=== PATIENT | male | born 1945 | race Caucasian/White ===

== ENCOUNTER 2019-09-03 21:27 | Emergency (ER) | payer OTHER ==
--- OUTSIDE RECORDS SUMMARY | 2019-09-03 21:30 | XMS REPORT | Clinical Summary ---
:1945 Author Organization [facility] Address [address] [place] [address] Care Team Providers Name Role Phone MD Edvin Primary Care Provider Allergies Active Allergy Reactions Severity Noted Date Comments Aspirin Itching 04/01/2019 Clopidogrel Itching 04/01/2019 Enoxaparin Itching 04/01/2019 Heparin Itching 04/01/2019 Other Itching 11/28/2018 All blood thinn ers Medications Medication Sig Dispensed Refills Start Date End Date Status metoprolol Take 75 mg by 0 Activ e succinate XL mouth 2 (two) (TOPROL-XL) 50 times a day. mg 24 hr tablet loperamide Take 2 mg by 0 Active (IMODIUM) 2 mg mouth 4 (four) capsule times a day as needed for diarrhea. clobetasol Apply 0 Active (TEMOVATE) 0.05 topically 2 % cream (two) times a day. Apply to back ALPRAZolam Take 0.5 mg by 0 Acti ve (XANAX) 0.5 MG mouth 2 (two) tablet times a day. calcium Chew 1 tablet 0 Active carbonate (TUMS) 3 (three) 200 mg calcium times a day. (500 mg) Before meals chewable tablet and snacks terazosin Take 5 mg by 0 12/08/2018 Active (HYTRIN) 5 MG mouth as capsule needed. NIFEdipine XL Take 30 mg by 0 Ac tive (PROCARDIA XL) mouth daily. 30 MG 24 hr tablet lidocaine-priloc Apply 1 each 0 06/25/2019 Ac tive leonard (EMLA) topically as 2.5-2.5 % cream needed for mild pain for up to 30 days. norflurane Apply 1 spray 1 Can 0 06/25/2019 Acti ve (PAIN-EASE) topically as aerosol,spray needed (Pain for dialysis) for up to 30 days. oxyCODone-acetam Take 1 tablet 20 tablet 0 06/25/2019 Active inophen by mouth every (Percocet) 5-325 6 (six) hours mg per as needed for tabletIndication moderate pain s: chronic pain for up to 5 days .chronic pain. Max Daily Amount: 4 tablets NIFEdipine XL Take 30 mg by 0 Di scontinued (PROCARDIA XL) mouth 2 (two) 0 90 MG 24 hr times a day. tablet traMADol Take 1 tablet 30 tablet 0 04/01/2019 Expir ed (ULTRAM) 50 mg (50 mg total) 0 tabletIndication by mouth every s: acute pain 8 (eight) hours as needed for severe pain for up to 10 days .acute pain. traMADol Take 1 tablet 30 tablet 0 04/21/2019 Expir ed (ULTRAM) 50 mg (50 mg total) 0 tabletIndication by mouth every s: acute pain 6 (six) hours as needed for moderate pain for up to 14 days .acute pain. gabapentin Take 1 capsule 90 capsule 0 04/21/2019 Di scontinued (NEURONTIN) 300 (300 mg total) 0 (Stop Taking at mg capsule by mouth 3 Discharg e) (three) times a day for 30 days. traMADol Take 1 tablet 24 tablet 0 05/05/2019 Expir ed (ULTRAM) 50 mg (50 mg total) 0 tabletIndication by mouth every s: acute pain 6 (six) hours as needed for moderate pain for up to 6 days .acute pain. acetaminophen-co Take 1 tablet 20 tablet 0 05/22/2019 05/27/19 2 deine (TYLENOL by mouth every 0 WITH CODEINE #3) 6 (six) hours 300-30 mg per as needed for tabletIndication moderate pain s: acute pain for up to 5 days .acute pain. acetaminophen-co Take 1 tablet 20 tablet 0 06/09/2019 06/14/19 2 deine (TYLENOL by mouth every 0 WITH CODEINE #3) 6 (six) hours 300-30 mg per as needed for tabletIndication moderate pain s: acute pain for up to 5 days .acute pain. oxyCODone-acetam Take 1 tablet 30 tablet 0 06/23/2019 06/25/19 2 Discontinued inophen by mouth every 0 (Percocet) 4 (four) hours 2.5-325 mg per as needed for tabletIndication moderate pain s: chronic pain for up to 5 days .chronic pain. 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, R BCV mild stenosis 11/29/2018 Clotted dialysis access 11/27/2018 Encounters Date Type Specialty Care Team Description 07/09/2019 Telephone Cardiovascular Hope Adame 06/25/2019 Office Visit Cardiovascular Sudhir Portillo Encounter r egarding vascular access for dialysis for end-stage renal disease (HCC) (Primary Dx); MD Jacky 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, subsequent encounter 06/25/2019 Refill Vascular Surgery Sudhir Portillo MD 06/25/2019 Telephone Cardiovascular Hope Adame 06/25/2019 Travel 06/23/2019 Travel 06/23/2019 Refill Vascular Surgery Sudhir Portillo MD 06/23/2019 Telephone Cardiovascular Gladis Pham, ABHILASH 06/11/2019 Travel 06/11/2019 Telephone Cardiovascular Hope Adame 06/09/2019 Anesthesia Event General Surgery Devang Hudson MD Cheema, Ivelisse, FNP 06/09/2019 Surgery General Surgery Sudhir Portillo LEFT ARM MD Jacky ARTERIOVENOUS FISTULA LIGATIO N 06/09/2019 Hospital General Surgery Sudhir Portillo ESRD (end stage renal disease) ([facility]); Encounter MD Jacky 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, initial encounter ([facility]) 06/09/2019 Travel 06/08/2019 Telephone Cardiovascular Hope Adame 06/05/2019 Office Visit Cardiovascular Sudhir Portillo Encounter r egarding vascular access for dialysis for end-stage renal disease ([facility]) (Primary Dx); MD Jacky 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, subsequent encounter 06/05/2019 Prep for Surgery Cardiovascular Ankit, ESRD (end stage renal disease) ([facility]) (Primary Dx); ABHILASH Griffith 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, initial encounter (HCC) 06/05/2019 Travel 06/02/2019 Travel 06/02/2019 Telephone Cardiovascular Gladis Pham RN 05/25/2019 Travel 05/25/2019 Telephone Cardiovascular Hope Adame 05/22/2019 Anesthesia Event General Surgery Devang Hudson MD Cheema, Ivelisse, FNP 05/22/2019 Surgery General Surgery Sudhir Portillo LEFT UPPER ARM MD Jacky FISTULAGRAM ,L EFT ARM ARTERIOVENO US FISTULA PSEUDOANEURYSM REPAIR, BALLOON ANGIOPLASTY AND STENTING OF THE LEFT ARM FISTULA 05/22/2019 [facility] General Surgery Sudhir Portillo ESRD (end stage renal disease) ([facility]); Encounter MD Jacky Pseudoaneurysm of arteriovenous dialysis fistula, initial encounter ([facility]) 05/21/2019 Office Visit Cardiovascular Sudhir Portillo Encounter r egarding vascular access for dialysis for end-stage renal disease ([facility]) (Primary Dx); MD Jacky 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, initial encounter ([facility]) 05/21/2019 Prep for Surgery Cardiovascular Ankit, ESRD (end stage renal disease) ([facility]) (Primary Dx); ABHILASH Griffith Pseudoaneurysm of arteriovenous dialysis fistula, initial encounter ([facility]) 05/05/2019 Office Visit Cardiovascular Connie De Leon Encounter re shakira Elias, [facility] vascular acce ss for dialysis for end-stage renal disease ([facility]) (Primary Dx) 04/23/2019 Telephone Cardiovascular Gladis Pham RN 04/21/2019 Surgery General Surgery Sudhir Portillo LEFT ARM MD Jacky ARTERIOVENOUS FISTULOGRAM WIT H THROMBECTOMY, ANGIOPLASTY BAL LOON AND STENTING 04/21/2019 Anesthesia Event General Surgery JeromyDirk mccarthy MD Sardina, Maydee, NP 04/21/2019 [facility] Surgery Sudhir Portillo End stage renal disease on dialysis ([facility]); Encounter MD Jacky Clotted dialys is access, initial encounter ([facility]) 04/16/2019 Office Visit Cardiovascular Sudhir Portillo Encounter r ricoarding MD Jacky vascular access for Connie De Leon dialysis for Jada, [facility] end-stage myrna al disease ([facility]) (Primary Dx) 04/16/2019 Prep for Surgery Cardiovascular Ankit, End stage renal disease on dialysis ([facility]) (Primary Dx); ABHILASH Griffith Clotted dialysi s access, initial encounter ([facility]) 03/31/2019 Anesthesia Event General Surgery Devang Hudson MD Cheema, Ivelisse, ICE CREAM MAN 03/31/2019 [facility] Surgery Sudhir Portillo LEFT ARM BRACHIAL MD Jacky -BRACHIAL FIST JAEL CREATION/ TRANSPOSITION , PATCH ANGIOPLASTY 03/31/2019 [facility] Sudhir Portillo Clotted d ialysis access, initial encounter ([facility]) (Primary Dx); - Encounter Medicine MD Jacky End stage renal disease on dialysis ([facility] ) 04/01/2019 Ephraim Melara MD 03/25/2019 Prep for Surgery Cardiovascular Ankit, End stage renal Gladis, ABHILASH disease on dial ysis ([facility]) (Primary Dx) 03/24/2019 Anesthesia Event General Surgery Dirk Pinzon MD Cheema, Ivelisse, FNP 03/24/2019 Surgery [facility] Surgery Sudhir Portillo BILATERAL UPPER MD Jacky EXTREMITY VENO GRAM 03/24/2019 [facility] Surgery Sudhir Portillo Encounter MD Jacky 03/16/2019 Prep for Surgery Cardiovascular Gladis Pham, RN 03/16/2019 Telephone Cardiovascular Anil Saldaña MA 02/24/2019 [facility] Surgery Sudhir Portillo End stage renal disease on dialysis ([facility]); Encounter MD Jacky Inferior vena cava obstruction; Encounter kandi galeas vascular access for dialysis for end-stage renal disease ([facility]) 02/24/2019 Telephone Cardiovascular Hope Adame 02/02/2019 Prep for Surgery Cardiovascular Ankit, End stage renal disease on dialysis (HCC) (Primary Dx); ABHILASH Griffith Inferior vena c navin obstruction; Encounter kandi galeas vascular access for dialysis for end-stage renal disease (HCC) 01/19/2019 Telephone Cardiovascular Hope Adame 11/28/2018 Surgery Procedural Pascual Laguna Venography extr emity Cardiology MD Dash right upper extremity [7582 2 (CPT)] 11/27/2018 Hospital [facility] Internal Ndubueze, Clotted michael lysis - Encounter Medicine Jamarcus Peguero, access, init ial 11/29/2018 MD encounter (HCC) (Primary Dx) after 09/02/2018 Social History Tobacco Use Types Packs/Day Years Used Date Current Every Day Smoker Cigarettes 1.5 Sta rted: 1951 Smokeless Tobacco: Never Used Tobacco Cessation: Ready to Quit: No; Co unseling Given: Yes Alcohol Use Drinks/Week oz/Week Comments Not Currently 0-1 Cans of beer 0.0 - 1.0 Sex Assigned at Date Recorded Not on file Job Start Date Occupation Industry Not on file Not on file Not on file Travel History Travel Start Travel End No recent travel history available. Last Filed Vital Signs Vital Sign Reading Time Taken Comments Blood Pressure 192/81 06/25/2019 8:48 AM CDT Pulse 65 06/25/2019 8:48 AM CDT Temperature 36.3 C (97.3 F) 06/09/2019 11:23 AM CDT Respiratory Rate 17 06/09/2019 12:00 PM CDT Oxygen Saturation 100% 06/25/2019 8:48 AM CDT Inhaled Oxygen Concentration - - Weight 72.1 kg (159 lb) 06/25/2019 8:48 AM CDT Height 170.2 cm (5' 7") 06/08/2019 4:06 PM CDT Body Mass Index 24.9 06/08/2019 4:06 PM CDT Plan of Treatment Health Maintenance Due Date Last Done Comments COLONOSCOPY SCREENING 12/05/1995 SHINGLES VACCINES (#1) 12/05/1995 65+ PNEUMOCOCCAL VACCINE (1 of 2 - PCV13) 2010 INFLUENZA VACCINE 10/17/2019 Implants Implanted Type Area Milk Route Deliverer Device Shelf Model / Identifier Expiration Serial / Date Lot Stent Endoprosthesis Viabahn [id number] 6mm Hepbi W/Rad Onofre - [id number] Coronary N/A: W L GORE 03/31/2022 [id number] / Implanted: 05/22/2019 at [facility] (Quantity not on file) Stents N/A [id number] / [id number] Stent Endprths Viabahn 75x5cm 6mm Heprn Bioactv Surf - [id number] - [id number] Surgical Left: W L GORE 08/26/2021 [id number] / Implanted: Qty: 1 on 04/21/2019 by Sudhir Portillo MD at [facility] Stents Arm [id number] / [id number] Stent Endprths Viabahn 120x2.5cm 6mm Hep rn Bioactv Surf - [id number] - [id number] Surgical Left: W L GORE 11/02/2021 [id number] / Implanted: Qty: 1 on 04/21/2019 by Sudhir Portillo MD at [facility] Stents Arm [id number] / [id number] Patch Vasclr Perph 0.8x8cm Vascu-Guard - [id number] - [id number] Vascular N/A: HORNE 10/08/2023 [id number] / Implanted: Qty: 1 on 03/31/2019 by Sudhir Portillo MD at [facility] Graft N/A BIOSCIENCE XXX / [id number] Procedures Procedure Name Priority Date/Time Associated Comments Diagnosis SD AN ELECTIVE Routine 06/09/2019 8:47 Results f or this ENDOTRACHEAL AIRWAY AM CDT procedur e are in the results section. POC PANEL 4 Routine 06/09/2019 7:31 Results for this AM CDT procedure are i n the results section. ESTIMATED GFR Routine 06/09/2019 7:20 Results fo r this AM CDT procedure are i n the results section. PARTIAL THROMBOPLASTIN Routine 06/09/2019 7:20 R esults for this TIME (PTT) AM CDT procedure are i n the results section. PROTHROMBIN TIME WITH Routine 06/09/2019 7:20 Re sults for this INR AM CDT procedure are i n the results section. HC COMPLETE BLD COUNT Routine 06/09/2019 7:20 Re sults for this W/AUTO DIFF AM CDT procedure are i n the results section. BASIC METABOLIC PANEL Routine 06/09/2019 7:20 Re sults for this AM CDT procedure are i n the results section. TYPE AND SCREEN Routine 06/09/2019 7:20 Results for this AM CDT procedure are i n the results section. OR FL < 1 HOUR Routine 05/22/2019 4:00 Results f or this PM [employer] procedure are i n the results section. SD AN ELECTIVE Routine 05/22/2019 12:36 Results f or this SUPRAGLOTTIC AIRWAY PM [employer] procedur e are in the results section. POC PANEL 4 Routine 05/22/2019 11:55 Results for this AM [employer] procedure are i n the results section. ESTIMATED GFR Routine 05/22/2019 11:50 Results fo r this AM [employer] procedure are i n the results section. PARTIAL THROMBOPLASTIN Routine 05/22/2019 11:50 R esults for this TIME (PTT) AM [employer] procedure are i n the results section. PROTHROMBIN TIME WITH Routine 05/22/2019 11:50 Re sults for this INR AM [employer] procedure are i n the results section. HC COMPLETE BLD COUNT Routine 05/22/2019 11:50 Re sults for this W/AUTO DIFF AM [employer] procedure are i n the results section. BASIC METABOLIC PANEL Routine 05/22/2019 11:50 Re sults for this AM [employer] procedure are i n the results section. TYPE AND SCREEN Routine 05/22/2019 11:50 Results for this AM [employer] procedure are i n the results section. OR FL < 1 HOUR Routine 04/21/2019 10:15 Results f or this AM [employer] procedure are i n the results section. POC PANEL 4 Routine 04/21/2019 7:09 Results for this AM [employer] procedure are i n the results section. ESTIMATED GFR Routine 04/21/2019 7:03 Results fo r this AM [employer] procedure are i n the results section. PARTIAL THROMBOPLASTIN Routine 04/21/2019 7:03 R esults for this TIME (PTT) AM [employer] procedure are i n the results section. PROTHROMBIN TIME WITH Routine 04/21/2019 7:03 Re sults for this INR AM [employer] procedure are i n the results section. HC COMPLETE BLD COUNT Routine 04/21/2019 7:03 Re sults for this W/AUTO DIFF AM [employer] procedure are i n the results section. BASIC METABOLIC PANEL Routine 04/21/2019 7:03 Re sults for this AM [employer] procedure are i n the results section. TYPE AND SCREEN Routine 04/21/2019 7:03 Results for this AM [employer] procedure are i n the results section. SD AN ELECTIVE Routine 03/31/2019 3:45 Results f or this SUPRAGLOTTIC AIRWAY PM [employer] procedur e are in the results section. POC PANEL 4 Routine 03/31/2019 10:41 Results for this AM [employer] procedure are i n the results section. ESTIMATED GFR STAT 03/31/2019 10:36 Results fo r this AM [employer] procedure are i n the results section. TYPE AND SCREEN STAT 03/31/2019 10:36 Results for this AM [employer] procedure are i n the results section. BASIC METABOLIC PANEL STAT 03/31/2019 10:36 Re sults for this AM [employer] procedure are i n the results section. OR FL < 1 HOUR Routine 03/24/2019 10:05 Results f or this AM [employer] procedure are i n the results section. ECG 12-LEAD Routine 03/24/2019 7:26 Results for this AM [employer] procedure are i n the results section. POC PANEL 4 Routine 03/24/2019 7:25 Results for this AM [employer] procedure are i n the results section. ESTIMATED GFR Routine 03/24/2019 7:18 Results fo r this AM [employer] procedure are i n the results section. PARTIAL THROMBOPLASTIN Routine 03/24/2019 7:18 R esults for this TIME (PTT) AM [employer] procedure are i n the results section. PROTHROMBIN TIME WITH Routine 03/24/2019 7:18 Re sults for this INR AM [employer] procedure are i n the results section. HC COMPLETE BLD COUNT Routine 03/24/2019 7:18 Re sults for this W/AUTO DIFF AM [employer] procedure are i n the results section. BASIC METABOLIC PANEL Routine 03/24/2019 7:18 Re sults for this AM [employer] procedure are i n the results section. TYPE AND SCREEN Routine 03/24/2019 7:18 Results for this AM [employer] procedure are i n the results section. XR CHEST 1 VW PORTABLE Routine 03/24/2019 6:48 R esults for this AM [employer] procedure are i n the results section. HEMOGLOBIN & HEMATOCRIT Routine 11/29/2018 5:00 Results for this AM CDT procedure are i n the results section. ESTIMATED GFR Routine 11/29/2018 4:00 Results fo r this AM CDT procedure are i n the results section. BASIC METABOLIC PANEL Routine 11/29/2018 4:00 Re sults for this AM CDT procedure are i n the results section. HEPATITIS B SURFACE Routine 11/28/2018 10:08 Resu lts for this ANTIGEN PM CDT procedure are i n the results section. CV VENOGRAPHY SUPERIOR Routine 11/28/2018 7:18 Clotted dialys is VENA CAVA PM CDT access, initial encounter (HCC) Procedure Note - Pascual Laguna MD - 02/10/2019 1:27 PM [employer] VENA CAVA FILTER INSERTION Routine 11/28/2018 7:18 PM C DT Clotted dialysis access, initial encounter (HCC) Procedure Note - Pascual Laguna MD - 02/10/2019 1:27 PM [employer] CV INJECTION FOR Routine 11/28/2018 7:18 PM CDT Clotted dialy sis access, VENOGRAPHY initial encounter (HCC) Procedure Note - Pascual Laguna MD - 02/10/2019 1:27 PM [employer] CV VENOGRAPHY EXTREMITY Routine 11/28/2018 7:18 PM CDT Clotted dialysis access, BILATERAL initial encounter (HCC) Procedure Note - Pascual Laguna MD - 02/10/2019 1:27 PM [employer] CV TUNNELED CATHETER Routine 11/28/2018 7:18 PM CDT Clotted d ialysis access, INSERTION initial encounter (HCC) Procedure Note - Pascual Laguna MD - 02/10/2019 1:27 PM [employer] HEPATITIS B SURFACE ANTIGEN Routine 11/28/2018 12:15 PM CDT Results for this procedure are i n the results section . TTE COMPLETE, WO CONTRAST, W Routine 11/28/2018 12:00 PM CDT Results for this DOPPLER (56159) procedure ar e in the results section . TYPE AND SCREEN Routine 11/28/2018 4:45 AM CDT R esults for this procedure are i n the results section . HC COMPLETE BLD COUNT W/AUTO Routine 11/28/2018 4:45 AM CDT Results for this DIFF procedure are i n the results section . ESTIMATED GFR Routine 11/28/2018 4:00 AM CDT Res ults for this procedure are i n the results section . THYROID STIMULATING HORMONE Routine 11/28/2018 4:00 AM CDT Results for this procedure are i n the results section . VITAMIN B12 LEVEL Routine 11/28/2018 4:00 AM CDT Results for this procedure are i n the results section . TOTAL IRON BINDING CAPACITY Routine 11/28/2018 4:00 AM CDT Results for this procedure are i n the results section . FOLATE LEVEL Routine 11/28/2018 4:00 AM CDT Resu lts for this procedure are i n the results section . FERRITIN LEVEL Routine 11/28/2018 4:00 AM CDT Re sults for this procedure are i n the results section . BASIC METABOLIC PANEL Routine 11/28/2018 4:00 AM CDT Results for this procedure are i n the results section . ECG 12-LEAD Routine 11/27/2018 6:57 PM CDT Resu lts for this procedure are i n the results section . PROTHROMBIN TIME WITH INR STAT 11/27/2018 1:15 PM CDT Results for this procedure are i n the results section . ESTIMATED GFR STAT 11/27/2018 1:15 PM CDT Res ults for this procedure are i n the results section . PHOSPHORUS LEVEL STAT 11/27/2018 1:15 PM CDT Results for this procedure are i n the results section . PARTIAL THROMBOPLASTIN TIME STAT 11/27/2018 1:15 PM CDT Results for this (PTT) procedure are i n the results section . MAGNESIUM LEVEL STAT 11/27/2018 1:15 PM CDT R esults for this procedure are i n the results section . COMPREHENSIVE METABOLIC STAT 11/27/2018 1:15 PM CDT Results for this PANEL procedure are i n the results section . HC COMPLETE BLD COUNT W/AUTO STAT 11/27/2018 1:15 PM CDT Results for this DIFF procedure are i n the results section . after 09/02/2018 Results Airway (06/09/2019 8:47 AM CDT) Narrative Performed At Devang Hudson MD 05/17 8:48 AM Airway Date/Time: 06/09/2019 8:47 AM Performed by: Devang Hudson MD Authorized by: Devang Hudson MD Location: OR Urgency: Elective Difficult Airway: No Anesthesiologist: Pati Hudson MD Resident/WINDOW SHADE CUTTER AND MOUNTER/AA: Carmen Hart CRNA Performed by: resident/WINDOW SHADE CUTTER AND MOUNTER/AA Preoxygenated with 100% O2: Yes C-spine Precautions Maintained Throughou t: Yes Mask Ventilation: Easy mask Final Airway Type: Endotracheal airway Final Endotracheal Airway: ETT Cuffed: Yes Technique Used: Direct laryngoscopy Devices/Methods Used in Placement: Int ubating stylet Insertion Site: Oral Blade Type: Hancock Laryngoscope Blade/Videolaryngoscope Gregg padilla Size: 2 ETT Size (mm): 8.0 Cuff at minimum occlusion pressure: Yes Measured from: Lips ETT to Lips (cm): 24 Placement Verified by: CO2 detection, di rect visualization and equal breath sounds Laryngoscopic view: Grade I - full vie w of glottis Rapid Sequence Induction (RSI): No Modified RSI: No Number of Attempts at Approach: 1 POC panel 4 (06/09/2019 7:31 AM CDT)Only the most recent of5 resultswithin the time period is included. Pathologist [facility] POC sodium 135 135 - 148 [facility] mmol/L [facility] POC potassium 4.2 3.5 - 5.0 [facility] mmol/L [facility] POC hematocrit 33 (L) 41 - 51 % [facility] POC glucose 82 65 - 99 mg/dL [facility] Comment: [place] Waste Minimization Technician Name: [facility] Device ID: [id number] POC hemoglobin 11.2 (L) 14.0 - 18.0 [facility] g/dL [facility] Specimen Blood Performing Organization Address City/State/Zipcode Phone Number [facility] DEPARTMENT OF PATHOLOGY [address] [facility] [place] [address] [address] GENOM[address] MEDICINE [facility] [id number] [facility] [place] [address] HOSPITAL Estimated GFR (06/09/2019 7:20 AM CDT)Only the most recent of8 resultswithin the time period is included. [facility] Estimated GFR 6 (A) mL/min/1.73 [facility] Comment: m2 [place] Catergory Units Interpretation HOS PITAL G1 >=90 Normal or high G2 60-89 Mildly decreased G3a 45-59 Mildly to moderately decreas ed G3b 30-44 Moderately to severely decre ased G4 15-29 Severely decreased G5 <15 Kidney failure The eGFR was calculated using the Chronic Kidney Disea se Epidemiology Collaboration (CKD-EPI) equation. Interpretation is based on recommendations of the National Kidney Foundation-Kidney Disease Outcomes Bonifacio lity Initiative (NKF-KDOQI) published in 2014. Specimen Performing Organization Address [facility]/Zipcode Phone Number [facility] DEPARTMENT OF PATHOLOGY [address] [place] [address] Partial thromboplastin time, activated (06/09/2019 7:20 AM CDT)Only the most recent of5 resultswithin the time period is included. PTT >250.0 (HH) 23.0 - 36.0 [facility] Comment: [facility] PTT therapeutic range for unfractionated heparin is HOSPITAL 61.0-112.0 seconds which corresponds to Anti-Xa 0.3-0.7 U/ml. Specimen Blood Performing Organization Address [facility] Servicescode Phone Number [facility] DEPARTMENT OF PATHOLOGY [address] [place] [address] Prothrombin time with INR (06/09/2019 7:20 AM CDT)Only the most recent of5 resultswithin the time period is included. Pathologist [facility] Prothrombin time 14.3 11.5 - 14.5 [facility] INR 1.1 READING Comment: LORETTA JEAN [facility] International Normalized Ratio (INR) is a therapeu [facility] monitoring tool for patients who are stable on oral anticoagulant therapy. An INR of 2.0-3.0 is suggested for deep vein thrombosis/pulmonary embolism. Specimen Blood Performing Organization Address [facility]/Zipcode Phone Number [facility] DEPARTMENT OF PATHOLOGY [address] [place] [address] CBC with platelet and differential (06/09/2019 7:20 AM CDT)Only the most recent of6 resultswithin the time period is included. WBC 7.9 4.5 - 11.0 k/uL [facility] RBC 3.35 (L) 4.40 - 6.00 READING LORETTA m/uL [facility] HGB 10.2 (L) 14.0 - 18.0 [facility] g/dL [facility] HCT 32.6 (L) 41.0 - 51.0 % [facility] MCV 97.3 82.0 - 100.0 fL [facility] MCH 30.4 27.0 - 34.0 pg [facility] MCHC 31.3 31.0 - 37.0 [facility] g/dL [facility] RDW - SD 52.1 37.0 - 55.0 fL [facility] MPV 11.4 (H) 6.9 - 11.0 fL [facility] Platelet count 179 150 - 400 K/uL [facility] Nucleated RBC 0.00 /100 WBC [facility] Neutrophils 70.2 (H) 39.0 - 69.0 % [facility] Lymphocytes 18.7 (L) 25.0 - 45.0 % [facility] Monocytes 7.7 0.0 - 10.0 % [facility] Eosinophils 2.0 0.0 - 5.0 % [facility] Basophils 1.0 0.0 - 1.0 % [facility] Immature granulocytes 0.4 0.0 - 1.0 % [facility] Specimen Blood Performing Organization Address City/State/Zipcode Phone Number [facility] DEPARTMENT OF PATHOLOGY [address] [place] [address] AND [place] [address] HOSPITAL Type and screen (06/09/2019 7:20 AM CDT)Only the most recent of6 resultswithin the time period is included. Pathologist Sig nature ABO grouping O [facility] Rh type POS [facility] Antibody screen (gel) NEG [facility] Specimen Blood Performing Organization Address City/[facility]/Zipcode Phone Number [facility] DEPARTMENT OF PATHOLOGY [address] [place] [address] AND [place] [address] HOSPITAL Basic metabolic panel (06/09/2019 7:20 AM CDT)Only the most recent of7 results within the time period is included. Pathologist Sig nature Sodium 133 (L) 135 - 148 mEq/L [facility] Potassium 4.4 3.5 - 5.0 mEq/L [facility] Chloride 92 (L) 98 - 112 mEq/L [facility] CO2 25 24 - 31 mEq/L [facility] Anion gap 16@ANIO (H) 7 - 15 mEq/L [facility] BUN 33 (H) 8 - 23 mg/dL [facility] Creatinine 8.05 (H) 0.70 - 1.20 mg/dL [facility] Glucose 86 65 - 99 mg/dL [facility] Calcium 9.3 8.8 - 10.2 mg/dL [facility] Specimen Blood Performing Organization Address City/State/Zipcode Phone Number [facility] DEPARTMENT OF PATHOLOGY [address] [facility] [address] [address] [facility] [address] [facility] [place] [address] H[place]PITAL [place] < 1 Hour (05/22/2019 4:00 PM [employer] SUPERVISOR)Only the most recent of3 results within the time period is included. Specimen Narrative Performed At EXAMINATION: [place] < 1 HOUR [facility] C-arm fluoroscopy was requested in OR. IMPRESSION: Separate operative report will be issued by the physic camilo performing the procedure. [id number] Procedure Note Hm Interface, Radiology Results Incoming - 05/27/2019 2:38 PM CDT EXAMINATION: [place] < 1 HOUR C-arm fluoroscopy was requested in OR. IMPRESSION: Separate operative report will be issued by the physician performing the procedure. [id number] Performing Organization Address City/State/Zipcode Phone Number [facility] [address] [place] [address] Airway (05/22/2019 12:36 PM [employer] SUPERVISOR) Narrative Performed At Magdalene Smith CRNA 05/22/2019 12:36 PM Airway Date/Time: 05/22/2019 12:36 PM Performed by: Magdalene Smith CRNA Authorized by: Devang Hudson MD Location: OR Urgency: Elective Difficult Airway: No Anesthesiologist: Pati Hudson MD Resident/WINDOW SHADE CUTTER [employer] MOUNTER/AA: Magdalene Smith CRNA Performed by: resident/WINDOW SHADE CUTTER [employer] MOUNTER/AA Preoxygenated with 100% O2: Yes C-spine Precautions Maintained Throughou t: Yes Mask Ventilation: Easy mask Final Airway Type: Supraglottic airway Final LMA: I-Gel LMA Size: 5 Number of Attempts at Approach: 1 Airway (03/31/2019 3:45 PM [employer] SUPERVISOR) Narrative Performed At Maya Mata CRNA 03/31/2019 4:17 PM Airway Date/Time: 03/31/2019 3:45 PM Performed by: Maya Mata CRNA Authorized by: Devang Hudson MD Location: OR Urgency: Elective Difficult Airway: No Anesthesiologist: Pati Hudson MD Resident/WINDOW SHADE CUTTER [employer] MOUNTER/AA: Maya Mata C RNA Performed by: resident/WINDOW SHADE CUTTER [employer] MOUNTER/AA Preoxygenated with 100% O2: Yes C-spine Precautions Maintained Throughou t: Yes Mask Ventilation: Not attempted Final Airway Type: Supraglottic airway Final LMA: I-Gel LMA Size: 5 Number of Attempts at Approach: 1 ECG 12 lead (03/24/2019 7:26 AM [employer] SUPERVISOR)Only the most recent of2 resultswithin the time period is included. Pathologist Sig nature Ventricular rate 58 [facility] Atrial rate 58 [facility] SD interval 262 [facility] QRSD interval 86 [facility] QT interval 448 [facility] QTC interval 439 [facility] P axis 1 71 [facility] QRS axis 1 -56 [facility] T wave axis 83 [facility] EKG impression Sinus bradycardia with 1st d egree AV block-Left axis deviation- Inferior infarct (cited on or before 24-DEC-2013)-Anteroseptal infarct (cited on or before 02-NOV-2011)-Abnormal ECG-In automated comparison with ECG of 27-NOV-2018 18:57,-No significant [facility] change was found-Electronica lly Signed By Michael MOREL, Irlanda (2013) on 03/24/2019 7:47:25 AM Specimen Narrative Performed At This result has an attachment that is no t available. Performing Organization Address City/State/Zipcode Phone Number [facility] [address] [place] [phone] XR Chest 1 Vw Portable (03/24/2019 6:48 AM [employer] SUPERVISOR) Specimen Narrative Performed At EXAMINATION: XR CHEST 1 VW PORTABLE [facility] CLINICAL HISTORY: Pre-Op COMPARISON: December 24, 2013 IMPRESSION: Interval removal of the IVC dialysis catheter. Interva l insertion of a right internal jugular HD catheter, the tips overlying the distal superior vena cava and cavoatrial juncti on. Heart is upper limits of normal in size similar to bef ore. Aorta is tortuous and diffuse atherosclerotic calcifications novak ve increased compared to prior. Bilateral basilar predominant interstitial and ground- glass opacities are nonspecific and may be due to mild e darin, pneumonitis, or fibrosis. Small loculated left pleural effusion and mild left pl eural calcification. No pneumothorax. No acute or suspicious osseous lesion is identified. A vascular stent is partially imaged within the medial soft tissues of the right upper extremity. Peripheral arterial calcifi cations are also present. [facility] ASSOCIATIONL-[id number] Procedure Note Interface, Radiology Results Incoming - 03/24/2019 7:09 AM [employer] SUPERVISOR EXAMINATION: XR CHEST 1 VW PORTABLE CLINICAL HISTORY: Pre-Op COMPARISON: December 24, 2013 IMPRESSION: Interval removal of the IVC dialysis cat heter. Interval insertion of a right internal jugular HD catheter, the tips overlying the distal superior vena cava and cavoatrial junction. Heart is upper limits of normal in size similar to before. Aorta is tortuous and diffuse atherosclerotic calcifications have increased compared to prior. Bilateral basilar predominant interstiti al and ground-glass opacities are nonspecific and may be due to mild edema, pneumonitis, or fibrosis. Small loculated left pleural effusion an d mild left pleural calcification. No pneumothorax. No acute or suspicious osseous lesion is identified. A vascular stent is partially imaged wit hin the medial soft tissues of the right upper extremity. Peripheral arterial calcifications are also present. [facility] ASSOCIATIONL-[id number] Performing Organization Address City/State/Zipcode Phone Number [facility] [address] [place] [address] Hemoglobin & hematocrit (11/29/2018 5:00 AM CDT) Pathologist Sig nature HGB 7.9 (L) 14.0 - 18.0 g/dL [facility] HCT 25.2 (L) 41.0 - 51.0 % [facility] Specimen Blood Performing Organization Address City/State/Zipcode Phone Number [facility] DEPARTMENT OF PATHOLOGY AND [address] [place] [address] Hepatitis B surface antigen (11/28/2018 10:08 PM CDT)Only the most recent of2 resultswithin the time period is included. Pathologist Sig nature Hepatitis B surface Non-reactive Non-reactive [facility] Specimen Blood Performing Organization Address City/State/Zipcode Phone Number [facility] DEPARTMENT OF PATHOLOGY AND [address] [place] [address] [place] [address] Cv invasive peripheral vascular procedure (11/28/2018 7:18 PM CDT) Specimen Procedure Note Pascual Laugna MD - 02/10/2019 1:27 PM [employer]PERVIS[employer] clinical laboratory technologist procedure (11/28/2018 7:18 PM CDT) Specimen Procedure Note Pascual Laguna MD - 02/10/2019 1:27 PM [employer] SUPERVISOR Echocardiogram complete w contrast and 3D if needed (11/28/2018 12:00 PM CDT) Specimen Narrative Performed At [facility] Echo cardiography Report [address] [place] [address] Pat.Name: ROSALES CAMACHO Pat.ID: [id number] .Date: 11/28/2018 Refer.MD: JAMARCUS SHIELDS MD Exam Time: 10:39:00 AM Study Type:Ro utine Echo Height: 68in Weight: 159lb BSA: 1.86 m2 Ag e: 1945,72Y Sex: MALE BP: 175/71 HR: 68 bpm Sonogr phr: Katty Perez RDCS Pat. Stat.:Inpatient Room: 82 Study Status:Final Echo Event ID:[id number] Order ID: [id number] Reason for Study:HTN History / Clinical:Arrhythmias, Chronic Renal Failure, Dizziness, Edema, Hypertension, Smoker 2ppd Procedures:2D Echo, Colorflow Doppler, S train Race: White SUMMARY: LV size is normal. There is mild concentric LV hypertrophy . LV EF is normal. Estimated PA systolic pressure is 40 mm Hg, assuming a mean RAP of 5 mmHg. FINDINGS: LV: LV size is normal. There is mild concentric LV hypertrophy. LV EF is normal. Overal l wall motion is normal. RV: RV size is normal. RV systo lic function is normal. LA: LA volume is severely enlar ged. RA: RA size is normal. AO: Aortic root diameter is mil dly enlarged. KAMINI: No pericardial effusion. AV: Mild thickening and calcifi cation of AV leaflets. Mild aortic regurgitation. MV: Mild thickening and calcifi cation of mitral leaflets. Mild mitral annular calcification. Mild mi tral regurgitation. PV: No structural PV abnormalit ies noted. A trace of pulmonic regurgitation. TV: No structural TV abnormalit ies noted. Aquino: Diastolic dysfunction Grade II (Moderate): Impaired relaxation with elevate d LV filling pressures. Other: Estimated PA systolic pressu re is 40 mmHg, assuming a mean RAP of 5 mmHg. MEASUREMENTS: 2D Parasternal [place] LVOT 2 cm LVPWd 1.3 cm LVIDd 5 cm Index 2.7 cm/m LA Ds 4.5 cm LVIDs 3.3 cm Ao An 2.3 cm LV%fs 34.6 % Ao Rtd 4 cm Index 2.2 cm/m IVSd 1.3 cm RWT 0.4 LA Sng Plane LA Area 29.2 cm2 (8.8-23.4) LA Vol 105.9 ml Index 56.9 ml/m LA LngAx 6.6 cm DOPPLER LVOT Stroke Vol LVOT 2 cm LVOT CO 0.5 l/min LVOT TVI 2.8 cm LVOT CI 0.3 l/m/m2 LVOT Tm 386 msec HR 60 bpm LVOT SV 8.8 ml Signed 11/28/2018 02:40 PM Judd Wylie MD Procedure Note Interface, Radiology Results In - 2018 2:40 PM CDT Echocardiography Report [address] [place] [address] Pat.Name: ROSALES CAMACHO Pat.I D: [id number] St.Date: 11/28/2018 Refer.MD: JAMARCUS SHIELDS MD Exam Time: 10:39:00 AM Study Type:Routine Echo Height: 68in Weigh t: 159lb BSA: 1.86 m2 Age: 9 1945,72Y Sex: MALE BP: 175/71 HR: 68 bpm Sonog rphr: Katty Perez RDCS Pat. Stat.:Inpatient Room: [facility] Study Status:Final Echo Event ID:[id number] Order ID: [id number] Reason for Study:HTN History / Clinical:Arrhythmias, Chronic Renal Failure, Dizziness, Edema, Hypertension, Smoker 2ppd Procedures:2D Echo, Colorflow Doppler, S train Race: White SUMMARY: LV size is normal. There is mild concentric LV hypertrophy . LV EF is normal. Estimated PA systolic pressure is 40 mm Hg, assuming a mean RAP of 5 mmHg. FINDINGS: LV: LV size is normal. There is mi ld concentric LV hypertrophy. LV EF is normal. Overall wall motion is normal. RV: RV size is normal. RV systolic function is normal. LA: LA volume is severely enlarged . RA: RA size is normal. AO: Aortic root diameter is mildly enlarged. KAMINI: No pericardial effusion. AV: Mild thickening and calcificat ion of AV leaflets. Mild aortic regurgitation. MV: Mild thickening and calcificat ion of mitral leaflets. Mild mitral annular calcification. Mild mitral regurgitation. PV: No structural PV abnormalities noted. A trace of pulmonic regurgitation. TV: No structural TV abnormalities noted. Aquino: Diastolic dysfunction Grade II (Moderate): Impaired relaxation with elevated LV f illing pressures. Other: Estimated PA systolic pressure is 40 mmHg, assuming a mean RAP of 5 mmHg. MEASUREMENTS: 2D Parasternal [place] LVOT 2 cm LVPW d 1.3 cm LVIDd 5 cm Inde x 2.7 cm/m LA Ds 4.5 cm LVIDs 3.3 cm Ao A n 2.3 cm LV%fs 34.6 % Ao R td 4 cm Index 2.2 cm/m IVSd 1.3 cm RWT 0.4 LA Sng Plane LA Area 29.2 cm2 (8.8-23.4) LA Vol 105.9 ml Index 56.9 ml/m LA LngAx 6.6 cm DOPPLER LVOT Stroke Vol LVOT 2 cm LVOT CO 0.5 l/min LVOT TVI 2.8 cm LVOT CI 0.3 l/m/m2 LVOT Tm 386 msec HR 60 bpm LVOT SV 8.8 ml Signed 11/28/2018 02:40 PM Judd Wylie MD Performing Organization Address City/State/Zipcode Phone Number [facility] [address] [place] [address] Total iron binding capacity (11/28/2018 4:00 AM CDT) [facility] Iron level 65 59 - 158 ug/dL [facility] Iron binding capacity 210 200 - 400 ug/dL [facility] % Saturation 31.0 20.0 - 40.0 % [facility] Specimen Plasma specimen Performing Organization Address [facility] Services[facility] Phone Number [facility] DEPARTMENT OF PATHOLOGY AND [address] [place] [address] [place] [address] Thyroid stimulating hormone (11/28/2018 4:00 AM CDT) Pathologist Sig nature TSH 3.88 0.27 - 4.20 uIU/mL [facility] ITAL Specimen Plasma specimen Performing Organization Address [facility] Services[facility] Phone Number [facility] DEPARTMENT OF PATHOLOGY AND [address] [place] [address] [place] [address] Folate level (11/28/2018 4:00 AM CDT) Pathologist Sig nature Folate 7.7 4.8 - 24.2 ng/mL [facility] [place] Specimen Serum Performing Organization Address [facility] Phone Number [facility] DEPARTMENT OF PATHOLOGY AND [address] [place] [address] [place] [address] Ferritin level (11/28/2018 4:00 AM CDT) Pathologist Sig nature Ferritin level 1,376 (H) 30 - 400 ng/mL [facility] Specimen Plasma specimen Performing Organization Address [facility] Phone Number [facility] DEPARTMENT OF PATHOLOGY AND [address] [place] [address] [place] [address] Vitamin B12 level (11/28/2018 4:00 AM CDT) Pathologist [facility] Vitamin B12 494 856 - 526 [facility] Comment: pg/mL HOSPITAL Significant overlap exists between normal and deficien cy states. However, most patients with deficiencies will have Ser um B12 <200 pg/mL. Specimen Serum Performing Organization Address [facility] Services[facility] Phone Number [facility] DEPARTMENT OF PATHOLOGY AND [address] [place] [address] [place] [address] Phosphorus level (11/27/2018 1:15 PM CDT) Pathologist Sig nature Phosphorus 6.0 (H) 2.4 - 4.5 mg/dL [facility] Specimen Plasma specimen Performing Organization Address City/[facility]/Zipcode Phone Number [facility] DEPARTMENT OF PATHOLOGY AND [address] [place], [place] [address] [facility] [address] [place] [address] Magnesium level (11/27/2018 1:15 PM CDT) Pathologist Sig nature Magnesium 2.2 1.6 - 2.4 mg/dL [facility] Specimen Plasma specimen Performing Organization Address City/[facility] Services[facility] Phone Number [facility] DEPARTMENT OF PATHOLOGY AND [address] [place] [address] [facility] [address] [place] [address] Comprehensive metabolic panel (11/27/2018 1:15 PM CDT) Pathologist [facility] Sodium 137 135 - 148 [facility] mEq/L [facility] Potassium 5.5 (H) 3.5 - 5.0 [facility] mEq/L [facility] Chloride 93 (L) 98 - 112 [facility] mEq/L [facility] CO2 25 24 - 31 mEq/L [facility] Anion gap 19@ANIO (H) 7 - 15 mEq/L [facility] BUN 101 (H) 8 - 23 mg/dL [facility] Creatinine 15.37 (H) 0.70 - 1.20 [facility] mg/dL [facility] Glucose 153 (H) 65 - 99 mg/dL [facility] Calcium 10.6 (H) 8.8 - 10.2 [facility] mg/dL [facility] Protein 7.1 6.3 - 8.3 [facility] Comment: g/dL HOSPITAL 4.6-7.0 g/dL 1 week 4.4-7.6 g/dL 7 months-1year 5.1-7.3 g/dL 1-2 years 5.6-7.5 g/dL >3 years 6.0-8.0 g/dL 18-150 6.3-8.3 g/dL Albumin 3.4 (L) 3.5 - 5.0 [facility] g/dL [facility] A/G ratio 0.9 0.7 - 3.8 [facility] Alkaline phosphatase 155 (H) 40 - 129 U/L [facility] AST 12 10 - 50 U/L [facility] ALT 9 5 - 50 U/L [facility] Total bilirubin 0.3 0.0 - 1.2 [facility] mg/dL [facility] Specimen Plasma specimen Performing Organization Address City/State/Zipcode Phone Number [facility] DEPARTMENT OF PATHOLOGY AND [address] [place], [place] [address] GENOMIC MEDICINE [facility] [address] [place] [address] after 09/02/2018 Insurance Payer Benefit Plan / Subscriber ID Effective Phone Address T ype Group Dates MEDICARE MEDICARE PART A xxxxxxxxxxx 2010-Pres [place], [place] Medicare AND B ent COMMERCIAL MISC MISC COMMERCIAL xxxxxxxxx 2012-Pres Commercial ent Advance Directives For more information, please contact: [phone] Type Date Recorded 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
--- OUTSIDE RECORDS SUMMARY | 2019-09-03 21:31 | XMS REPORT | Continuity of Care Document ---
:[address] [facility] t Address [address] [place] [address] Dr. Booth [address] [place] [id number] Care Team Providers Name Role Phone Edvin MOREL Primary Care Physician Deep Attending Clinician Unavailable Jacky Portillo MD Attending Clinician Ankit HUNG Attending Clinician Unavailable Becca MOREL, Kourtney Attending Clinician Rosalva GILLETTE Attending Clinician Jada Lomeli Attending Clinician Antonio Pinzon MD Attending Clinician Zahida VEGA Attending Clinician Saritha MOREL PHermila Attending Clinician Piotr ELLIS Attending Clinician Unavailable Alyson MOREL, Marielena Attending Clinician Dash Laguna MD Attending Clinician BANDAR Admitting Clinician Unavailable SARITHA Admitting Clinician Unavailable ALYSON Admitting Clinician Unavailable Payers Payer Name Policy Policy Number Effective Expiration Source Type Date Date MEDICAREMEDICARE PART xxxxxxxxxxx 2010 Lauri Ng AND 00:00:00 Buddhism Bxxxxxxxxxxx2010- TainaCREEDE RIMedicare COMMERCIAL MISCMISC xxxxxxxxx 2012 [place] COMMERCIALxxxxxxxxx5/ 00:00:00 Met correa 03/2012-Varun ial Problems Condition Condition Condition Status Onset Resolution Last Treating Co mments Source Name Details Category Date Date Treatment Clinician Date 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 3-20 Added Method i of of 00:00: automatic st dialysis dialysis 00 ally from vascular vascular request access access for surgery [id number] 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 3-05 Added Methodi arterioven arterioven 00:00: automatic st ous ous 00 ally from dialysis dialysis request fistula fistula for surgery [id number] ESRD (end ESRD (end Disease Active N[place]en ston stage stage 1-15 Methodi renal renal 00:00: st disease) disease) 00 End stage End stage Disease Active 2018-03 Overview: [place] renal renal 18 Added Methodi disease on disease on 00:00: automatic st dialysis dialysis 00 ally from request for surgery [id number] Encounter Encounter Disease Active 2018-03 Overview: [place] regarding regarding 04-04 Added Meth len vascular vascular 00:00: automatic st access for access for 00 ally from dialysis dialysis request for for for end-stage end-stage surgery renal renal [id number] disease disease 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-29 Meth len obstructio obstructio 00:00: st n n 00 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, occlusion, 14 Me thodi R BCV mild R BCV mild 00:00: st stenosis stenosis 00 Clotted Clotted Disease Active [place] dialysis dialysis 912 Method i access access 00:00: st 00 Allergies, Adverse Reactions, Alerts Allergy Allergy Status Severity Reaction(s) Onset Inactive Treating Comm ents Source Name Type Date Date Clinician Aspirin Propensi Active Itching [place] ty to 04-01 Methodi adverse 00:00: st reaction 00 s to drug Clopidog Propensi Active Itching [place] rel ty to 04-01 Methodi adverse 00:00: st reaction 00 s to drug Enoxapar Propensi Active Itching [place] in ty to 04-01 Methodi adverse 00:00: st reaction 00 s to drug Heparin Propensi Active Itching [place] ty to 04-01 Methodi adverse 00:00: st reaction 00 s to drug Other Propensi Active Itching All blood [place] ty to 9-13 thinners Methodi adverse 00:00: st reaction 00 s Social History Social Habit Start Date Stop Date Quantity Comments Source History of tobacco Current every Naveenoctavio newell Buddhism use day smoker Sex Assigned At [place] M ethodist Cigarettes smoked 2019-06-10 2019-06-10 [facility] Buddhism current (pack per 00:00:00 00:00:00 day) - Reported Alcohol intake 2019-06-10 2019-06-10 [facility] (finding) Smoking Status Start Date Stop Date Source Current every day smoker 2019-06-10 00:00:00 Naveen newell Buddhism Medications Ordered Filled Start Stop Current Ordering Indication Dosage Frequency Signature Comments Components Source Medication Medication Date Date Medication? Clinician (SIG) Name Name lidocaine-p Yes Apply [place] rilocaine 4-09 topically Metho di (EMLA) 00:00: as needed st 2.5-2.5 % 00 for mild cream pain for up to 30 days. norflurane Yes 1{spray Apply 1 [place] (PAIN-EASE) 4-09 } spray Methodi aerosol,spr 00:00: topically s t ay 00 as needed (Pain for dialysis) for up to 30 days. oxyCODone-a Yes chronic 1{tbl} Q6H Take 1 [place] cetaminophe 4-09 pain tablet by [facility] hodi n 00:00: mouth st (Percocet) 00 every 6 5-325 mg (six) per tablet hours as needed for moderate pain for up to 5 days .chronic pain. Max Daily Amount: 4 tablets oxyCODone-a 0 2020- No chronic 1{tbl} Q4H Take 1 [place] cetaminophe 4-07 04-09 pain tablet by Ca thodi n 00:00: 00:[address] (Percocet) 00 :00 every 4 2.5-325 mg (four) per tablet hours as needed for moderate pain for up to 5 days .chronic pain. Max Daily Amount: 6 tablets metoprolol Yes 75mg Q.5D Take 75 mg [place] succinate 3-24 by mouth 2 Meth len XL 12:22: (two) st (TOPROL-XL) 47 times a 50 mg 24 hr day. tablet loperamide 2020-0 Yes 2mg Q.25D Take 2 mg [place] (IMODIUM) 2 3-24 by mouth 4 Me thodi mg capsule 12:22: (four) st 47 times a day as needed for diarrhea. clobetasol 2020-0 Yes Q.5D Apply [place] (TEMOVATE) 3-24 topically Meth len 0.05 % 12:22: 2 (two) st cream 47 times a day. Apply to back ALPRAZolam 2020-0 Yes .5mg Q.5D Take 0.5 [place] st[place] (XANAX) 0.5 3-24 mg by Methodi MG tablet 12:22: mouth 2 st 47 (two) times a day. calcium 2020-0 Yes 1{tbl} Q.73784307 Chew 1 [place] carbonate 06-08 [id number] tablet 3 Methodi (TUMS) 200 12:22: 3D (three) st mg calcium 47 times a (500 mg) day. chewable Before tablet meals and snacks NIFEdipine 2020-0 Yes 30mg QD Take 30 mg [place] XL 3-24 by mouth Methodi (PROCARDIA 12:22: daily. st XL) 30 MG 47 24 hr tablet acetaminoph 2019-0 2020- No acute pain 1{tbl} Q6H Take 1 [facility] en-codeine 06-08-29 tablet by Met hodi (TYLENOL 00:00: 23:[address] WITH 00 :00 every 6 CODEINE #3) (six) 300-30 mg hours as per tablet needed for moderate pain for up to 5 days .acute pain. NIFEdipine 2019-0 2020- No 30mg Q.5D Take 30 mg [place] XL 06-07- by mouth 2 Methodi (PROCARDIA 15:37: 00:00 (two) st XL) 90 MG 07 :00 times a 24 hr day. tablet acetaminoph 2020-0 2020- No acute pain 1{tbl} Q6H Take 1 [place] en-codeine - 03-11 tablet by Met hodi (TYLENOL 00:00: 23:[address] WITH 00 :00 every 6 CODEINE #3) (six) 300-30 mg hours as per tablet needed for moderate pain for up to 5 days .acute pain. traMADol 2020-0 2020- No acute pain 50mg Q6H Take 1 [place] (ULTRAM) 50 2-18 -24 tablet (50 M ethodi mg tablet 00:00: 23:59 mg total) st 00 :00 by mouth every 6 (six) hours as needed for moderate pain for up to 6 days .acute pain. gabapentin 2019- No 300mg Q.[id number] Take 1 [place] (NEURONTIN) 2-04 03-06 [id number] capsule Methodi 300 mg 00:00: 00:00 3D ([address] capsule 00 :00 total) by mouth 3 (three) times a day for 30 days. traMADol 2019- No acute pain 50mg Q6H Take 1 [place] (ULTRAM) 50 2-04 -18 tablet (50 M ethodi mg tablet 00:00: 23:59 mg total) st 00 :00 by mouth every 6 (six) hours as needed for moderate pain for up to 14 days .acute pain. traMADol 2019- No acute pain 50mg Q8H Take 1 [place] (ULTRAM) 50 1-15 -25 tablet (50 M ethodi mg tablet 00:00: 23:59 mg total) st 00 :00 by mouth every 8 (eight) hours as needed for severe pain for up to 10 days .acute pain. terazosin Yes 5mg Take 5 mg [place] st[place] (HYTRIN) 5 12-08 by mouth Metho di MG capsule 00:00: as needed. s t 00 Vital Signs Vital Name Observation Time Observation Value Comments Source Systolic blood 2019-06-25 08:48:00 192 mm[Hg] Denia n Buddhism pressure Diastolic blood 2019-06-25 08:48:00 81 mm[Hg] Savanah on Buddhism pressure Heart rate 2019-06-25 08:48:00 65 /min Walker Hunt Body weight 2019-06-25 08:48:00 72.122 kg Walker Hunt BMI 2019-06-25 08:48:00 24.90 kg/m2 Walker Hunt Oxygen saturation in 2019-06-25 08:48:00 100 /min Walker Hunt Arterial blood by Pulse oximetry Respiratory rate 2019-06-09 12:00:00 17 /min John ruiz Buddhism Body temperature 2019-06-09 11:23:00 36.28 Macey John Hunt Body height 2019-06-08 16:06:00 170.2 cm Walker Hunt Procedures Procedure Date / Time Performing Clinician Source Performed MD AN ELECTIVE 2019-06-09 08:47:51 Walker Hudson odist ENDOTRACHEAL AIRWAY Devang Oconnell POC PANEL 4 2019-06-09 07:31:00 Sudhir Portillo odist Portillo-Hsi TYPE AND SCREEN 2019-06-09 07:20:00 Walker Hudson odist Devang Oconnell BASIC METABOLIC PANEL 2019-06-09 07:20:00 Denia Hudson. HC COMPLETE BLD COUNT 2019-06-09 07:20:00 Denia Hudson W/AUTO DIFF Devang Oconnell PROTHROMBIN TIME WITH INR 2019-06-09 07:20:00 Lauri Hudson PARTIAL THROMBOPLASTIN 2019-06-09 07:20:00 Savanah Hudson TIME (PTT) Devang Tapia. ESTIMATED GFR 2019-06-09 07:20:00 Walker Hudson OR [place] < 1 HOUR 2019-05-22 16:00:00 Sudhir Portillo odist Portillo-Hsi MD AN ELECTIVE 2019-05-22 12:36:00 Magdalene Smith ethodist SUPRAGLOTTIC AIRWAY POC PANEL 4 2019-05-22 11:55:00 Sudhir Portillo odist Portillo-Hsi TYPE AND SCREEN 2019-05-22 11:50:00 Walker [place] odist Devang Oconnell BASIC METABOLIC PANEL 2019-05-22 11:50:00 Denia Hudson. HC COMPLETE BLD COUNT 2019-05-22 11:50:00 Denia Hudson W/AUTO DIFF Devang Oconnell PROTHROMBIN TIME WITH INR 2019-05-22 11:50:00 Lauri Hudson J. PARTIAL THROMBOPLASTIN 2019-05-22 11:50:00 Savanah Hudson on Buddhism TIME (PTT) Devang Oconnell ESTIMATED GFR 2019-05-22 11:50:00 Walker Hudson OR [place] < 1 HOUR 2019-04-21 10:15:18 BandarSudhir Meth odist Portillo-Hsi POC PANEL 4 2019-04-21 07:09:00 PortilloSudhir Meth odist Portillo-Hsi TYPE AND SCREEN 2019-04-21 07:03:00 Walker Hudson BASIC METABOLIC PANEL 2019-04-21 07:03:00 Denia Hudson. HC COMPLETE BLD COUNT 2019-04-21 07:03:00 Denia Hudson W/AUTO DIFF Devang Oconnell PROTHROMBIN TIME WITH INR 2019-04-21 07:03:00 Lauri Hudson PARTIAL THROMBOPLASTIN 2019-04-21 07:03:00 Savanah Hudson Buddhism TIME (PTT) Devang Oconnell ESTIMATED GFR 2019-04-21 07:03:00 Walker Hudson MD AN ELECTIVE 2019-03-31 15:45:48 Maya Mata Ca thodist SUPRAGLOTTIC AIRWAY POC PANEL 4 2019-03-31 10:41:00 BandarSudhir Meth odist Portillo-Hsi BASIC METABOLIC PANEL 2019-03-31 10:36:00 Denia Hudson. TYPE AND SCREEN 2019-03-31 10:36:00 Walker Hudson odist Devang Oconnell ESTIMATED GFR 2019-03-31 10:36:00 Walker Hudson OR FL < 1 HOUR 2019-03-24 10:05:15 Sudhir Portillo-Hsperez ECG 12-LEAD 2019-03-24 07:26:11 Walker Hudson odtrey Devang Tapia. POC PANEL 4 2019-03-24 07:25:00 Sudhir Portillo odtrey Portillo-Hsi TYPE AND SCREEN 2019-03-24 07:18:00 Walker Hudson odtrye Devang Oconnell BASIC METABOLIC PANEL 2019-03-24 07:18:00 Denia Hudson HC COMPLETE BLD COUNT 2019-03-24 07:18:00 Denia Hudson W/AUTO DIFF Devang Oconnell PROTHROMBIN TIME WITH INR 2019-03-24 07:18:00 Lauri Hudson PARTIAL THROMBOPLASTIN 2019-03-24 07:18:00 Savanah Hudson Buddhism TIME (PTT) Devang Oconnell ESTIMATED GFR 2019-03-24 07:18:00 Walker Hudson. XR CHEST 1 VW PORTABLE 2019-03-24 06:48:06 Savanah Hudson on Gilbert Oconnell HEMOGLOBIN & HEMATOCRIT 2018-11-29 05:00:00 Blake Shields BASIC METABOLIC PANEL 2018-11-29 04:00:00 Leah Shields ESTIMATED GFR 2018-11-29 04:00:00 Leah Shields. HEPATITIS B SURFACE 2018-11-28 22:08:00 Kaur Holt ston Buddhism ANTIGEN CV TUNNELED CATHETER 2018-11-28 19:18:00 Edilberto Saba on Buddhism INSERTION CV VENOGRAPHY EXTREMITY 2018-11-28 19:18:00 Edilberto Saba BILATERAL CV INJECTION FOR 2018-11-28 19:18:00 Edilberto Saba ethodist VENOGRAPHY VENA CAVA FILTER 2018-11-28 19:18:00 Edilberto Sbaa ethodist INSERTION CV VENOGRAPHY SUPERIOR 2018-11-28 19:18:00 Edilberto Saba Buddhism VENA CAVA HEPATITIS B SURFACE 2018-11-28 12:15:00 Kaur Holt Naveen newell Buddhism ANTIGEN TTE COMPLETE, WO 2018-11-28 12:00:00 Leah Shields on Buddhism CONTRAST, W DOPPLER N. ([id number]) HC COMPLETE BLD COUNT 2018-11-28 04:45:00 Ming Mayfield Buddhism W/AUTO DIFF TYPE AND SCREEN 2018-11-28 04:45:00 Ming Mayfield ethodist BASIC METABOLIC PANEL 2018-11-28 04:00:00 Leah Shields Buddhism N. FERRITIN LEVEL 2018-11-28 04:00:00 Leah Shields Buddhism N. FOLATE LEVEL 2018-11-28 04:00:00 Leah Shields Buddhism N. TOTAL IRON BINDING 2018-11-28 04:00:00 Leah Shields Buddhism CAPACITY N. VITAMIN B12 LEVEL 2018-11-28 04:00:00 Leah Shields Buddhism N. THYROID STIMULATING 2018-11-28 04:00:00 Leah Shields Buddhism HORMONE N. ESTIMATED GFR 2018-11-28 04:00:00 Leah Shields Buddhism N. ECG 12-LEAD 2018-11-27 18:57:52 Leah Shields Buddhism N. HC COMPLETE BLD COUNT 2018-11-27 13:15:00 Leah Shields Buddhism W/AUTO DIFF N. COMPREHENSIVE METABOLIC 2018-11-27 13:15:00 Blake Shields Buddhism PANEL N. MAGNESIUM LEVEL 2018-11-27 13:15:00 Leah Shields Buddhism N. PARTIAL THROMBOPLASTIN 2018-11-27 13:15:00 Leah Shields Buddhism TIME (PTT) N. PHOSPHORUS LEVEL 2018-11-27 13:15:00 Leah Shields Buddhism N. ESTIMATED GFR 2018-11-27 13:15:00 Leah Shields Buddhism N. PROTHROMBIN TIME WITH INR 2018-11-27 13:15:00 Carol Shields Buddhism N. Plan of Care Planned Activity Planned Date Details Comments Source Future Scheduled 2019-10-17 INFLUENZA VACCINE Johnto grant Buddhism Test 00:00:00 [code = INFLUENZA VACCINE] Future Scheduled 2010 65+ PNEUMOCOCCAL Walker Buddhism Test 00:00:00 VACCINE (1 of 2 - PCV13) [code = 65+ PNEUMOCOCCAL VACCINE (1 of 2 - PCV13)] Future Scheduled 1995-12-05 COLONOSCOPY SCREENING Ho joseph Buddhism Test 00:00:00 [code = COLONOSCOPY SCREENING] Future Scheduled 1995-12-05 SHINGLES VACCINES (#1) H froylan Buddhism Test 00:00:00 [code = SHINGLES VACCINES (#1)] Encounters Start End Encounter Admission Attending Care Care Encounter Source Date/Time Date/Time Type Type Clinicians Facility Department ID 2019-06-25 2019-06-25 [facility] [id number] 226 [place] 00:00:00 00:00:[address] 2019-06-09 2019-06-09 [id number] [place] 00:00:00 00:00:00 SUDHIR [address] 2019-06-05 2019-06-08 [facility] [id number] 478 [place] 00:00:00 00:00:00 SUDHIR [address] 2019-05-22 2019-05-22 [id number] [place] 00:00:00 00:00:00 SUDHIR [address] 2019-05-21 2019-05-21 [facility] [id number] 230 [place] 00:00:00 00:00:00 SUDHIR [address] 2019-04-21 2019-04-21 [id number] 443 [place] 00:00:00 00:00:00 SUDHIR 367 Method i 2019-03-31 2019-04-01 Outpatient SARITHA [facility] [id number] [place] 00:00:00 00:00:00 FANTA 170 Method i 2019-03-24 2019-03-24 Outpatient BANDAR [facility] [id number] 508 [place] 00:00:00 00:00:00 SUDHIR 042 Method i 2019-02-24 2019-02-24 Outpatient BANDAR [facility] [id number] 611 [place] 00:00:00 00:00:00 SUDHIR 192 Method i 2018-11-27 2018-11-29 Inpatient ALYSON [facility] [id number] [place] 00:00:00 00:00:00 CHINONYEREM 928 [facility] Results Test Description Test Time Test Comments Results Result Comments Source Partial thromboplastin time, activated 2019-06-09 09:22:49 Test Item Value Reference Range Interpretation Comme nts PTT (test code = 3173-2) >250.0 23.0- 36.0 sec HH P TT therapeutic range for unfractionated heparin is61.0-112.0 se conds which corresponds to Anti-Xa0.3-0.7 U/ml. Lab Interpretation (test code Abnormal = 42485-7) [place] [id number] 08:47:51WDevang hernandez MD 06/09/2019 8:48 AMAirwayDate/Time: 06/09/2019 8:47 AMPerformed by:Devang Hudson MDAuthorized by: Devang Hudson MD Location: ORUrgency: ElectiveDifficult Airway: No Anesthesiologist: Devang Hudson MDResident/BOAT OFFICER/AA: Carmen Hart CRNAPerformed by: resident/BOAT OFFICER/AAPreoxygenated with 100% O2: Yes C-spine Precautions Maintained Throughout: Yes Mask Ventilation: Easy maskFinal Airway Type: Endotracheal airwayFinal Endotracheal Airway: ETTCuffed: Yes Technique Used: Direct laryngoscopyDevices/Methods Used in Placement: Intubating styletInsertion Site: OralBlade Type: MillerLaryngoscope Blade/Videolaryngoscope Blade Size: 2ETT Size (mm): 8.0Cuff at minimum occlusion pressure: Yes Measured from: LipsETT to Lips (cm): 24Placement Verified by: CO2 detection, direct visualization and equal breath soundsLaryngoscopic view: Grade I - full view of glottisRapid Sequence Induction (RSI): No Modified RSI:No Number of Attempts at Approach: 1[facility] MethodistProthrombin time with [id number] 08:34:38 Test Item Value Reference Range Interpretation Comments Prothrombin time (test 14.3 11.5- 14.5 sec code = 5902-2) INR (test code = 1.1 [facility] 43[facility]-7) Normalized Rati o (INR) is a therapeutic m onitoring tool for patien ts who are stable on oral anticoagulant t herapy. An INR of 2.0-3.0 is suggested for d eep vein thrombosis/pulm onary embolism. Walker MethodistType and [id number] 08:22:00 Test Item Value Reference Range Interpretation Comments ABO grouping (test code = 883-9) O Rh type (test code = 67623-7) POS Antibody screen (gel) (test code = NEG 890-4) Walker MethodistBasic metabolic [id number] 08:12:05 Test Item Value Reference Range Interpretation Comments Sodium (test code = 2951-2) 133 135- 148 mEq/L L Potassium (test code = 2823-3) 4.4 3.5- 5.0 mEq/L Chloride (test code = 2075-0) 92 98- 112 mEq/L L CO2 (test code = 8-9) 25 24- 31 mEq/L Anion gap (test code = 52348-7) 16@ANIO 7- 15 mEq/L H BUN (test code = 3094-0) 33 mg/dL 8-23 H Creatinine (test code = 2160-0) 8.05 mg/dL 0.7-1.2 H Glucose (test code = 2345-7) 86 mg/dL 65-99 Calcium (test code = 17544-5) 9.3 mg/dL 8.8-10.2 Lab Interpretation (test code = Abnormal 43391-9) Walker MethodistEstimated [id number] 08:12:05 Test Item Value Reference Range Interpretation Comments Estimated GFR (test 6 mL/min/1.73 m2 Hernandez you Units code = 5488) InterpretationG 1 >=90 Yessica l or highG2 60-89 Mildly decrease dG3a 45-59 Mil dly to moderately decr umimuL3l 30-44 Moderately to s everely decreasedG4 15-29 Severe ly decreasedG5 <15 Kidney sandra lureThe eGFR was calcul ated using the Chron Kidney Disease Epidemiology Collaboration ( CKD-EPI) equation. Interpretation is based on recommendati ons of the National [facility]-Kidn ey Disease Outcome s Quality Initiat brent (NKF-KDOQI) pub lished in 2013. Lab Interpretation Abnormal (test code = 12876-5) Walker MethodistCBC with platelet and [id number] 08:11:19 Test Item Value Reference Range Interpretation Comments WBC (test code = 47367-0) 7.9 4.5- 11.0 k/uL RBC (test code = 61184-1) 3.35 m/uL 4.4-6 L HGB (test code = 718-7) 10.2 g/dL 14-18 L HCT (test code = 4544-3) 32.6 % 41-51 L MCV (test code = 787-2) 97.3 fL 82-100 MCH (test code = 785-6) 30.4 pg 27-34 MCHC (test code = 786-4) 31.3 g/dL 31-37 RDW - SD (test code = 83845-1) 52.1 fL 37-55 MPV (test code = 17655-8) 11.4 fL 6.9-11 H Platelet count (test code = 179 K/uL 150-400 74155-5) Nucleated RBC (test code = 13226-7) 0.00 /100 WBC Neutrophils (test code = 17582-4) 70.2 % 39-69 H Lymphocytes (test code = 05590-5) 18.7 % 25-45 L Monocytes (test code = 51598-2) 7.7 % 0-10 Eosinophils (test code = 23956-1) 2.0 % 0-5 Basophils (test code = 95026-9) 1.0 % 0-1 Immature granulocytes (test code = 0.4 % 0-1 95179-0) Lab Interpretation (test code = Abnormal 80011-5) [facility] MethodistPOC panel [id number] 07:34:01 Test Item Value Reference Range Interpretation Comments POC sodium (test code = 135 mmol/L 566-753 1645-0) POC potassium (test 4.2 mmol/L 3.5-5 code = 6298-4) POC hematocrit (test 33 % 41-51 L code = 4544-3) POC glucose (test code 82 mg/dL 65-99 Opera tor Name: Lauri = 2339-0) LauraDevice ID: [id number] POC hemoglobin (test 11.2 g/dL 14-18 L code = 718-7) Lab Interpretation Abnormal (test code = 55567-5) [facility] MethodistOR [place] < 1 [id number] 14:35:51Hm Interface, Radiology Results - 05/27/2019 2:38 PM CDTEXAMINATION: OR [place] < 1 HOURC-arm fluoroscopy was requested in OR. IMPRESSION:Separate operative report will be issued by the physician performing the procedure.[id number] [facility] [id number] 12:36:00Magdalene Smith CRNA 05/22/2019 12:36 PMAirwayDate/Time: 05/22/2019 12:36 PMPerformed by: Magdalene Smith CRNAAuthorized by: Devang Hudson MD Location: ORUrgency: ElectiveDifficult Airway: No Anesthesiologist: Devang Hudson MDResident/MINAL/AA: Magdalene Smith CRNAPerformed by: resident/MINAL/AAPreoxygenated with 100% O2: Yes C-spine Precautions Maintained Throughout: Yes Mask Ventilation: Easy maskFinal Airway Type: Supraglottic airwayFinal LMA: I-GelLMA Size: 5Number of Attempts at Approach: froylan UsoztadydOlqdcq6488-97-25 15:45:48Maya Mata CRNA 03/31/2019 4:17 PMAirwayDate/Time: 03/31/2019 3:45 PMPerformed by: Maya Mata CRNAAuthorized by: Devang Hudson MD Location: ORUrgency: ElectiveDifficult Airway: No Anesthesiologist: Devang Hudson, JOANNEesident/BOAT OFFICER/AA: Maya Mata CRNAPerformed by: resident/BOAT OFFICER/AAPreoxygenated with 100% O2: Yes C-spine Precautions Maintained Throughout: Yes Mask Ventilation: Not attemptedFinal Airway Type: Supraglottic airwayFinal LMA:I-GelLMA Size: 5Number of Attempts at Approach: 1 [facility] MethodistECG 12 [id number] 07:47:27 Test Item Value Reference Range Interpretation Comments Ventricular rate (test 58 code = 253) Atrial rate (test code 58 = 255) MD interval (test code 262 = 266) QRSD interval (test 86 code = 260) QT interval (test code 448 = 264) QTC interval (test code 439 = 265) P axis 1 (test code = 71 267) QRS axis 1 (test code = -56 268) T wave axis (test code 83 = 270) EKG impression (test Sinus bradycardia with code = 273) 1st degree AV block-Left axis deviation-Inferior infarct (cited on or before 24-DEC-2013)-Anterosep ashkan infarct (cited on or before 02-NOV-2011)-Abnormal ECG-In automated comparison with ECG of 27-NOV-2018 18:57,-No significant change was found- Walker MethodistXR Chest 1 Vw [id number] 07:06:35Hm Interface, Radiology Results Incoming - 03/24/2019 7:09 AM CSTEXAMINATION: XR CHEST 1 VW PORTABLECLINICAL HISTORY: Pre-OpCOMPARISON: December 24, 2013IMPRESSION:Interval removal of the IVC dialysis catheter. Interval insertion of a right internal jugular HD catheter, the tips overlying the distalsuperior vena cava and cavoatrial junction.Heart is upper limits of normal in size similar to before. Aorta is tortuous and diffuse atherosclerotic calcifications have increased compared to prior.Bilateral basilar predominant interstitial and ground-glass opacities are nonspecific and may be due to mild edema, pneumonitis, or fibrosis.Small loculated left pleural effusion and mild left pleural calcifi cation. No pneumothorax.No acute or suspicious osseous lesion is identified. A vascular stent is partially imaged within the medial soft tissues of the right upper extremity. Peripheral arterial calcifications are also present. [facility]-[id number] MethodistCath lab [id number] 18:44:36Pascual Laguna MD - 02/10/2019 1:27 PM [facility] FishistCv invasive peripheral vascular [id number] 18:44:36Pascual Laguna MD - 02/10/2019 1:27 PM [facility] PolinaistHemoglobin & [id number] 05:46:08 Test Item Value Reference Range Interpretation Comments HGB (test code = 718-7) 7.9 g/dL 14-18 L HCT (test code = 4544-3) 25.2 % 41-51 L Lab Interpretation (test code = Abnormal 20750-2) [place] MethodistHepatitis B surface [id number] 23:29:50 Test Item Value Reference Range Interpretation Comments Hepatitis B surface Ag (test Non-reactive Non-reactive code = 5195-3) [place] MethodistEchocardiogram complete w contrast and 3D if [id number] 14:40:00Interface, Radiology Results In - 11/28/2018 2:40 PM CDT Echocardiography Report [address] [place] [address] Pat.Name: MILDRED CAMACHO Pat.ID: [id number].Date: 11/28/2018 Refer.MD: LEAH SHIELDS MDExam Time: 10:39:00 AM Study Type:Routine Echo Height: 68in Weight: 159lb BSA: 1.86 m2 Age: 9 1945,72Y Sex: MALE BP: 175/71 HR: 68 bpm Sonogrphr: Katty Perez RDCS Pat. Stat.:Inpatient Room: 829 Study Status:Final Echo Event ID:[id number] Order ID: [id number] Reason for Study:HTN History / Clinical:Arrhythmias, Chronic Renal Failure, Dizziness,Edema, Hypertension, Smoker 2ppdProcedures:2D Echo, Colorflow Doppler, StrainRace: White SUMMARY: LV size is normal. There is mild concentric LV hypertrophy. LV EF is normal. Estimated PA systolic pressure is 40 mmHg, assuming a mean RAP of 5mmHg. FINDINGS: -------LV: LV size is normal. There is mild concentric LV hypertrophy. LV EF is normal. Overall wall motion is normal.RV: RV size is normal. RV systolic function is normal.LA: LA volume is severely enlarged.RA: RA size is normal.AO: Aortic root diameter is mildly enlarged.KAMINI: No pericardial effusion.AV: Mild thickening and calcification of AV leaflets. Mild aortic regurgitation.MV: Mild thickening and calcification of mitral leaflets. Mild mitral annular calcification. Mild mitral regurgitation.PV: No structural PV abnormalities noted. A trace of pulmonic regurgitation. TV: No structural TV abnormalit ies noted.Aquino: Diastolic dysfunction Grade II (Moderate): Impaired relaxation with elevated LV filling pressures.Other: Estimated PA systolic pressure is 40 mmHg, assuming a mean RAP of 5 mmHg. MEASUREMENTS: 2DParasternal [place] LVOT 2 cm LVPWd 1.3 cm LVIDd 5 cm Index 2.7 cm/m2 LA Ds 4.5 cm LVIDs 3.3 cm Ao An 2.3 cm LV%fs 34.6 % Ao Rtd 4 cm Index 2.2 cm/m2 IVSd 1.3 cm RWT 0.4 LA Sng Plane LA Area 29.2 cm2 (8.8-23.4) LA Vol 105.9 ml Index 56.9 ml/m2 LA LngAx 6.6 cm DOPPLERLVOT Stroke Vol LVOT 2 cm LVOT CO 0.5 l/min LVOT TVI 2.8 cm LVOT CI 0.3 l/m/m2 LVOT Tm 386 msec HR 60 bpm LVOT SV 8.8 ml Signed 11/28/2018 02:40 Alejandra Carey MethodistVitamin B12 [id number] 05:41:01 Test Item Value Reference Range Interpretation Comments Vitamin B12 (test 494 pg/mL 211-946 Significan t overlap code = 2132-9) exists betwee n normal and deficiency states.However, most patients with deficiencies wi ll have Serum B12 <2 00 pg/mL. [place] [facility]olate [id number] 05:41:01 Test Item Value Reference Range Interpretation Comments Folate (test code = 2284-8) 7.7 ng/mL 4.8-24.2 [place] MethodistTotal iron binding [id number] 05:33:53 Test Item Value Reference Range Interpretation Comments Iron level (test code = 2498-4) 65 ug/dL 59-158 Iron binding capacity (test code = 210 ug/dL 703-567 4802-7) % Saturation (test code = 2502-3) 31.0 % 20-40 [place] MethodistThyroid stimulating [id number] 05:32:30 Test Item Value Reference Range Interpretation Comments TSH (test code = 3016-3) 3.88 0.27- 4.20 uIU/mL [place] MethodistFerritin [id number] 05:29:49 Test Item Value Reference Range Interpretation Comments Ferritin level (test code = 1376 ng/mL 30-400 H 2276-4) Lab Interpretation (test code = Abnormal 79697-0) [place] MethodistComprehensive metabolic [id number] 14:13:22 Test Item Value Reference Range Interpretation Comments Sodium (test code = 137 135- 148 mEq/L 2951-2) Potassium (test code = 5.5 3.5- 5.0 mEq/L H 2823-3) Chloride (test code = 93 98- 112 mEq/L L 5-0) CO2 (test code = 2027-9) 25 24- 31 mEq/L Anion gap (test code = 19@ANIO 7- 15 mEq/L H 65013-7) BUN (test code = 3094-0) 101 mg/dL 8-23 H Creatinine (test code = 15.37 mg/dL 0.7-1.2 H 2160-0) Glucose (test code = 153 mg/dL 65-99 H 2345-7) Calcium (test code = 10.6 mg/dL 8.8-10.2 H 33207-4) Protein (test code = 7.1 g/dL 6.3-8.3 [place] 2885-2) 4.6-7.0 g/dL 1 week 4.4-7.6 g/dL7 months-1year 5.1-7.3 g/dL 1-2 years 5.6-7.5 g/dL>3 years 6.0-8.0 g/dL18- 150 6.3-8.3 g/dL Albumin (test code = 3.4 g/dL 3.5-5 L 175-7) A/G ratio (test code = 0.9 0.7-3.8 175-0) Alkaline phosphatase 155 U/L 40-129 H (test code = 6768-6) AST (test code = 1920-8) 12 U/L 10-50 ALT (test code = 1742-6) 9 U/L 5-50 Total bilirubin (test 0.3 mg/dL 0-1.2 code = 1974-2) Lab Interpretation (test Abnormal code = 71945-9) [place] MethodistMagnesium [id number] 14:13:22 Test Item Value Reference Range Interpretation Comments Magnesium (test code = 89303-3) 2.2 mg/dL 1.6-2.4 [place] MethodistPhosphorus [id number] 14:07:44 Test Item Value Reference Range Interpretation Comments Phosphorus (test code = 2777-1) 6.0 mg/dL 2.4-4.5 H Lab Interpretation (test code = Abnormal 32957-9) Walker Hunt
[2019-09-03 22:04] LABS: Absolute Lymphocytes (CBC) 1.1 K/uL (0.7-4.9); Basophils % 0.9 % (0-1.3); Hematocrit 38.7 % (39.6-49.0); Lymphocytes % 10.5 % (15.3-44.8); MPV 9.2 fL (7.6-11.3); RBC Red Blood Cell Count 4.08 M/uL (4.33-5.43)
[2019-09-03 22:10] LABS: Protime INR 1.01
[2019-09-03 22:42] LABS: ALT/SGPT 10 U/L (12-78); AST/SGOT 9 U/L (15-37); Albumin 3.5 g/dL (3.4-5.0); Alkaline Phosphatase 194 U/L (45-117); BUN Blood Urea Nitrogen 77 mg/dL (7-18); Bicarbonate 23 mmol/L (21-32); Bilirubin Direct 0.2 mg/dL (0-0.2); Bilirubin Total 0.6 mg/dL (0.2-1.0); Glucose Level 130 mg/dL (74-106); Magnesium 2.5 mg/dL (1.8-2.4); NT PRO-BNP 148087 pg/mL (<125); Protein, Total 7.7 g/dL (6.4-8.2); Sodium Level 134 mmol/L (136-145); Troponin (Emerg Dept Use Only) < 0.02 ng/mL (0.0-0.045)
[2019-09-03 22:44] LABS: Potassium 6.4 mmol/L (3.5-5.1)
--- NOTE | 2019-09-03 23:00 | ER ---
Nurse's Notes [facility] Name: Rosales Sandoval Age: 73 yrs Sex: Male : 1945 Arrival Date: 09/03/2019 Time: 21:38 Bed 2 Private MD: Diagnosis: Hyperkalemia;Acute pulmonary edema;Chronic kidney disease, stage 5 Presentation: 09/02 21:22 Chief complaint: EMS states: that pt is having shortness of breath x 2 days. Missed fc dialysis on Saturday, on Sat only did one hr. Also having left lower abd pain that is relieved by bowel movement or passing gas. Dialysis cath is on right shoulder. Coronavirus screen: Patient reports a cough. Patient reports shortness of breath or difficulty breathing. Patient denies measured and/or subjective temperature greater than 100.4F prior to today's visit. Patient denies travel on a cruise ship or to a country the [facility] currently lists as an affected area. Patient denies contact with known and/or suspected case of COVID-19. Ebola Screen: Patient negative for fever greater than or equal to 101.5 degrees Fahrenheit, and additional compatible Ebola Virus Disease symptoms Patient denies exposure to infectious person. Patient denies travel to an Ebola-affected area in the 21 days before illness onset. Initial Sepsis Screen: Does the patient meet any 2 criteria?. Initial Sepsis Screen: Does the patient meet any 2 criteria? RR > 20 per min. No. Patient's initial sepsis screen is negative. Does the patient have a suspected source of infection? No. Patient's initial sepsis screen is negative. Risk Assessment: Do you want to hurt yourself or someone else? Patient reports no desire to harm self or others. Onset of symptoms was September 01, 2019. Care prior to arrival: Medication(s) given: Albuterol Neb x 1, Atrovent Neb x 1. Transition of care: patient was not received from another setting of care. 21:22 Method Of Arrival: EMS: [facility] 21:22 Acuity: CASSIDY 2 fc Historical: - Allergies: 21:49 Teramycin; fc 21:49 blood thinners; fc - Home Meds: 21:49 alprazolam 0.5 mg Oral tab 1 tab twice a day [Active]; metoprolol tartrate 25 mg Oral fc tab 3 tabs 2 times per day [Active]; nifedipine 30 mg Oral tr24 1 tab twice a day [Active]; terazosin 5 mg oral cap 1 cap daily as needed [Active]; - PMHx: 21:49 ESRD; Hypertension; Pancreatitis; fc - PSHx: 21:49 Appendectomy; Cholecystectomy; Right Femoral Catheter for Dialysis; Right side kidney fc removed; - Immunization history:: Last tetanus immunization: up to date Flu vaccine is up to date. - Social history:: Smoking status: Patient reports the use of cigarette tobacco products, smokes one pack cigarettes per day. Patient uses alcohol, but reports only rare drinking. Patient/guardian denies using street drugs, IV drugs. Screenin:22 Abuse screen: Denies threats or abuse. Nutritional screening: No deficits noted. fc Tuberculosis screening: No symptoms or risk factors identified. Fall Risk None identified. Assessment: 22:10 General: Appears in no apparent distress. Behavior is appropriate for age. Pain: Denies ea pain. Neuro: Level of Consciousness is awake, alert, obeys commands, Oriented to person, place, situation. Cardiovascular: Patient's skin is warm and dry. Respiratory: Airway is patent Respiratory effort is even, unlabored. Derm: Skin is dry, Skin is pale, Skin temperature is warm. 22:44 Reassessment: mich from laboratory called K 6.4 and creatinine of 14.6. ED provider rr5 aware. 22:59 Reassessment: Pt states he is ready to go home "I don't want to be here anymore, I feel ea fine" states " I don't want him to wait here all night, we have an appointment for dialysis in the morning, we rather go home" Provider notified. Provider at bedside explaining possible risk with leaving AMA. Pt verbalized the understanding. Vital Signs: 21:22 BP 212 / 78; Pulse 77; Resp 22; Temp 98.4(TE); Pulse Ox 89% on R/A; Weight 79 kg (R); fc Height 5 ft. 8 in. (172.72 cm) (R); Pain 9/10; 22:11 BP 176 / 83; Pulse 72; Resp 20; Pulse Ox 97% ; ea 23:04 BP 176 / 83; Pulse 70; Resp 18; Pulse Ox 96% ; ea 21:22 Body Mass Index 26.48 (79.00 kg, 172.72 cm) ED Course: 21:22 Arm band placed on Patient placed in an exam room, on a stretcher. fc 21:22 Patient has correct armband on for positive identification. Bed in low position. Call light in reach. Side rails up X2. laboratory monitor on. Pulse ox on. NIBP on. 21:22 No provider procedures requiring assistance completed. fc 21:35 EKG done, by ED staff, reviewed by Martín Cordova MD. rr5 21:38 Patient arrived in ED. fc 21:40 Inserted saline lock: 20 gauge in right forearm, using aseptic technique. Blood rr5 collected. 21:45 Triage completed. fc 21:46 Martín Cordova MD is Attending Physician. tw4 21:59 XRAY Chest (1 view) In Process Unspecified. EDMS 22:10 Gema Blount, RN is Primary Nurse. ea 22:59 Leonel Meng DO is Referral Physician. tw4 23:04 IV discontinued, intact, bleeding controlled, No redness/swelling at site. Pressure ea dressing applied. Administered Medications: No medications were administered Outcome: 23:04 AMA AMA form signed ea 23:09 Patient left the ED. ea Signatures: Dispatcher [employer] EDCO Helen Arndt RN ABHILASH Gema Blount, RN Martín Acuna ea, MD MD tw4 Luis Wells RN RN rr5
--- NOTE | 2019-09-03 23:00 | EDPHYS ---
Physician Documentation [facility] Name: Rosales Sandoval Age: 73 yrs Sex: Male : 1945 Arrival Date: 09/03/2019 Time: 21:38 Bed 2 Private MD: ED Physician Martín Cordova HPI: 09/03 05:34 This 73 yrs old Male presents to ER via EMS with complaints of Shortness Of tw4 Breath, Abd Pain > 50 y/o. 05:34 The patient has shortness of breath at rest. Onset: The symptoms/episode began/occurred tw4 yesterday. Duration: The symptoms are continuous, and are unchanged since they started. The patient's shortness of breath has no apparent modifying factors. Associated signs and symptoms: Pertinent negatives: chest pain, non-productive cough, productive cough, fever. Severity of symptoms: At their worst the symptoms were moderate in the emergency department the symptoms are unchanged. The patient has experienced similar episodes in the past, several times. pt has missed his dialysis for one week. Historical: - Allergies: 09/02 21:49 Teramycin; fc 21:49 blood thinners; fc - Home Meds: 21:49 alprazolam 0.5 mg Oral tab 1 tab twice a day [Active]; metoprolol tartrate 25 mg Oral fc tab 3 tabs 2 times per day [Active]; nifedipine 30 mg Oral tr24 1 tab twice a day [Active]; terazosin 5 mg oral cap 1 cap daily as needed [Active]; - PMHx: 21:49 ESRD; Hypertension; Pancreatitis; fc - PSHx: 21:49 Appendectomy; Cholecystectomy; Right Femoral Catheter for Dialysis; Right side kidney fc removed; - Immunization history:: Last tetanus immunization: up to date Flu vaccine is up to date. - Social history:: Smoking status: Patient reports the use of cigarette tobacco products, smokes one pack cigarettes per day. Patient uses alcohol, but reports only rare drinking. Patient/guardian denies using street drugs, IV drugs. ROS: 09/03 05:34 Constitutional: Negative for fever, chills, and weight loss, Eyes: Negative for injury, tw4 pain, redness, and discharge, Neck: Negative for injury, pain, and swelling, Cardiovascular: Negative for chest pain, palpitations, and edema, Abdomen/GI: Negative for abdominal pain, nausea, vomiting, diarrhea, and constipation, Back: Negative for injury and pain, MS/Extremity: Negative for injury and deformity, Skin: Negative for injury, rash, and discoloration, Neuro: Negative for headache, weakness, numbness, tingling, and seizure. Respiratory: Positive for shortness of breath, Negative for cough, dyspnea on exertion, hemoptysis, orthopnea, pleurisy, sputum production, wheezing. Exam: 05:34 Constitutional: This is a well developed, well nourished patient who is awake, alert, tw4 and in no acute distress. Head/Face: Normocephalic, atraumatic. Chest/axilla: Normal chest wall appearance and motion. Nontender with no deformity. No lesions are appreciated. Cardiovascular: Regular rate and rhythm with a normal S1 and S2. No gallops, murmurs, or rubs. Normal PMI, no JVD. No pulse deficits. 05:34 Abdomen/GI: Soft, non-tender, with normal bowel sounds. No distension or tympany. No guarding or rebound. No evidence of tenderness throughout. Back: No spinal tenderness. No costovertebral tenderness. Full range of motion. MS/ Extremity: Pulses equal, no cyanosis. Neurovascular intact. Full, normal range of motion. Neuro: Awake and alert, GCS 15, oriented to person, place, time, and situation. Cranial nerves II-XII grossly intact. Motor strength 5/5 in all extremities. Sensory grossly intact. Cerebellar exam normal. Normal gait. 05:34 Respiratory: mild respiratory distress is noted, Respirations: labored breathing, that is mild, Breath sounds: rales, are located in both bases. Vital Signs: 09/02 21:22 BP 212 / 78; Pulse 77; Resp 22; Temp 98.4(TE); Pulse Ox 89% on R/A; Weight 79 kg (R); fc Height 5 ft. 8 in. (172.72 cm) (R); Pain 9/10; 22:11 BP 176 / 83; Pulse 72; Resp 20; Pulse Ox 97% ; ea 23:04 BP 176 / 83; Pulse 70; Resp 18; Pulse Ox 96% ; ea 21:22 Body Mass Index 26.48 (79.00 kg, 172.72 cm) fc MDM: 21:46 Patient medically screened. tw4 06/19 05:38 Differential diagnosis: Anemia pneumonia, Pneumothorax pulmonary edema, Pulmonary tw4 Embolism reactive airway disease, Sepsis. Antibiotic administration: Not indicated. Data reviewed: vital signs, nurses notes. Data interpreted: Pulse oximetry: Interpretation: hypoxia. Plan: O2 by NC applied. Counseling: I had a detailed discussion with the patient and/or guardian regarding: the historical points, exam findings, and any diagnostic results supporting the discharge/admit diagnosis, lab results, radiology results. Refusal of service: The patient/guardian displays adequate decision making capability and despite a detailed discussion of alternatives, benefits, risks, and consequences refuses: Admission to the hospital for further work-up and treatment, Medications. 09/02 21:41 Order name: Basic Metabolic Panel; Complete Time: 22:54 [facility] 09/02 22:54 Interpretation: Normal except: NA 134; GLUC 130; BUN 77; CRE 14.60; K 6.4. [facility] 09/02 21:41 Order name: CBC with Diff; Complete Time: 22:07 [facility] 09/02 22:08 Interpretation: Normal except: RBC 4.08; HCT 38.7; HGB 12.6; LYM% 10.5; KM% 79.4; RDW tw4 16.9. 09/02 21:41 Order name: LFT's; Complete Time: 22:54 [facility] 09/02 22:54 Interpretation: Normal except: AST 9; ALT 10; ALK 194; GLOB 4.2; A/G 0.8. [facility] 09/02 21:41 Order name: Magnesium; Complete Time: 22:54 [facility] 09/02 22:54 Interpretation: Normal except: MG 2.5. 09/02 21:41 Order name: NT PRO-BNP; Complete Time: 22:54 09/02 22:54 Interpretation: Abnormal: NT PRO-BNP [id number]. 09/02 21:41 Order name: PT-INR; Complete Time: 22:54 [facility] 09/02 22:54 Interpretation: Within normal limits: PT 11.9. 09/02 21:41 Order name: Troponin (emerg Dept Use Only); Complete Time: 22:54 [facility] 09/02 22:54 Interpretation: Within normal limits: TROPED < 0.02. 09/02 21:41 Order name: XRAY Chest (1 view) rr5 09/02 21:41 Order name: EKG; Complete Time: 21:42 rr5 09/02 21:41 Order name: Cardiac monitoring; Complete Time: 21:52 rr5 09/02 21:41 Order name: EKG - Nurse/Tech; Complete Time: 21:52 rr5 09/02 21:41 Order name: IV Saline Lock; Complete Time: 21:42 rr5 09/02 21:41 Order name: Labs collected and sent; Complete Time: 21:42 rr5 09/02 21:41 Order name: O2 Per Protocol; Complete Time: 21:42 rr5 09/02 21:41 Order name: O2 Sat Monitoring; Complete Time: 21:42 rr5 EC:34 Rate is 77 beats/min. Rhythm is regular. WV interval is normal. QRS interval is normal. tw4 QT interval is normal. No Q waves. T waves are Peaked in leads II, III, aVF, V3, V4, V5. No ST changes noted. Clinical impression: NSR w/ Non-specific ST/T Changes and Suggests hyperkalemia. Interpreted by me. Reviewed by me. Administered Medications: No medications were administered Disposition: 09/03/19 22:59 Patient has left against medical advice. Impression: Hyperkalemia, Acute pulmonary edema, Chronic kidney disease, stage 5. - Patients states they are going to Home. - Condition is Serious. - Discharge Instructions: Hyperkalemia, Chronic Kidney Disease, Adult. Follow up: Private Physician; When: Upon discharge from the Emergency Department; Reason: Recheck today's complaints, Continuance of care, Re-evaluation by your physician. Follow up: Leonel Meng DO; When: Upon discharge from the Emergency Department; Reason: Recheck today's complaints, Continuance of care, Re-evaluation by your physician. - Problem is an ongoing problem. - Symptoms are unchanged. Signatures: Dispatcher [employer] EDMS Helen Arndt, RN RN Gema Irwin RN RN ea Wadley, Terrence, MD MD tw4 Luis Wells RN RN rr5 Corrections: (The following items were deleted from the chart) 09/02 23:09 22:59 09/03/2019 22:59 Patients has left against medical advice. Impression: ea Hyperkalemia; Acute pulmonary edema; Chronic kidney disease, stage 5. Patient states they are going to Home. Condition is Serious. Follow up: Private Physician; When: Upon discharge from the Emergency Department; Reason: Recheck today's complaints, Continuance of care, Re-evaluation by your physician. Follow up: Leonel Meng; When: Upon discharge from the Emergency Department; Reason: Recheck today's complaints, Continuance of care, Re-evaluation by your physician. Problem is an ongoing problem. Symptoms are unchanged. tw4
[2019-09-03 23:17] VITALS: BP 176/83
[2019-09-03 23:19] VITALS: O2SAT 96
--- NOTE | 2019-09-04 06:38 | EKG ---
Test Date: 2019-09-03 Test Time: 21:31:10 Workforce Development Vice President: TT MEASUREMENT RESULTS: Intervals: Rate: 77 AK: 282 QRSD: 94 QT: 388 QTc: 439 Moro: P: 69 AK: 282 QRS: -60 T: 94 INTERPRETIVE STATEMENTS: Sinus rhythm with 1st degree AV block with premature supraventricular complexes Left axis deviation Inferior infarct, age undetermined Anterior infarct, age undetermined Abnormal ECG Compared to ECG 04/06/2016 17:26:33 Atrial premature complex(es) now present Left-axis deviation now present Ventricular premature complex(es) no longer present Myocardial infarct finding still present Electronically Signed On 09-04-19 06:37:28 CDT by Larry Murguia
--- NOTE | 2019-09-04 07:46 | RAD REPORT ---
EXAM DESCRIPTION: RAD - Chest Single View - 09/03/2019 9:59 pm CLINICAL HISTORY: SOB COMPARISON: None TECHNIQUE: AP portable chest image was obtained 09/03/2019 9:59 pm . FINDINGS: Right-sided vascular access catheter is in place. No comparison imaging is available. Bila teral costophrenic angle blunting is present from pleural thickening or small pleural effusions. Inte rstitial markings are prominent throughout both lung rosa. There is some hazy airspace opacificatio n in the right base and more prominent airspace opacification in the mid and lower left lung field. C alcified plaquing is suspected at the left base. Heart size is normal. Vasculature is not outside of normal range. No pneumothorax. No acute bony abn ormality seen. Aortic calcifications are present without aneurysm. IMPRESSION: Baseline examination shows bilateral pleural and parenchymal abnormalities more prominen t in the lower left lung field. Most common etiology would be an asymmetric volume overload pattern given the history of missed dialy sis. Left greater than right pneumonia cannot be excluded on the basis of this examination.
== END 2019-09-03 23:09 | disposition left against medical advice (07) ==
LOC: ER 21:27
DX: E87.5 Hyperkalemia (principal); J81.0 Acute pulmonary edema; I12.0 Hypertensive chronic kidney disease with stage 5 chronic kidney disease or end stage renal disease; N18.5 Chronic kidney disease, stage 5; Z99.2 Dependence on renal dialysis; Z88.1 Allergy status to other antibiotic agents; Z88.8 Allergy status to other drugs, medicaments and biological substances; F17.210 Nicotine dependence, cigarettes, uncomplicated
CPT/HCPCS: 36415; 71045; 80048; 80076; 83735; 83880; 84484; 85025; 85610; 93005; 99284

== ENCOUNTER 2020-01-26 23:42 | Emergency (ER) | payer OTHER ==
--- OUTSIDE RECORDS SUMMARY | 2020-01-26 23:45 | XMS REPORT | Clinical Summary ---
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, R BCV mild stenosis 11/29/2018 Clotted dialysis access 11/27/2018 Encounters Date Type Specialty Care Team Description 07/09/2019 Telephone Cardiovascular Hope Adame 06/25/2019 Office Visit Cardiovascular Sudhir Portillo Encounter r egarding vascular access for dialysis for end-stage renal disease ([facility]) (Primary Dx); MD Jacky Steal syndrome [...] Portillo LEFT ARM MD Jacky ARTERIOVENOUS FISTULA LIGATION 06/09/2019 Hospital General Surgery Sudhir Portillo ESRD (end stage renal disease) ([facility]); Encounter MD Jacky 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, initial encounter ([facility]) 06/09/2019 Travel 06/08/2019 Telephone Cardiovascular Hope Adame 06/05/2019 Office Visit Cardiovascular Sudhir Portillo Encounter r egarding vascular access for dialysis for end-stage renal disease ([facility]) (Primary Dx); MD Jacky 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, subsequent encounter 06/05/2019 Prep for Surgery Cardiovascular Pham, ESRD (end stage renal disease) ([facility]) (Primary Dx); ABHILASH Griffith 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, initial encounter (HCC) 06/05/2019 Travel 06/02/2019 Travel 06/02/2019 Telephone Cardiovascular Gladis Pham RN 05/25/2019 Travel 05/25/2019 Telephone Cardiovascular Hope Adame 05/22/2019 Anesthesia Event General Surgery Devang Hudson MD Cheema, Ivelisse, FNP 05/22/2019 Surgery General Surgery Sudhir Portillo LEFT UPPER ARM MD Jacky FISTULAGRAM ,L EFT ARM ARTERIOVENOUS F ISTULA PSEUDOANEURYSM REPAIR, BALLOON ANGIOPLASTY AND STENTING OF THE LEFT ARM FISTULA 05/22/2019 [facility] General Surgery Sudhir Portillo ESRD (end stage renal disease) ([facility]); Encounter MD Jacky Pseudoaneurysm of arteriovenous dialysis fistula, initial encounter (HCC) 05/21/2019 Office Visit Cardiovascular Sudhir Portillo Encounter r egarding vascular access for dialysis for end-stage renal disease ([facility]) (Primary Dx); MD Jacky 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, initial encounter (HCC) 05/21/2019 Prep for Surgery Cardiovascular Ankit, ESRD (end stage renal disease) ([facility]) (Primary Dx); ABHILASH Griffith Pseudoaneurysm of arteriovenous dialysis fistula, initial encounter ([facility]) 05/05/2019 Office Visit Cardiovascular Connie De Leon Encounter re shakira Elias, [facility] vascular acce ss for dialysis for end-stage renal disease ([facility]) (Primary Dx) 04/23/2019 Telephone Cardiovascular Gladis Pham RN 04/21/2019 Surgery General Surgery Sudhir Portillo LEFT ARM MD Jacky ARTERIOVENOUS FISTULOGRAM WIT H THROMBECTOMY, ANGIOPLASTY BAL LOON AND STENTING 04/21/2019 Anesthesia Event General Surgery Dirk Pinzon MD Sardina, Maydee, GOSPEL WORKER 04/21/2019 [facility] Surgery Sudhir Portillo End stage renal disease on dialysis ([facility]); Encounter MD Jacky Clotted dialys is access, initial encounter ([facility]) 04/16/2019 Office Visit Cardiovascular Sudhir Portillo Encounter r egarding MD Jacky vascular access for Connie De Leon dialysis for Jada, [facility] end-stage myrna al disease ([facility]) (Primary Dx) 04/16/2019 Prep for Surgery Cardiovascular Ankit, End stage renal disease on dialysis ([facility]) (Primary Dx); ABHILASH Griffith Clotted dialysi s access, initial encounter ([facility]) 03/31/2019 Anesthesia Event General Surgery Devang Hudson MD Cheema, Ivelisse, HEARING CONSULTANT 03/31/2019 [facility] Surgery Sudhir Portillo LEFT ARM BRACHIAL MD Jacky -BRACHIAL FIST JAEL CREATION/ TRANSPOSITION , PATCH ANGIOPLASTY 03/31/2019 [facility] Sudhir Portillo Clotted d ialysis access, initial encounter ([facility]) (Primary Dx); - Encounter Medicine MD Jacky End stage renal disease on dialysis ([facility] ) 04/01/2019 Ephraim Melara MD 03/25/2019 Prep for Surgery Cardiovascular Pham, End stage renal ABHILASH Griffith disease on dial ysis ([facility]) (Primary Dx) 03/24/2019 Anesthesia Event General Surgery Dirk Pinzon MD Cheema, Ivelisse, HEARING CONSULTANT 03/24/2019 Surgery [facility] Surgery Sudhir Portillo BILATERAL UPPER MD Jacky EXTREMITY VENO GRAM 03/24/2019 [facility] Surgery Sudhir Portillo Encounter MD Jacky 03/16/2019 Prep for Surgery Cardiovascular Gladis Pham, ABHILASH 03/16/2019 Telephone Cardiovascular Anil Saldaña MA 02/24/2019 [facility] Surgery Sudhir Portillo End stage renal disease on dialysis ([facility]); Encounter MD Jacky Inferior vena cava obstruction; Encounter kandi galeas vascular access for dialysis for end-stage renal disease ([facility]) 02/24/2019 Telephone Cardiovascular Hope Adame 02/02/2019 Prep for Surgery Cardiovascular Ankit, End stage renal disease on dialysis ([facility]) (Primary Dx); ABHILASH Griffith Inferior vena c navin obstruction; Encounter regar ding vascular access for dialysis for end-stage renal disease (HCC) after 01/25/2019 Surgical History Surgery Date Site/Laterality Comments APPENDECTOMY CARDIAC CATHETERIZATION 11/28/2018 Right Procedur e: Venography extremity right upper extremity; Surg emerita: Pascual Laguna MD; Location: [facility] Rn Discharge Invasive Location; Servi ce: Cardiovascular; Laterality: Righ t; CARDIAC CATHETERIZATION 11/28/2018 N/A Procedur e: Cv injection for venography- righ t leg ; Surgeon: Pascual Laguna MD; Location: [facility] Rn Discharge Invasive Loc ation; Service: Cardiov ascular; Laterality: N/A; CARDIAC CATHETERIZATION 11/28/2018 N/A Procedur e: Insertion vena cava filter; Winston rgeon: Pascual Laguna MD; Location: [facility] Rn Discharge Invasive Locatio n; Service: Cardiov ascular; Laterality: N/A; CARDIAC CATHETERIZATION 11/28/2018 N/A Procedur e: Cv venography superior vena ca va; Surgeon: Pascual Laguna MD; Location: [facility] Rn Discharge Invasive Loc ation; Service: Cardiov ascular; Laterality: N/A; CARDIAC CATHETERIZATION 11/28/2018 N/A Procedur e: Cv tunneled catheter inserti on Right External jugular ; Surgeon: Pascual Laguna MD; Location: [facility] Rn Discharge Invasive Locatio n; Service: Cardiov ascular; Laterality: N/A; VENOGRAM, EXTREMITY 03/24/2019 Arm Lower/Bilateral Procedur e: BILATERAL UPPER EXTREMITY VENOGR AM; Surgeon: Sudhir Portillo MD; Location: [facility] Main OR; S ervice: Vascular; Later ality: Bilateral; CREATION, AV FISTULA 03/31/2019 Arm Lower/Left Procedure: LEFT ARM BRACHIAL -BRACHI AL FISTULA CREATION/ TRANS POSITION ,PATCH ANGIOPLAS TY; Surgeon: Sudhir Portillo MD; Location: [facility] Main OR; S ervice: Vascular; Later ality: Left; Medical devices from this surgery are in t he Implants section. FISTULOGRAPHY, DIALYSIS 04/21/2019 Arm Upper/Left Procedur e: LEFT ARM SHUNT, AND DECLOTTING ARTERIOVEN OUS FISTULOGRAM WITH THROMBECTOM Y, ANGIOPLASTY BALL OON AND STENTING; Surge on: Sudhir Portillo MD; Lo cation: [facility] Main OR; S ervice: Vascular; Later ality: Left; Medical devices from this surgery are in t he Implants section. REVISION, ARTERIOVENOUS 05/22/2019 Arm Upper/Left Procedur e: LEFT UPPER ARM GRAFT, WITH ANGIOGRAPHY FISTULAG ZULEYKA ,LEFT ARM ARTERIOVENOUS FI STULA PSEUDOANEURYSM R EPAIR, BALLOON ANGIOPLA STY AND STENTING OF THE LEFT ARM FISTULA; Surgeo n: Sudhir Portillo i, MD; Location: [facility] OR; Service: Vascula r; Laterality: Left ; Medical devices from this surgery are in t he Implants section. 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 Hypertension Depression Nervous stomach per pt report Wears reading eyeglasses Wears dentures upper and lower Incisional hernia per pt report Renal disorder ESRD ON HEMODIALYSIS M-W-F Social History Tobacco Use Types Packs/Day Years Used Date Current Every Day Smoker Cigarettes 1.5 Sta rted: 1951 Smokeless Tobacco: Never Used Tobacco Cessation: Ready to Quit: No; Co unseling Given: Yes Alcohol Use Drinks/Week oz/Week Comments Not Currently 0-1 Cans of beer 0.0 - 1.0 Sex Assigned at Date Recorded Not on file Last Filed Vital Signs Vital Sign Reading [...] (#1) 12/05/1995 65+ PNEUMOCOCCAL VACCINE (1 of 1 - PPSV23) 2010 INFLUENZA VACCINE 10/17/2019 Implants Implanted Type Area Parish Nurse Device Shelf Model / Identifier Expiration Serial / Date Lot Stent Endoprosthesis Viabahn 207x1yr 6mm Hepbi W/Rad Onofre - [id number] Coronary N/A: W L GORE 03/31/2022 [id number] / Implanted: 05/22/2019 at [facility] (Quantity not on file) Stents N/A [id number] / [id number] Stent Endprths Viabahn 75x5cm 6mm Heprn Bioactv Surf - [id number] - [id number] Surgical Left: W L GORE 08/26/2021 [id number] / Implanted: Qty: 1 on 04/21/2019 by Sudhir Portillo MD at [facility] Stents Arm [id number] / [id number] Stent Endprths Viabahn 120x2.5cm 6mm Hep rn Bioactv Surf - [id number] - [id number] Surgical Left: W L GORE 11/02/2021 [id number] / Implanted: Qty: 1 on 04/21/2019 by Sudhir Portillo MD at [facility] Stents Arm [id number] / [id number] Patch Vasclr Perph 0.8x8cm Vascu-Guard - [id number] - [id number] Vascular N/A: HORNE 10/08/2023 [id number] / Implanted: Qty: 1 on 03/31/2019 by Sudhir Portillo MD at [facility] Graft N/A BIOSCIENCE XXX / [id number] Procedures Procedure Name Priority Date/Time Associated Comments Diagnosis FL AN ELECTIVE Routine 06/09/2019 8:47 Results f [...] 05/22/2019 4:00 Results f or this PM DENTAL TECHNICIAN INSTRUCTOR procedure are i n the results section. FL AN ELECTIVE Routine 05/22/2019 12:36 Results f or this SUPRAGLOTTIC AIRWAY PM DENTAL TECHNICIAN INSTRUCTOR procedur e are in the results section. POC PANEL 4 Routine 05/22/2019 11:55 Results for this AM DENTAL TECHNICIAN INSTRUCTOR procedure are i n the results section. ESTIMATED GFR Routine 05/22/2019 11:50 Results fo r this AM DENTAL TECHNICIAN INSTRUCTOR procedure are i n the results section. PARTIAL THROMBOPLASTIN Routine 05/22/2019 11:50 R esults for this TIME (PTT) AM DENTAL TECHNICIAN INSTRUCTOR procedure are i n the results section. PROTHROMBIN TIME WITH Routine 05/22/2019 11:50 Re sults for this INR AM DENTAL TECHNICIAN INSTRUCTOR procedure are i n the results section. HC COMPLETE BLD COUNT Routine 05/22/2019 11:50 Re sults for this W/AUTO DIFF AM DENTAL TECHNICIAN INSTRUCTOR procedure are i n the results section. BASIC METABOLIC PANEL Routine 05/22/2019 11:50 Re sults for this AM DENTAL TECHNICIAN INSTRUCTOR procedure are i n the results section. TYPE AND SCREEN Routine 05/22/2019 11:50 Results for this AM DENTAL TECHNICIAN INSTRUCTOR procedure are i n the results section. OR FL < 1 HOUR Routine 04/21/2019 10:15 Results f or this AM DENTAL TECHNICIAN INSTRUCTOR procedure are i n the results section. POC PANEL 4 Routine 04/21/2019 7:09 Results for this AM DENTAL TECHNICIAN INSTRUCTOR procedure are i n the results section. ESTIMATED GFR Routine 04/21/2019 7:03 Results fo r this AM DENTAL TECHNICIAN INSTRUCTOR procedure are i n the results section. PARTIAL THROMBOPLASTIN Routine 04/21/2019 7:03 R esults for this TIME (PTT) AM DENTAL TECHNICIAN INSTRUCTOR procedure are i n the results section. PROTHROMBIN TIME WITH Routine 04/21/2019 7:03 Re sults for this INR AM DENTAL TECHNICIAN INSTRUCTOR procedure are i n the results section. HC COMPLETE BLD COUNT Routine 04/21/2019 7:03 Re sults for this W/AUTO DIFF AM DENTAL TECHNICIAN INSTRUCTOR procedure are i n the results section. BASIC METABOLIC PANEL Routine 04/21/2019 7:03 Re sults for this AM DENTAL TECHNICIAN INSTRUCTOR procedure are i n the results section. TYPE AND SCREEN Routine 04/21/2019 7:03 Results for this AM DENTAL TECHNICIAN INSTRUCTOR procedure are i n the results section. FL AN ELECTIVE Routine 03/31/2019 3:45 Results f or this SUPRAGLOTTIC AIRWAY PM DENTAL TECHNICIAN INSTRUCTOR procedur e are in the results section. POC PANEL 4 Routine 03/31/2019 10:41 Results for this AM DENTAL TECHNICIAN INSTRUCTOR procedure are i n the results section. ESTIMATED GFR STAT 03/31/2019 10:36 Results fo r this AM DENTAL TECHNICIAN INSTRUCTOR procedure are i n the results section. TYPE AND SCREEN STAT 03/31/2019 10:36 Results for this AM DENTAL TECHNICIAN INSTRUCTOR procedure are i n the results section. BASIC METABOLIC PANEL STAT 03/31/2019 10:36 Re sults for this AM DENTAL TECHNICIAN INSTRUCTOR procedure are i n the results section. OR FL < 1 HOUR Routine 03/24/2019 10:05 Results f or this AM DENTAL TECHNICIAN INSTRUCTOR procedure are i n the results section. ECG 12-LEAD Routine 03/24/2019 7:26 Results for this AM DENTAL TECHNICIAN INSTRUCTOR procedure are i n the results section. POC PANEL 4 Routine 03/24/2019 7:25 Results for this AM DENTAL TECHNICIAN INSTRUCTOR procedure are i n the results section. ESTIMATED GFR Routine 03/24/2019 7:18 Results fo r this AM DENTAL TECHNICIAN INSTRUCTOR procedure are i n the results section. PARTIAL THROMBOPLASTIN Routine 03/24/2019 7:18 R esults for this TIME (PTT) AM DENTAL TECHNICIAN INSTRUCTOR procedure are i n the results section. PROTHROMBIN TIME WITH Routine 03/24/2019 7:18 Re sults for this INR AM DENTAL TECHNICIAN INSTRUCTOR procedure are i n the results section. HC COMPLETE BLD COUNT Routine 03/24/2019 7:18 Re sults for this W/AUTO DIFF AM DENTAL TECHNICIAN INSTRUCTOR procedure are i n the results section. BASIC METABOLIC PANEL Routine 03/24/2019 7:18 Re sults for this AM DENTAL TECHNICIAN INSTRUCTOR procedure are i n the results section. TYPE AND SCREEN Routine 03/24/2019 7:18 Results for this AM DENTAL TECHNICIAN INSTRUCTOR procedure are i n the results section. XR CHEST 1 VW PORTABLE Routine 03/24/2019 6:48 R esults for this AM DENTAL TECHNICIAN INSTRUCTOR procedure are i n the results section. after 01/25/2019 Results Airway (06/09/2019 8:47 AM CDT) Narrative Performed At Devang Hudson MD 05/17 8:48 AM Airway Date/Time: 06/09/2019 8:47 AM Performed by: Devang Hudson MD Authorized by: Devang Hudson MD Location: OR Urgency: Elective Difficult Airway: No Anesthesiologist: Pati Hudson MD Resident/RN PROCEDURE/AA: Carmen Hart CRNA Performed by: resident/RN PROCEDURE/AA Preoxygenated with 100% O2: Yes C-spine Precautions Maintained Throughou t: Yes Mask Ventilation: Easy mask Final Airway Type: Endotracheal airway Final Endotracheal Airway: ETT Cuffed: Yes Technique Used: Direct laryngoscopy Devices/Methods Used in Placement: Int ubating stylet Insertion Site: Oral Blade Type: [place]ancock Laryngoscope Blade/Videolaryngoscope Gregg de Size: 2 ETT Size (mm): 8.0 Cuff [...] of5 resultswithin the time period is included. POC sodium 135 135 - 148 [facility] mmol/L [facility] POC potassium 4.2 3.5 - 5.0 [facility] mmol/L [facility] POC hematocrit 33 (L) 41 - 51 % [facility] POC glucose 82 65 - 99 mg/dL ALIRIO BURGOS Comment: [facility] Loading Machine Operator Name: [facility] Device ID: [id number] POC hemoglobin 11.2 (L) 14.0 - 18.0 ALIRIO BURGOS g/dL [facility] Specimen Blood Performing Organization Address [facility] Phon e Number [facility] DEPARTMENT OF PATHOLOGY [address] [place] [address] X [phone] AND GENOMIC MEDICINE [address] [place] [address] HOSPITAL Estimated GFR (06/09/2019 7:20 AM CDT)Only the most recent of5 resultswithin the time period is included. [facility] Estimated GFR 6 (A) mL/min/1.73 ALIRIO BURGOS Comment: m2 [facility] Catergory Units Interpretation HOS PITAL G1 >=90 [...] published in 2014. Specimen Performing Organization Address City/[facility]/ZIP Code Phon e Number [facility] DEPARTMENT OF PATHOLOGY [address] [place] [phone] [place] [address] HOSPITAL Partial thromboplastin time, activated (06/09/2019 7:20 AM CDT)Only the most recent of4 resultswithin the time period is included. [facility] PTT >250.0 (HH) 23.0 - 36.0 ALIRIO BURGOS Comment: sec [facility] PTT therapeutic range for unfractionated heparin is HOSPITAL 61.0-112.0 seconds which corresponds to Anti-Xa 0.3-0.7 U/ml. Specimen Blood Performing Organization Address City/[facility]/ZIP Code Phon e Number [facility] DEPARTMENT OF PATHOLOGY [address] [place] [address] X [phone] [place] [address] HOSPITAL Prothrombin time with INR (06/09/2019 7:20 AM CDT)Only the most recent of4 resultswithin the time period is included. Prothrombin time 14.3 11.5 - 14.5 [place] sec [facility] INR 1.1 [place] Comment: [facility] International Normalized Ratio (INR) is a [facility] monitoring tool for patients who are stable on oral anticoagulant therapy. An INR of 2.0-3.0 is suggested for deep vein thrombosis/pulmonary embolism. Specimen Blood Performing Organization Address City/State/ZIP Code Phon e Number [facility] DEPARTMENT OF PATHOLOGY [address] [facility] [place] [address] AND GENOMIC MEDICINE [facility] [address] [facility] [place] [address] [facility] CBC with platelet and differential (06/09/2019 7:20 AM CDT)Only the most recent of4 resultswithin the time period is included. WBC 7.9 4.5 - 11.0 k/uL [facility] RBC 3.35 (L) 4.40 - 6.00 [facility] m/uL [facility] HGB 10.2 (L) 14.0 - 18.0 [facility] g/dL [facility] HCT 32.6 (L) 41.0 - 51.0 % [facility] MCV 97.3 82.0 - 100.0 fL [facility] MCH 30.4 27.0 - 34.0 pg [facility] MCHC 31.3 31.0 - 37.0 [facility] g/[facility] RDW - SD 52.1 37.0 - 55.0 fL [facility] MPV 11.4 (H) 6.9 - 11.0 fL [facility] Platelet count 179 150 - 400 K/uL [facility] Nucleated RBC 0.00 /100 WBC [facility] Neutrophils 70.2 (H) 39.0 - 69.0 % [facility] Lymphocytes 18.7 (L) 25.0 - 45.0 % [facility] Monocytes 7.7 0.0 - 10.0 % [facility] Eosinophils 2.0 0.0 - 5.0 % [facility] Basophils 1.0 0.0 - 1.0 % [facility] Immature granulocytes 0.4 0.0 - 1.0 % [facility] Specimen Blood Performing Organization Address City/[facility] Phon e Number [facility] DEPARTMENT OF PATHOLOGY [address] [place] [address] AND [place] [address] HOSPITAL Type and screen (06/09/2019 7:20 AM CDT)Only the most recent of5 resultswithin the time period is included. Pathologist Sig nature ABO grouping O [facility] Rh type POS [facility] Antibody screen (gel) NEG [facility] Specimen Blood Performing Organization Address City/[facility] Phon e Number [facility] DEPARTMENT OF PATHOLOGY [address] [place] [address] AND [place] [address] HOSPITAL Basic metabolic panel (06/09/2019 7:20 AM CDT)Only the most recent of5 results within the time period is included. Pathologist Sig nature Sodium 133 (L) 135 - 148 mEq/L [facility] Potassium 4.4 3.5 - 5.0 mEq/L [facility] Chloride 92 (L) 98 - 112 mEq/L [facility] CO2 25 24 - 31 mEq/L [facility] Anion gap 16@ANIO (H) 7 - 15 mEq/L [facility] BUN 33 (H) 8 - 23 mg/dL [facility] Creatinine 8.05 (H) 0.70 - 1.20 mg/dL [facility] Glucose 86 65 - 99 mg/dL [facility] Calcium 9.3 8.8 - 10.2 mg/dL [facility] Specimen Blood Performing Organization Address City/[facility] Phon e Number [facility] DEPARTMENT OF PATHOLOGY [address] [place] [address] AND [place] [address] HOSPITAL OR FL < 1 Hour (05/22/2019 4:00 PM DENTAL TECHNICIAN INSTRUCTOR)Only the most recent of3 results within the time period is included. Specimen Narrative Performed At EXAMINATION: OR FL < 1 HOUR [facility] C-arm fluoroscopy was requested in OR. IMPRESSION: Separate operative report will be issued by the physic camilo performing the procedure. [id number] Procedure Note Hm Interface, Radiology Results Incoming - 05/27/2019 2:38 PM CDT EXAMINATION: OR FL < 1 HOUR C-arm fluoroscopy was requested in OR. IMPRESSION: Separate operative report will be issued by the physician performing the procedure. [id number] Performing Organization Address City/State/ZIP Code Phon e Number [facility] [address] [place] [address] Airway (05/22/2019 12:36 PM DENTAL TECHNICIAN INSTRUCTOR) Narrative Performed At Magdalene Smith CRNA 05/22/2019 12:36 PM Airway Date/Time: 05/22/2019 12:36 PM Performed by: Magdalene Smith CRNA Authorized by: Devang Hudson MD Location: OR Urgency: Elective Difficult Airway: No Anesthesiologist: Pati Hudson MD Resident/MINAL/AA: Magdalene Smith CRNA Performed by: resident/MINAL/AA Preoxygenated with 100% O2: Yes C-spine Precautions Maintained Throughou t: Yes Mask Ventilation: Easy mask Final Airway Type: Supraglottic airway Final LMA: I-Gel LMA Size: 5 Number of Attempts at Approach: 1 Airway (03/31/2019 3:45 PM DENTAL TECHNICIAN INSTRUCTOR) Narrative Performed At Maya Mata CRNA 03/31/2019 4:17 PM Airway Date/Time: 03/31/2019 3:45 PM Performed by: Maya Mata CRNA Authorized by: Devang Hudson MD Location: OR Urgency: Elective Difficult Airway: No Anesthesiologist: Pati Hudson MD Resident/RN PROCEDURE/AA: Maya Mata C RNA Performed by: resident/RN PROCEDURE/AA Preoxygenated with 100% O2: Yes C-spine Precautions Maintained Throughou t: Yes Mask Ventilation: Not attempted Final Airway Type: Supraglottic airway Final LMA: I-Gel LMA Size: 5 Number of Attempts at Approach: 1 ECG 12 lead (03/24/2019 7:26 AM DENTAL TECHNICIAN INSTRUCTOR) Pathologist Sig nature Ventricular rate 58 [facility] Atrial rate 58 [facility] MUSE FL interval 262 [facility] MUSE QRSD interval 86 [...] comparison with ECG of 27-NOV-2018 18:57,-No significant [facility] MUSE change was found-Electronica lly Signed By Mcihael MOREL, Irlanda (2013) on 03/24/2019 7:47:25 AM Specimen Narrative Performed At This result has an attachment that is no t available. Performing Organization Address City/State/ZIP Code Phon e Number [facility] MUSE [address] [place] [address] XR Chest 1 Vw Portable (03/24/2019 6:48 AM DENTAL TECHNICIAN INSTRUCTOR) Specimen Narrative Performed At EXAMINATION: XR CHEST [...] Peripheral arterial calcifi cations are also present. [id number] Procedure Note Hm Interface, Radiology Results Incoming - 03/24/2019 7:09 AM DENTAL TECHNICIAN INSTRUCTOR EXAMINATION: XR CHEST 1 VW PORTABLE CLINICAL [...] extremity. Peripheral arterial calcifications are also present. [facility]-[id number] Performing Organization Address City/State/ZIP Code Phon e Number [facility] [address] [facility] [place] [address] after 01/25/2019 Insurance Payer Benefit Plan / Subscriber ID Effective Phone Address T ype Group Dates MEDICARE MEDICARE PART A [id number] 2010-[place], [place] Medicare AND B ent COMMERCIAL MISC MIS COMMERCIAL [id number] 2012-[facility] Commercial ent Advance Directives For more information, please contact: [phone] Type Date Recorded Patient Diamond Sizer Explanati on Advance Directives, Living Will 04/21/2019 5:56 AM and Medical Power of Medical Education Specialist Advance Directives, Living Will 05/22/2019 11:03 AM and Medical Power of Medical Education Specialist
--- OUTSIDE RECORDS SUMMARY | 2020-01-26 23:46 | XMS REPORT | Continuity of Care Document ---
:1945 Author Organization [facility] t Address [address] [place] [address] Care Team Providers Name Role Phone Edvin MOREL Primary Care Physician Unknown Attending Clinician Unavailable Setphon HUNG Attending Clinician Unavailable Singer YANG Attending Clinician Awa MOREL P Attending Clinician Keila Harmon MD Attending Clinician Deep Attending Clinician Unavailable Kamlesh Portillo MDi Attending Clinician Ankit HUNG Attending Clinician Unavailable Kourtney Hudson MD Attending Clinician Rosalva GILLETTE Attending Clinician Jada Lomeli Attending Clinician Antonio Pinzon MD Attending Clinician Zahida VEGA Attending Clinician Saritha MOREL P. Attending Clinician Piotr ELLIS Attending Clinician Unavailable ALYSON Attending Clinician Unavailable Elisa Billings MD Admitting Clinician BANDAR Admitting Clinician Unavailable SARITHA Admitting Clinician Unavailable ALYSON Admitting Clinician Unavailable Payers Payer Name Policy Type Policy Effective Date Expiration Date Sour ce Number MEDICAREMEDICARE PART [id number] 2010 Lauri Ng AND 00:00:00 Christian [id number] 2010- [place] [employer] COMMERCIAL MISCMISC [id number] 2012 [place] [id number] 00:00:00 Met correa 03/2012-PresentCommerc ial Problems Condition Condition Condition Status Onset Resolution Last Treating Co mments Source Name Details Category Date Date Treatment Clinician Date 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 3-20 Added Method i of of 00:00: automatic st dialysis dialysis 00 ally from vascular vascular request access access for surgery [id number] 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 05-20 Added Methodi arterioven arterioven 00:00: automatic st ous ous 00 ally from dialysis dialysis request fistula fistula for surgery [id number] ESRD (end ESRD (end Disease Active [place] stage stage 1-15 [facility] renal renal 00:00: st disease) disease) 00 End stage End stage Disease Active 2018-03 Overview: [facility] renal renal 04-04 Added Methodi disease on disease on 00:00: automatic st dialysis dialysis 00 ally from request for surgery [id number] Encounter Encounter Disease Active 2018-03 Overview: [facility] regarding regarding 04-04 Added Meth len vascular vascular 00:00: automatic st access for access for 00 ally from dialysis dialysis request for for for end-stage end-stage surgery renal renal [id number] disease disease 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-29 Meth len obstructio obstructio 00:00: st n n 00 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, occlusion, 14 Me thodi R BCV mild R BCV mild 00:00: st stenosis stenosis 00 Clotted Clotted Disease Active [facility] dialysis dialysis 11-27 Method i access access 00:00: st 00 Allergies, Adverse Reactions, Alerts Allergy Allergy Status Severity Reaction(s) Onset Inactive Treating Comm ents Source Name Type Date Date Clinician Aspirin Propensi Active Itching [place] ty to 04-01 [facility] adverse 00:00: st reaction 00 s to drug Clopidog Propensi Active Itching [place] rel ty to 1-15 Methodi adverse 00:00: st reaction 00 s to drug Enoxapar Propensi Active Itching [place] in ty to 1-15 Methodi adverse 00:00: st reaction 00 s to drug Heparin Propensi Active Itching [place] ty to 1-15 Method[facility] adverse 00:00: st reaction 00 s to drug Other Propensi Active Itching All blood [place] ty to 9-13 thinners [facility]i adverse 00:00: st reaction 00 s Social History Social Habit Start Date Stop Date Quantity Comments Source History of tobacco Current every [place] Christian use day smoker Sex Assigned At [facility] ethodist Cigarettes smoked 2019-06-10 2019-06-10 [facility] current (pack per 00:00:00 00:00:00 day) - Reported Tobacco use and 2019-06-10 2019-06-10 Never used [facility] ethodist exposure 00:00:00 00:00:00 Alcohol intake 2019-06-10 2019-06-10 Ex-drinker [facility] thodist 00:00:00 00:00:00 (finding) Smoking Status Start Date Stop Date Source Current every day smoker 2019-06-10 00:00:00 [place] Streamezzogrant Christian Medications Ordered Filled Start Stop Current Ordering Indication Dosage Frequency Signature Comments Components Source Medication Medication Date Date Medication? Clinician (SIG) Name Name lidocaine-p Yes Apply [place] rilocaine 06-24 topically Metho di (EMLA) 00:00: as needed st 2.5-2.5 % 00 for mild cream pain for up to 30 days. norflurane Yes 1{spray Apply 1 [place] (PAIN-EASE) - } spray Methodi aerosol,spr 00:00: topically s t ay 00 as needed (Pain for dialysis) for up to 30 days. oxyCODone-a Yes chronic 1{tbl} Q6H Take 1 [facility] cetaminophe 4- pain tablet by Met joaquim burns 00:00: mouth st (Percocet) 00 every 6 5-325 mg (six) per tablet hours as needed for moderate pain for up to 5 days .chronic pain. Max Daily Amount: 4 tablets oxyCODone-a 2020- No chronic 1{tbl} Q4H Take 1 [facility] cetaminophe 4- 04-09 pain tablet by Me thodi n 00:00: 00:[address] (Percocet) 00 :00 every 4 2.5-325 mg (four) per tablet hours as needed for moderate pain for up to 5 days .chronic pain. Max Daily Amount: 6 tablets metoprolol 2020-0 Yes 75mg Q.5D Take 75 mg H [...] times a day. calcium 2020-0 Yes 1{tbl} Q.[id number] Chew 1 [facility] carbonate 3-24 [id number] tablet 3 [facility] (TUMS) 200 12:22: 3D (three) st mg calcium 47 times a (500 mg) day. chewable Before tablet meals and snacks NIFEdipine 2020-0 Yes 30mg QD Take 30 mg [place] XL 3-24 by mouth [facility] (PROCARDIA 12:22: daily. st XL) 30 MG 47 24 hr tablet acetaminoph 2020-0 2020- No acute pain 1{tbl} Q6H Take 1 [facility] en-codeine 3-24 03-29 tablet by Met hodi (TYLENOL 00:00: 23:[address] WITH 00 :00 every 6 CODEINE #3) (six) 300-30 mg hours as per tablet needed for moderate pain for up to 5 days .acute pain. NIFEdipine 2020-0 2020- No 30mg Q.5D Take 30 mg [facility] XL - 03-23 by mouth 2 [facility] (PROCARDIA 15:37: 00:00 (two) st XL) 90 MG 07 :00 times a 24 hr day. tablet acetaminoph 2019- No acute pain 1{tbl} Q6H Take 1 [facility] en-codeine 3-06 03-11 tablet by Met joaquim (TYLENOL 00:00: 23:[address] WITH 00 :00 every 6 CODEINE #3) (six) 300-30 mg hours as per tablet needed for moderate pain for up to 5 days .acute pain. traMADol 2019- No acute pain 50mg Q6H Take 1 [facility] (ULTRAM) 50 2-18 02-24 tablet (50 M ethodi mg tablet 00:00: 23:59 mg total) st 00 :00 by mouth every 6 (six) hours as needed for moderate pain for up to 6 days .acute pain. gabapentin 2019- No 300mg Q.81001812 Take 1 [facility] (NEURONTIN) 2- 03-06 [id number] capsule Methodi 300 mg 00:00: 00:00 3D ([address] capsule 00 :00 total) by mouth 3 (three) times a day for 30 days. traMADol 2019- No acute pain 50mg Q6H Take 1 [facility] (ULTRAM) 50 2-04 02-18 tablet (50 M ethodi mg tablet 00:00: 23:59 mg total) st 00 :00 by mouth every 6 (six) hours as needed for moderate pain for up to 14 days .acute pain. traMADol 2019- No acute pain 50mg Q8H Take 1 [facility] (ULTRAM) 50 1-15 -25 tablet (50 M [...] blood 2019-06-25 08:48:00 192 mm[Hg] Denia n Christian pressure Diastolic blood 2019-06-25 08:48:00 81 mm[Hg] Savanah on Christian pressure Heart rate 2019-06-25 08:48:00 65 /min Walekr Hunt Body weight 2019-06-25 08:48:00 72.122 kg Walker Fishist BMI 2019-06-25 08:48:00 24.90 kg/m2 Walker Hunt Oxygen saturation in 2019-06-25 08:48:00 100 /min Walker Hunt Arterial blood by Pulse oximetry Respiratory rate 2019-06-09 12:00:00 17 /min John ruiz Christian Body temperature 2019-06-09 11:23:00 36.28 Macey John Hunt Body height 2019-06-08 16:06:00 170.2 cm Walker Hunt Procedures Procedure Date / Time Performing Clinician Source Performed [place] AN ELECTIVE 2019-06-09 08:47:51 Walker Hudson odist ENDOTRACHEAL AIRWAY Devang Oconnell POC PANEL 4 2019-06-09 07:31:00 Sudhir Portillo odist Bandar-Hsi TYPE AND SCREEN 2019-06-09 07:20:00 Walker Hudson BASIC METABOLIC PANEL 2019-06-09 07:20:00 Denia Hudson HC COMPLETE BLD COUNT 2019-06-09 07:20:00 Denia Hudson W/AUTO DIFF Devang Oconnell PROTHROMBIN TIME WITH INR 2019-06-09 07:20:00 Lauri Hudson PARTIAL THROMBOPLASTIN 2019-06-09 07:20:00 Savanah Hudson TIME (PTT) Devang Oconnell ESTIMATED GFR 2019-06-09 07:20:00 Walker Hudson odist Devang Oconnell OR FL < 1 HOUR 2019-05-22 16:00:00 Sudhir Portillo odist Portillo-Hsi VT AN ELECTIVE 2019-05-22 12:36:00 Magdalene Smith ethodist SUPRAGLOTTIC AIRWAY POC PANEL 4 2019-05-22 11:55:00 Sudhir Portillo odist Portillo-Hsi TYPE AND SCREEN 2019-05-22 11:50:00 Walker Hudson BASIC METABOLIC PANEL 2019-05-22 11:50:00 Denia Hudson HC COMPLETE BLD COUNT 2019-05-22 11:50:00 Denia Hudson W/AUTO DIFF Devang Oconnell PROTHROMBIN TIME WITH INR 2019-05-22 11:50:00 Lauri Hudson PARTIAL THROMBOPLASTIN 2019-05-22 11:50:00 Savanah Hudson on Christian TIME (PTT) Devang Oconnell ESTIMATED GFR 2019-05-22 11:50:00 Walker Hudson OR FL < 1 HOUR 2019-04-21 10:15:18 Sudhir Portillo-Luis Enrique POC PANEL 4 2019-04-21 07:09:00 Sudhir Portillo odist Bandar-Hsi TYPE AND SCREEN 2019-04-21 07:03:00 Walker Hudson BASIC METABOLIC PANEL 2019-04-21 07:03:00 Denia Hudson HC COMPLETE BLD COUNT 2019-04-21 07:03:00 Denia Hudson W/AUTO DIFF Devang Oconnell PROTHROMBIN TIME WITH INR 2019-04-21 07:03:00 Lauri Hudson PARTIAL THROMBOPLASTIN 2019-04-21 07:03:00 Savanah Hudson on Christian TIME (PTT) Devang Oconnell ESTIMATED GFR 2019-04-21 07:03:00 Walker Hudson VT AN ELECTIVE 2019-03-31 15:45:48 Maya Mata Vt thodist SUPRAGLOTTIC AIRWAY POC PANEL 4 2019-03-31 10:41:00 Sudhir Portillo odtrey Portillo-Hsi BASIC METABOLIC PANEL 2019-03-31 10:36:00 Denia Hudson TYPE AND SCREEN 2019-03-31 10:36:00 Walker Hudson ESTIMATED GFR 2019-03-31 10:36:00 Walker Hudson OR FL < 1 HOUR 2019-03-24 10:05:15 BandarSudhir Walker Mor Portillo-Hsi ECG 12-LEAD 2019-03-24 07:26:11 Walker Hudson Mor shane Tapia. POC PANEL 4 2019-03-24 07:25:00 PortilloSudhir Walker Mor Rico TYPE AND SCREEN 2019-03-24 07:18:00 Walker Hudson BASIC METABOLIC PANEL 2019-03-24 07:18:00 Denia Hudson HC COMPLETE BLD COUNT 2019-03-24 07:18:00 Denia Hudson W/AUTO DIFF Devang Oconnell PROTHROMBIN TIME WITH INR 2019-03-24 07:18:00 Lauri Hudson PARTIAL THROMBOPLASTIN 2019-03-24 07:18:00 Savanah Hudson TIME (PTT) Devang Oconnell ESTIMATED GFR 2019-03-24 07:18:00 Walker Hudson XR CHEST 1 VW PORTABLE 2019-03-24 06:48:06 Savanah Hudson Plan of Care Planned Activity Planned Date Details Comments Source Future Scheduled 2019-10-17 INFLUENZA VACCINE Denia Hunt Test 00:00:00 [code = INFLUENZA VACCINE] Future Scheduled 2010 65+ PNEUMOCOCCAL [facility] Test 00:00:00 VACCINE (1 of 1 - PPSV23) [code = 65+ PNEUMOCOCCAL VACCINE (1 of 1 - PPSV23)] Future Scheduled 1995-12-05 COLONOSCOPY SCREENING Lauri webster Christian Test 00:00:00 [code = COLONOSCOPY SCREENING] Future Scheduled 1995-12-05 SHINGLES VACCINES (#1) Epifanio galeano Christian Test 00:00:00 [code = SHINGLES VACCINES (#1)] Encounters Start End Encounter Admission Attending Care Care Encounter Source Date/Time Date/Time Type Type Clinicians Facility Department ID 2020-01-20 2020-01-20 Letter Unknown, [facility] [id number] 00:00:00 00:00:00 (Out) Attending [facility] [id number] [facility] [id number] 2019-12-28 2019-12-28 Transition SzymanskiRuben [id number] 00:00:00 00:00:00 of Care Jada Rizvi [id number] [place] 4.2.7.2.686 [id number] 2019-12-22 2019-12-26 [facility] Fei Quintana [id number] 10:47:00 13:00:00 Encounter Rudy Billings [id number] [facility] 4.2.7.2.686 [id number] 2019-06-25 2019-06-25 Outpatient [facility] [id number] [facility] 00:00:00 00:00:00 SUDHIR 026 Method i 2019-06-09 2019-06-09 Outpatient [facility] [id number] [facility] 00:00:00 00:00:00 SUDHIR 574 Method i 2019-06-05 2019-06-08 Outpatient [facility] [id number] [facility] 00:00:00 00:00:00 SUDHIR 561 Method i 2019-05-22 2019-05-22 Outpatient [facility] [id number] [facility] 00:00:00 00:00:00 SUDHIR 516 Method i 2019-05-21 2019-05-21 [facility] [id number] [facility] 00:00:00 00:00:00 SUDHIR 122 Method i 2019-04-21 2019-04-21 Outpatient BANDAR [facility] [id number] [facility] 00:00:00 00:00:00 SUDHIR 367 Method i 2019-03-31 2019-04-01 Outpatient SARITHA [facility] [id number] [facility] 00:00:00 00:00:00 FANTA 170 Method i 2019-03-24 2019-03-24 Outpatient BANDAR [facility] [id number] [facility] 00:00:00 00:00:00 SUDHIR 042 Method i 2019-02-24 2019-02-24 Outpatient BANDAR [facility] [id number] [facility] 00:00:00 00:00:00 SUDHIR 192 Method i 2018-11-27 2018-11-29 Inpatient ALYSON [facility] [id number] [facility] 00:00:00 00:00:00 CHINONYEREM 928 [facility] Results Test Description Test Time Test Comments Results Result Comments Source Partial thromboplastin time, activated 2019-06-09 09:22:49 Test Item Value Reference Range Interpretation Comme nts PTT (test code = 3173-2) >250.0 23.0- 36.0 sec HH P TT therapeutic range for unfractionated heparin is61.0-112.0 se conds which corresponds to Anti-Xa0.3-0.7 U/ml. Lab Interpretation (test code Abnormal = 81712-6) [facility] SfacuyzcaWfgaoj6432-77-51 08:47:51WDevang hernandez MD 06/09/2019 8:48 AMAirwayDate/Time: 06/09/2019 8:47 AMPerformed by:Devang Hudson MDAuthorized by: Devang Hudson MD Location: ORUrgency: ElectiveDifficult Airway: No Anesthesiologist: Devang Hudson MDResident/FORMULATION SCIENTIST/AA: Carmen Hart CRNAPerformed by: resident/FORMULATION SCIENTIST/AAPreoxygenated with 100% O2: Yes C-spine Precautions Maintained [...] Attempts at Approach: 1[facility] MethodistProthrombin time with [id number] 08:34:38 Test Item Value Reference Range Interpretation Comments Prothrombin time (test 14.3 11.5- 14.5 sec code = 5902-2) INR (test code = 1.1 The Interna tional 63549-2) Normalized Rati o (INR) is a therapeutic m onitoring tool for patien ts who are stable on oral anticoagulant t herapy. An INR of 2.0-3.0 is suggested for d eep vein thrombosis/pulm onary embolism. Walker MethodistType and [id number] 08:22:00 Test Item Value Reference Range Interpretation Comments ABO grouping (test code = 883-9) O Rh type (test code = 42469-4) POS Antibody screen (gel) (test code = NEG 890-4) [facility] MethodistBasic metabolic [id number] 08:12:05 Test Item Value Reference Range Interpretation Comments Sodium (test code = 2951-2) 133 135- 148 mEq/L L Potassium (test code = 2823-3) 4.4 3.5- 5.0 mEq/L Chloride (test code = 2075-0) 92 98- 112 mEq/L L CO2 (test code = 8-9) 25 24- 31 mEq/L Anion gap (test code = 73197-4) 16@ANIO 7- 15 mEq/L H BUN (test code = 3094-0) 33 mg/dL 8-23 H Creatinine (test code = 2160-0) 8.05 mg/dL 0.7-1.2 H Glucose (test code = 2345-7) 86 mg/dL 65-99 Calcium (test code = 22542-7) 9.3 mg/dL 8.8-10.2 Lab Interpretation (test code = Abnormal 60067-0) Walker MethodistEstimated [id number] 08:12:05 Test Item Value Reference Range Interpretation Comments Estimated GFR (test 6 mL/min/1.73 m2 Hernandez you Units code = 5488) InterpretationG 1 >=90 Yessica l or highG2 60-89 Mildly decrease dG3a 45-59 Mil dly to moderately decr vnzzwQ0g 30-44 Moderately to s everely decreasedG4 15-29 Severe ly decreasedG5 <15 Kidney sandra lureThe eGFR was calcul ated using the Chron Kidney Disease Epidemiology Collaboration ( CKD-EPI) equation. Interpretation is based on recommendati ons of the National [facility]-Kidn ey Disease Outcome s Quality Initiat brent (NKF-KDOQI) pub lished in 2013. Lab Interpretation Abnormal (test code = 45908-7) Walker MethodistCBC with platelet and qxlgdpggybbv9624-19-54 08:11:19 Test Item Value Reference Range Interpretation Comments WBC (test code = 56993-0) 7.9 4.5- 11.0 k/uL RBC (test code = 30247-6) 3.35 m/uL 4.4-6 L HGB (test code = 718-7) 10.2 g/dL 14-18 L HCT (test code = 4544-3) 32.6 % 41-51 L MCV (test code = 787-2) 97.3 fL 82-100 MCH (test code = 785-6) 30.4 pg 27-34 MCHC (test code = 786-4) 31.3 g/dL 31-37 RDW - SD (test code = 17958-5) 52.1 fL 37-55 MPV (test code = 59956-2) 11.4 fL 6.9-11 H Platelet count (test code = 179 K/uL 150-400 15821-9) Nucleated RBC (test code = 08791-0) 0.00 /100 WBC Neutrophils (test code = 07462-7) 70.2 % 39-69 H Lymphocytes (test code = 70395-0) 18.7 % 25-45 L Monocytes (test code = 69790-3) 7.7 % 0-10 Eosinophils (test code = 87115-3) 2.0 % 0-5 Basophils (test code = 72369-0) 1.0 % 0-1 Immature granulocytes (test code = 0.4 % 0-1 29190-5) Lab Interpretation (test code = Abnormal 12901-0) [facility] MethodistPOC panel [id number] 07:34:01 Test Item Value Reference Range Interpretation Comments POC sodium (test code = 135 mmol/L 813-260 7810-0) POC potassium (test 4.2 mmol/L 3.5-5 code = 6298-4) POC hematocrit (test 33 % 41-51 L code = 4544-3) POC glucose (test code 82 mg/dL 65-99 Opera tor Name: Lauri = 2339-0) BobbyaDevice ID: [id number] POC hemoglobin (test 11.2 g/dL 14-18 L code = 718-7) Lab Interpretation Abnormal (test code = 31181-1) [facility] MethodistOR [place] < 1 [id number] 14:35:51Hm Interface, Radiology Results - 05/27/2019 2:38 PM CDTEXAMINATION: OR FL < 1 HOURC-arm fluoroscopy was requested in OR. IMPRESSION:Separate operative report will be issued by the physician performing the procedure.[id number] [id number] 12:36:00WeMagdalene pang CRNA 05/22/2019 12:36 PMAirwayDate/Time: 05/22/2019 12:36 PMPerformed by: Magdalene Smith CRNAAuthorized by: Devang Hudson MD Location: ORUrgency: ElectiveDifficult Airway: No Anesthesiologist: Devang Hudson MDResident/FORMULATION SCIENTIST/AA: Magdalene Smith CRNAPerformed by: resident/FORMULATION SCIENTIST/AAPreoxygenated with 100% O2: Yes C-spine Precautions Maintained Throughout: Yes Mask Ventilation: Easy maskFinal Airway Type: Supraglottic airwayFinal LMA: I-GelLMA Size: 5Number of Attempts at Approach: 1[facility] ItxocxklfEpcyvq0546-93-66 15:45:48Maya Mata CRNA 03/31/2019 4:17 PMAirwayDate/Time: 03/31/2019 3:45 PMPerformed by: Maya Mata CRNAAuthorized by: Devang Hudson MD Location: ORUrgency: ElectiveDifficult Airway: No Anesthesiologist: Devang Hudson, JOANNEesident/FORMULATION SCIENTIST/AA: Maya Mata CRNAPerformed by: resident/FORMULATION SCIENTIST/AAPreoxygenated with 100% O2: Yes C-spine Precautions Maintained Throughout: Yes Mask Ventilation: Not attemptedFinal Airway Type: Supraglottic airwayFinal LMA:I-GelLMA Size: 5Number of Attempts at Approach: 1 [facility] MethodistECG 12 [id number] 07:47:27 Test Item Value Reference Range Interpretation Comments Ventricular rate (test 58 code = 253) Atrial rate (test code 58 = 255) VT interval (test code 262 = 266) QRSD [...] was found- Walker MethodistXR Chest 1 Vw [id number] 07:06:35Hm Interface, Radiology Results Incoming - 03/24/2019 [...] extremity. Peripheral arterial calcifications are also present. [facility]DL-[id number] Hunt
--- OUTSIDE RECORDS SUMMARY | 2020-01-26 23:47 | XMS REPORT | Summary of Care ---
:1945 Author Organization [facility] Address [address] [place] [address] Care Team Providers Name Role Phone Edvin Primary Care Provider Encounter Details Date Type Department Care Team Description 01/20/2020 Letter (Out) [facility] Vascular Surgery- Unknown, At [facility] [address] [facility]th [place] [address] Allergies Active Allergy Reactions Severity Noted Date Comments Apixaban Rash 10/06/2019 Fentanyl Itching, Shortness High 12/23/2019 of Breath Iodine And Iodide Itching, Shortness High 12/23/2019 Containing Products of Breath Morphine Itching 12/23/2019 Clopidogrel Bisulfate Rash 10/06/2019 Oxytetracycline Unknown - See 10/06/2019 Pt states h e blacks comments out Warfarin Rash 10/06/2019 Rivaroxaban Rash 10/06/2019 documented as of this encounter (statuses as of 01/20/2020) Medications Medication Sig Dispensed Refills Start Date End Date Status terazosin 5 mg Take 5 mg by 0 Ac tive capsuleIndications: mouth daily. Non-dialysis days Indications: Non-dialysis days ALPRAZolam (XANAX) 0.5 Take 0.5 mg by 0 Active mg tablet mouth 2 (two) times daily. loperamide HCl Take by mouth 0 Active (IMODIUM ORAL) 4 (four) times daily. acetaminophen 325 mg Take 325 mg by 0 Active tablet mouth every 4 (four) hours as needed. metoprolol succinate Take 3 tablets 180 tablet 1 12/26/2019 Active XL 50 mg 24 hr by mouth 2 tabletIndications: (two) times Lower GI bleed daily for 60 days. calcium carbonate 500 Take 1 tablet 90 tablet 0 12/26/201911/2019 Active mg calcium (1,250 mg) by mouth 3 tabletIndications: (three) times Lower GI bleed daily with meals for 30 days. NIFEdipine ER 30 mg Take 1 tablet 30 tablet 1 12/26/201902/23 Active tabletIndications: by mouth daily Lower GI bleed for 60 days. documented as of this encounter (statuses as of 01/20/2020) Active Problems Problem Noted Date Ischemic colitis 12/23/2019 PVD (peripheral vascular disease) 12/23/2019 Lower GI bleed 12/22/2019 Gastrointestinal hemorrhage, unspecified gastrointesti nal hemorrhage type 12/22/2019 Overview: Added automatically from request for dez de [id number] Acute blood loss anemia 12/22/2019 Overview: Added automatically from request for dez kenisha [id number] documented as of this encounter (statuses as of 01/20/2020) Social History Tobacco Use Types Packs/Day Years Used Date Current Every Day Smoker 2 68 Smokeless Tobacco: Never Used Financial Resource Strain Answer Date Recorded How hard is it for you to pay for the very basics like Not h teodora at all 12/22/2019 food, housing, medical care, and heating? Sex Assigned at Date Recorded Not on file COVID-19 Exposure Response Date Recorded In the last month, have you been in contact with No / Unsure 12/22/2019 4:45 PM CDT someone who was confirmed or suspected to have Coronavirus / COVID-19? documented as of this encounter Last Filed Vital Signs Not on filedocumented in this encounter Plan of Treatment Health Maintenance Due Date Last Done Comments HEPATITIS C (HCV) SCREEN 1945 Depression Screening 1957 DTaP,Tdap,and Td Vaccines (1 - Tdap) 1964 COLON CANCER SCREENING ANNUAL FIT/FOBT 12/05/1995 COLON CANCER SCREENING FIT DNA EVERY 3 YEARS 12/05/1995 COLON CANCER SCREENING SIGMOIDOSCOPY EVERY 5 YEARS 12/05/1995 COLONOSCOPY 12/05/1995 Colorectal Cancer Screening 12/05/1995 Zoster Recombinant Vaccine (SHINGRIX) (1 of 2) 12/05/1995 LUNG CANCER SCREEN: Recommended for age 55-80 with 30 + 12/05/19 01 pack year history Medicare Wellness Visit 2010 PNEUMOCOCCAL VACCINES 65+ (1 of 1 - PPSV23) 2010 INFLUENZA VACCINE (#1) 2019 documented as of this encounter Implants Implanted Type Area Relief Manager Device Shelf Model / Identifier Expiration Serial / Lot Date Right Groin Closure Device Insert Right: Zamora 03/2020 STARCLOSE SE 6FR / Implanted: Qty: 1 on 12/23/2019 at [facility] [employer] [id number] / [id number] documented as of this encounter Results Not on filedocumented in this encounter Insurance Payer Benefit Plan / Subscriber ID Effective Phone Address T ype Group Dates MEDICARE MEDICARE PART [id number] 2010-Pres [phone] Medicare A & B ent [id number] [place] [address] COMMERCIAL COMMERCIAL [id number] 2017-Pres HMO/ PPO/POS NON-CONTRACT NON-CONTRACT ent GENERIC GENERIC documented as of this encounter
--- OUTSIDE RECORDS SUMMARY | 2020-01-26 23:47 | XMS REPORT | Summary of Care ---
:1945 Author Organization [facility] - Health Address [address] [place] [address] Care Team Providers Name Role Phone Edvin Primary Care Provider Reason for Visit Reason Comments Transition Of Care Encounter Details Date Type Department Care Team Description 12/28/2019 Transition of Care [facility] Jada Szymanski RN Transition Of Care [facility]- [address] [place] [phone] Allergies Active Allergy Reactions Severity Noted Date Comments Apixaban Rash 10/06/2019 Fentanyl Itching, Shortness High 12/23/2019 of Breath Iodine And Iodide Itching, Shortness High 12/23/2019 Containing Products of Breath Morphine Itching 12/23/2019 Clopidogrel Bisulfate Rash 10/06/2019 Oxytetracycline Unknown - See 10/06/2019 Pt states h e blacks comments out Warfarin Rash 10/06/2019 Rivaroxaban Rash 10/06/2019 documented as of this encounter (statuses as of 12/29/2019) Medications Medication Sig Dispensed Refills Start Date [...] as of this encounter (statuses as of 12/29/2019) Active Problems Problem Noted Date Ischemic colitis 12/23/2019 PVD (peripheral vascular disease) 12/23/2019 Lower GI bleed 12/22/2019 Gastrointestinal hemorrhage, unspecified gastrointesti nal hemorrhage type 12/22/2019 Overview: Added automatically from request for dez de [id number] Acute blood loss anemia 12/22/2019 Overview: Added automatically from request for dez kenisha [id number] documented as of this encounter (statuses as of 12/29/2019) Social History Tobacco Use Types Packs/Day Years [...] Signs Not on filedocumented in this encounter Miscellaneous Notes Telephone Encounter - Jada Szymanski RN - 12/29/2019 1:20 PM CDT TRANSITIONAL CARE MANAGEMENT ASSESSMENT 12/29/2019 Rosales Sanodval [id number] Rosales Sandoval is a 74 year old /White male was admitted on 12/22/19 to [facility], [address] He was discharged on 12/26/19 with discharge disposition of HR- Routine Discharge. Admitting Physician: Rudy Billings Discharge Diagnosis: Ischemic colitis Linked Episodes Type: Episode: Status: Noted: Resolved: Last update: Updated by: TRANSITION OF CARE TCM Active 12/28/2019 12/28/2019 9:30 AM Jada Szymanski RN Comments: TCM [id number] outreach documentation: Discharge Assessment Chart Assessed: 12/28/19 Transition CM attempted to contact patient x2. Unable to leave voicemail. Mailbox not set up/full/patient is unavailable. ZENY Bustillos, RN-BC, CCRN Transition Top Icer Clinician IV Transitions of Care Management Team Office: [phone] [email or web address] Encounter - Jada Szymanski RN - 12/28/2019 9:30 AM CDTCM unable to LM, "customer not available at this time". Will attempt again at a later time. ZENY Bustillos, RN-BC, CCRN Transition Top Icer Nurse Clinician IV Care Management Team Office: [phone] [email or web address] documented in this encounter Plan of Treatment Health [...] of this encounter Implants Implanted Type Area Block Paver Device Shelf Model / Identifier Expiration Serial / Lot Date Right Groin Closure Device Insert Right: Zamora 03/2020 STARCLOSE SE 6FR / Implanted: Qty: 1 on 12/23/[address] [facility] [employer] [id number] / [id number] documented as of this encounter Results Not on filedocumented in this encounter Insurance Payer Benefit Plan / Subscriber ID Effective Phone Address T ype Group Dates MEDICARE MEDICARE PART [id number] 2010-Pres [phone] Medicare A & B ent [id number] [place] [address] COMMERCIAL COMMERCIAL [id number] 2017-Pres HMO/ PPO/POS NON-CONTRACT NON-CONTRACT ent GENERIC GENERIC documented as of this encounter
--- OUTSIDE RECORDS SUMMARY | 2020-01-26 23:47 | XMS REPORT | Summary of Care ---
:1945 Author Organization [facility] Address [address] [place], [place] [id number] Care Team Providers Name Role Phone Edvin Primary Care Provider Reason for Referral (Routine) Status Reason Specialty Diagnoses / Referred By Referred To Procedures Contact Contact New Request IM-GASTROENTEROLO Diagnoses Lower GI bleed Hommel, Lauryn GY Procedures Discharge Follow-Up: Specialty Service IM-GASTROENTEROLOGY; 4-6 Weeks MD Keila [address] [place] [address] (Routine) Status Reason Specialty Diagnoses / Referred By Referred To Procedures Contact Contact New Request DEZ-VASCULAR Diagnoses Lower GI bleed Hommel, Lauryn SURGERY Procedures Discharge Follow-Up: Specialty Service DEZ-VASCULAR SURGERY; 4-6 Weeks MD Keila [address] [place] [id number] (Routine) Status Reason Specialty Diagnoses / Referred By Referred To Procedures Contact Contact New Request Diagnoses Lower GI bleed Hommel, Lauryn Joaquín Pardo V Procedures Discharge Follow-up: PCP JOAQUÍN PARDO V; 1 Week MD Keila [address] [place] [address] [place] [address] Phone: (NAVYA) Status Reason Specialty Diagnoses / Referred By Referred To Procedures Contact Contact New Request Diagnostic Diagnoses Lower GI bleed Wilmar Felix, Radiology Procedures IR ANGIOGRAM VISCERAL CONSULT INTERVENTIONAL RADIOLOGY [address] [place] [id number] MRI/CAT Scan (STAT) Status Reason Specialty Diagnoses / Procedures Referred By Silvana escamilla To Contact Contact New Request Diagnostic Diagnoses Gastrointestinal hemorrhage, unspecified gastrointestinal hemorrhage type Quintana, Radiology Procedures CT ABDOMEN PELVIS W WO CONTRAST CT ANGIOGRAM ABDOMEN/PELVIS Fei [address] [place] [id number] Reason for Visit Reason Comments GI Problem Auth/Cert Status Reason Specialty Diagnoses / Referred By Referred To Procedures Contact Contact Emergency Medicine Diagnoses GI BLEED [facility] Emergency Dept [address] [place] [address] Fax: Encounter Details Date Type Department Care Team Description 12/22/2019 - Hospital Encounter Acute Care for the Heather Quintana, [address] [place] [id number] Lower GI bleed 12/26/2019 Elderly (ALCIDES 11D) Rudy Billings MD [address] [facility] [id number] [place], [place] [id number] 2 [facility] Lauryn Harmon MD [address] [facility] [id number] [place], [place] [id number] [place], [place] [id number] Allergies Active Allergy Reactions Severity Noted Date Comments Apixaban Rash 10/06/2019 Fentanyl Itching, Shortness High 12/23/2019 of Breath Iodine And Iodide Itching, Shortness High 12/23/2019 Containing Products of Breath Morphine Itching 12/23/2019 Clopidogrel Bisulfate Rash 10/06/2019 Oxytetracycline Unknown - See 10/06/2019 Pt states h e blacks comments out Warfarin Rash 10/06/2019 Rivaroxaban Rash 10/06/2019 documented as of this encounter (statuses as of 12/26/2019) Medications Medication Sig Dispensed Refills Start Date End Date Status terazosin 5 mg Take 5 mg by 0 Ac tive capsuleIndications mouth daily. : Non-dialysis Indications: days Non-dialysis days ALPRAZolam (XANAX) Take 0.5 mg 0 Active 0.5 mg tablet by mouth 2 (two) times daily. loperamide HCl Take by 0 Activ e (IMODIUM ORAL) mouth 4 (four) times daily. acetaminophen 325 Take 325 mg 0 Active mg tablet by mouth every 4 (four) hours as needed. metoprolol Take 3 180 tablet 1 12/26/2019 Active succinate XL 50 mg tablets by 0 24 hr mouth 2 tabletIndications: (two) times Lower GI bleed daily for 60 days. calcium carbonate Take 1 90 tablet 0 12/26/2019 A ctive 500 mg calcium tablet by 0 (1,250 mg) mouth 3 tabletIndications: (three) Lower GI bleed times daily with meals for 30 days. ciprofloxacin HCl Take 1 2 tablet 0 12/26/2019 A ctive 500 mg tablet by 0 tabletIndications: mouth every Lower GI bleed 24 (twenty-four ) hours for 2 days. metroNIDAZOLE 500 Take 1 6 tablet 0 12/26/2019 A ctive mg tablet by 0 tabletIndications: mouth every Lower GI bleed 8 (eight) hours for 2 days. NIFEdipine ER 30 Take 1 30 tablet 1 12/26/2019 Ac tive mg tablet by 0 tabletIndications: mouth daily Lower GI bleed for 60 days. metoprolol Take 150 mg 0 Discont inued succinate XL 100 by mouth 2 0 mg 24 hr tablet (two) times daily. NIFEdipine ER 30 Take 30 mg 0 Di scontinued mg tablet by mouth 2 0 (Reorder) (two) times daily. documented as of this encounter (statuses as of 12/26/2019) Active Problems Problem Noted Date Ischemic colitis 12/23/2019 PVD (peripheral vascular disease) 12/23/2019 Lower GI bleed 12/22/2019 Gastrointestinal hemorrhage, unspecified gastrointesti nal hemorrhage type 12/22/2019 Overview: Added automatically from request for dez ramseyy [id number] Acute blood loss anemia 12/22/2019 Overview: Added automatically from request for dez de [id number] documented as of this encounter (statuses as of 12/26/2019) Social History Tobacco Use Types Packs/Day Years Used Date Current Every Day Smoker 2 68 Smokeless Tobacco: Never Used Tobacco Cessation: Ready to Quit: No; Co unseling Given: No Financial Resource Strain Answer Date Recorded How [...] of this encounter Last Filed Vital Signs Vital Sign Reading Time Taken Comments Blood Pressure 159/77 12/26/2019 11:52 AM CDT Pulse 81 12/26/2019 11:52 AM CDT Temperature 35.2 C (95.4 F) 12/26/2019 11:52 AM CDT Respiratory Rate 16 12/26/2019 11:52 AM CDT Oxygen Saturation 95% 12/26/2019 4:15 AM CDT Inhaled Oxygen Concentration - - Weight 72.4 kg (159 lb 9.8 oz) 12/26/2019 11:52 AM CDT Height 172.7 cm (5' 8") 12/23/2019 8:37 AM CDT Body Mass Index 24.27 12/23/2019 8:37 AM CDT documented in this encounter Progress Notes Alee Morgan OT - 12/26/2019 10:26 AM CDT1 1026 OCCUPATIONAL THERAPY NOTE: Consult received. Patient away for HD. Will follow-up as time permits. MARIZA Jain, DOMINGO, C/NDT Pager [phone] Adriana Brock OT - 12/25/2019 2:53 PM CDT1 1453 Occupational Therapy Note: OT consult received, chart reviewed. Patient wanting to rest this PM and declining participation in out of bed activity this PM per PT note. OT will follow up as schedule allows. Thank you. Marielena Downs OTR/Kimber, MSOT pager number: [phone] Anai Sheriff RN - 12/25/2019 2:09 PM CDTCare Management Note 12/25/2019 2:10 PM CC attempted phone call to patient's significant other, Sharmin Knox [phone], no answer;LM.CC to call back at a later time. Attempt to discuss discharge transportation with inclement weather approaching. Anai Gavin, RN, BSN Store Administrator [facility] Care Management Office: [phone] (Not For Patient Use) [email or web address] Lily Mendes PT - 12/25/2019 1:41 PM CDTPT note: Consult received, chart reviewed. Attempted PT evaluation, however patient sleeping upon arrival andstates "it takes an hour for me to wake up." Educated patient on PT services and importance of mobility during hospitalization. Pt admits to being weak and having difficulty with mobility, however would like to rest at this time. "I've got to get my gut straightened out first." Will follow up another time. Thank you. Lily Mendes, PT, DPT Pager # [phone] Jm Gavin DO - 12/24/2019 9:09 PM CDT Handy Team Progress/Acceptance Note Date of Service: 12/25/2019 05:37 Chief Complaint: LGIB 24-HOUR EVENTS: -Transferred to [place] -Hgb 7.7-->8.0-->8.9 Hospital Course: Rosales Sandoval is a 74 year old malewith a PMH ofAfib (not on AC),ESRD (HD MWF), CAD, and extensive PVDwho [place] ofbright redbloodper rectum and significant abdominal pain. Patient's Hb was 7.6, and was transferred 1u of pRBC. S/p Hb was 8. Abdominal CTA showed active GI bleeding site confirmed in the splenic flexure region. He was transferred to [facility] for IR embolization. Patient was transfused additional unit. GI was consulted and read contained perforation. Patient was started on broad spectrum antibiotics. General surgery was consulted and assess cause to be ischemic colitis causing lower GI bleed with possible microperforation. IR preformed angiography but was unable to find bleed. Surgery recommended Hb >9 and SBP >140. Patient was transfused 1u pRBCs and given IVF. Patient's abdominal pain improved and patient remainedhemodynamically stable. Patient was was able to transition to regualr diet. PHYSICAL EXAM: Vitals: 12/24/19 1900 12/24/19201512/24/19 2330 12/25/19 0345 BP: (!) 143/62 121/60 137/79 (!) 140/66 BP Location: Left arm Left leg Left leg Patient Position: Supine Supine Supine Pulse: 90 86 83 81 Resp: 16 18 18 18 Temp: 37.1 C (98.8 F) 36.4 C (97.6 F) 36.6 C (97.8 F) TempSrc: Oral Oral Oral SpO2: 96% 95% 94% 96% Weight: Height: Intake/Output Summary (Last 24 hours) at 12/25/2019 0537 Last data filed at 12/24/2019 1800 Gross per 24 hour Intake 1081 ml Output Net 1081 ml General: alert and oriented x 4 (person, place, date/time and situation); no apparent distress Lungs: clear to auscultation bilaterally Cardio: S1, S2 normal; 4/6 systolic murmur Abdomen: soft; non-tender; non-distended; normoactive bowel sounds Extremities: no clubbing, cyanosis, or edema Skin: no rashes Neuro: no focal deficits LABS/IMAGING - reviewed ASSESSMENT/PLAN Rosales Sandoval is a 74 year old male admitted to the hospital with: LGIB 2/2 Ischemic colitis with possible microperforation SMA Stenosis s/p stent Normocytic anemia HTN Afib (Not on AC) Patient originally presenting with bloody diarrhea and abdominal pain since found to be secondary toIschemic colitis with likely microperforation. GI defer scope at this time with concern for worsen perforation. Patient s/p 3u of pRBC's with Hgb As low as 6.9 this admission, last value at 8.9. Will de-escalate Merrem to Cipro and continue with IV flagyl. -Transfer to [place] -c/w H/H Q12H -Keep Hgb >7 transfuse if needed -Start IV Cipro 200mg Q12H (renaly Dosed) -c/w IV Flagyl 500mg Q8H -c/w IV Protonix 40mg Q12H -GI following -Contact IR with further bleeding -continue holding BP meds ESRD AVF banding for steal syndrome Nephrology following for HD needs M/W/. -Renally dose medications -Nephrology following -GI recommends low UF in the setting of GIB PAIN: Improved Tylenol Prophylaxis: DVT- Contraindicated: Cranial/GI Bleeding or other Hemorrhage present Stress Ulcer: pantoprazole Code Status: addressed: Full Jm Gavin DO PGY3 - Internal Medicine Doctor's #: [id number] Pager: [phone] END OF DAILY PROGRESS NOTE CURRENT MEDICATIONS - reviewed. Current Facility-Administered Medications Medication Dose Route Frequency Last Rate Last Dose ciprofloxacin in 5 % dextrose (CIPRO) piggyback 200 mg 200 mg IV Piggyback Q12H ABX ALPRAZolam (XANAX) tablet 0.25 mg 0.25 mg Oral BIDPRN 0.25 mg at 12/24/192051 acetaminophen-codeine (TYLENOL #3) 300-30 mg tablet 2 tablet 2 tablet Oral Q4HPRN 2 tablet at1 1307 dextrose 50 % in water (D50W) injection 25 mL 25 mL Slow IV Push PRN 25 mL at 12/23/192225 glucagon (GLUCAGEN DIAGNOSTIC KIT) injection 1 mg 1 mg Intramuscular PRN melatonin (MELATIN) tablet 3 mg 3 mg Oral QHS 3 mg at 12/24/192051 metroNIDAZOLE in NaCl (iso-os) (FLAGYL I.V.) RTU IV infusion 500 mg 500 mg IV Piggyback Q8H ABX 500 mg at 12/25/19 005 nicotine (NICODERM) 21 mg/24 hr patch 1 Patch 1 Patch Topical Q24H 1 Patch at 12/24/192051 pantoprazole (PROTONIX) 40 mg in NaCl 0.9% (NS) 100 mL MINI-BAG 40 mg IV Piggyback Q12H 40 mgat 12/24/191937 Cheng Snider MD - 12/24/2019 5:47 PM CDTSrosie: Brief MICU Transfer Note Date: 12/24/2019 ICU day: 2 Intubation Day: N/A Code Status: Full Code Hospital Course: Rosales Sandoval is a 74 year old malewith a PMH ofAfib (not on AC),ESRD (HD MWF), CAD, and extensive [place]who [place] of[place] redbloodper rectum and significant abdominal pain. Patient's Hb was 7.6, and was transferred 1u of pRBC. S/p Hb was 8. Abdominal CTA showed active GI bleeding site confirmed in the splenic flexure region. He was transferred to [facility] for IR embolization. Patient was transfused additional unit. GI was consulted and read contained perforation. Patient was started on broad spectrum antibiotics. General surgery was consulted and assess cause to be ischemic colitis causing lower GI bleed with possible microperforation. IR preformed angiography but was unable to find bleed. Surgery recommended Hb >9 and SBP >140. Patient was transfused 1u pRBCs and given IVF. Patient's abdominal pain improved and patient remainedhemodynamically stable. Patient was was able to transition to regualr diet. 12 Hour Events: - General surgery evaluated patient, no surgical intervention - Blood cultures negative at 24hr Family update: - None 12 Hour Plan: - TTF - Continue antibiotics, consider narrowing - Trend Hb Q8H, transfuse >9 - If possible, SBP >140 and follow-up with nephrology to ensure SBP >130 during HD - Monitor for recurrence/worsening of abdominal pain and/or hematochezia/melena - STAT IR/GI page if bleed recures - STAT General Surgery page if patient developed valentina peritonitis - Advance diet as tolerated - Follow-up with general surgery and GI recs - Follow-up with nephrology recs for HD Cheng Snider MD [phone] ayahLiane MD - 12/24/2019 2:31 PM CDTGI Service Progress Note Date of Service: 12/24/2019 SUBJECTIVE: Patient resting in bed, tolerating a diet. No BM since admission. Abdominal pain resolved. CURRENT MEDICATIONS - reviewed. PHYSICAL EXAM: PE: BP 114/49 | Pulse 80 | Temp 37.1 C (98.8 F) (Tympanic) | Resp 15 | Ht 1.727 m (5' 8") | Wt 74 kg (163 lb 2.3 oz) | SpO2 95% | BMI 24.81 kg/m General: awake and alert, NAD HEENT/Eye: pupils equal, EOMI Neck: supple, no JVD Cardiovascular: RRR Respiratory: non-labored Gastrointestinal: soft, NT, ND, BS present Ext: no edema Skin: no lesions Neurologic: grossly non-focal Psychiatric: appropriate LABS/IMAGING - reviewed, pertinent results as below: Hgb 7.6-->1u-->8.0-->6.9-->1u-->8.2 WBC 10.2, Hct 24.9, MCV 86.8, Plt 129 ASSESSMENT/PLAN Rosales Sandoval is a 74 year old male with PMH CAD, PVD, SMA stenosis s/p stent placement, ESRD on HD, AVF banding for steal syndrome (05/2019x 2), presented with bloody diarrhea and abdominal pain. Patient underwent IR angiography with no extravasation or bleeding source identified. Remains HDS with stable hemoglobin. There is concern of possible contained perforation on imaging therefore will hold off on performing colonoscopy at this time. No further bleeding since admission. No evidence of active extravasation on CT angio. Hematochezia DDx includes ischemic colitis vs diverticular bleed with microperforation. - keep 2 large bore IV lines - monitor Hgb q8h, transfuse to maintain Hgb >7 - will hold off on colonoscopy given concern for microperforation - monitor pace and character of BM. If patient rebleeds or develops hemodynamic instability contact GI fellow and IR legislative correspondent. May require repeat CT angio Patient seen and discussed with faculty Dr. Hernández GI service will sign off. Notify fellow with further questions. Liane Lopez MD Gastroenterology and Hepatology Fellow Pager #[phone] Associated attestation - Antonio Hernández MD - 12/25/2019 7:49 AM CDTI personally examined the patient on 12/24/[address] Lopez's resident/fellow note as written . I actively participated in the decision- making process. Please see the resident's note for additional details. Caio Laws MD - 12/24/2019 9:53 AM CDT TAC SURGERY PROGRESS NOTES Date of Service: 12/24/2019 Chief Complaint: Abdominal pain Mechanism of Injury/Reason for Acute Illness: Ischemic colitis with lower GI bleed EVENTS/Interventions past 24 hours: Patient's pain is greatly improved from yesterday. He states hewants crum, eggs, and toast and wants to go home tomorrow. OBJECTIVE: Vitals: Temp: [35.6 C (96 F)-36.8 C (98.2 F)] Heart Rate (monitor): [59-79] Pulse: [60-92] Resp: [8-34] BP: (100-181)/(43-108) MAP (mmHg): [61-115] I/O: Intake/Output Summary (Last 24 hours) at 12/24/2019 0953 Last data filed at 12/23/2019 2100 Gross per 24 hour Intake 240 ml Output 2000 ml Net -1760 ml PE: General: NAD HEENT: negative, no deformities Respiratory: no respiratory distress Cardio: RRR Abdomen: soft, mildly distended, tenderness to palpation only in the LUQ on deep palpation Musculoskeletal: No peripheral edema noted Skin: No rashes noted Neurologic: negative, GCS 15 Lab CBC BMP PT/INR WBC (10*3/L) Date Value 12/24/2019 6.89 NA (mmol/L) Date Value 12/24/2019 131 (L) No results found for: PT RBC (10*6/L) Date Value 12/24/2019 2.69 (L) K (mmol/L) Date Value 12/24/2019 4.2 INR (no units) Date Value 12/24/2019 1.1 PLT (10*3/L) Date Value 12/24/2019 138 (L) CALCIUM (mg/dL) Date Value 12/24/2019 8.0 (L) HGB (g/dL) Date Value 12/24/2019 7.7 (L) CL (mmol/L) Date Value 12/24/2019 95 (L) aPTT HCT (%) Date Value 12/24/2019 23.3 (L) BUN (mg/dL) Date Value 12/24/2019 29 (H) APTT Patient (Seconds) Date Value 12/24/2019 31 CREATININE (mg/dL) Date Value 12/24/2019 6.00 (H) GLUCOSE (mg/dL) Date Value 12/24/2019 67 (L) CO2 TOTAL (mmol/L) Date Value 12/24/2019 30 Medications: Current Facility-Administered Medications Medication Dose Route Frequency Last Rate Last Dose acetaminophen-codeine (TYLENOL #3) 300-30 mg tablet 2 tablet 2 tablet Oral Q4HPRN 2 tablet at1 0354 ALPRAZolam (XANAX) tablet 0.5 mg 0.5 mg Oral BID 0.5 mg at 12/23/19 2110 D5W IV infusion 1,000 mL 1,000 mL IV Infusion CONTINUOUS 20 mL/hr at 12/23/19 2234 1,000 mL at 12/23/19 2234 bisacodyL (DULCOLAX) tablet 10 mg 10 mg Oral PRE-PROCEDURE ONCE Stopped at 12/23/19 0712 bisacodyL (DULCOLAX) tablet 10 mg 10 mg Oral PRE-PROCEDURE ONCE Stopped at 12/23/19 0711 dextrose 50 % in water (D50W) injection 25 mL 25 mL Slow IV Push PRN 25 mL at 12/23/19 2226 glucagon (GLUCAGEN DIAGNOSTIC KIT) injection 1 mg 1 mg Intramuscular PRN melatonin (MELATIN) tablet 3 mg 3 mg Oral QHS Stopped at 12/22/19 2100 meropenem (MERREM) 500 mg in NaCl 0.9% (NS) 100 mL MINI-BAG 500 mg IV Piggyback Q24H ABX 500 mg at 12/23/19 2130 metroNIDAZOLE in NaCl (iso-os) (FLAGYL I.V.) RTU IV infusion 500 mg 500 mg IV Piggyback Q8H ABX 500 mg at 12/24/19 0909 nicotine (NICODERM) 21 mg/24 hr patch 1 Patch 1 Patch Topical Q24H 1 Patch at 12/23/192112 ondansetron (ZOFRAN (PF)) injection 4 mg 4 mg Slow IV Push Q6HPRN pantoprazole (PROTONIX) 40 mg in NaCl 0.9% (NS) 100 mL MINI-BAG 40 mg IV Piggyback Q12H 40 mgat 12/24/19 0909 peg-electrolyte soln (GOLYTELY) 236-22.74-6.74 -5.86 gram solution 2,000 mL 2,000 mL Oral PRE-PROCEDURE ONCE Stopped at 12/23/19 0537 peg-electrolyte soln (GOLYTELY) 236-22.74-6.74 -5.86 gram solution 2,000 mL 2,000 mL Oral PRE-PROCEDURE ONCE Stopped at 12/23/19 0536 INJURIES/PROBLEMS/DIAGNOSES and TREATMENT PLAN: Active Problems: Lower GI bleed Gastrointestinal hemorrhage, unspecified gastrointestinal hemorrhage type Acute blood loss anemia Ischemic colitis PVD (peripheral vascular disease) Rosales Sandoval is a 74 year old male with ischemic colitis causing lower GI bleed and possibly microperforation. 1. Okay for regular diet as tolerated 2. Agree with transfusion 3. Nephrology will need to contact his outpatient dialysis to ensure his pressures do not drop during dialysis and the least amount of ultrafiltration is done Caio Laws MD, [facility] General Surgery Resident Personal Pager: [phone] Associated attestation - Jm Holloway MD - 12/24/2019 11:05 AM CDTI reviewed the patient's chart and examined the patient on 12/24/[address] Laws'snote as written. I actively participated in the decision-making process. Please see the resident'snote for additional details. Advance diet as tolerated Avoid hypotension with HD MD Hadley Ridley Shellie, [facility] - 12/24/2019 9:22 AM CDTCare Management Social Functional Assessment Patient Name: Rosales Sandoval Age: [age] year old Sex: male Previous admit date: N/A Current diagnosis and co-morbidities: GI BLEED Social Functional Assessment: Primary language spoken/preferred: Polish Mental Status: Alert & Oriented to Person,Place & Time Information given by: Self Patient's support system: Spouse Name and number of support system: sig martina Carmenza Abilio [phone] Primary Beater Out Leveling Machine: Self MPOA: Same as support system(requested a copy of MPOA -Sharmin Mendoza Abilio -states been together for than 10 yrs) Living Arrangement: Home Address of living arrangement : [address] [place] [phone] Persons living in home: Self;Same as support system Barriers to returning home: None Baseline functional status- ambulation: Requires minimal to moderate assistance Functional status-baseline personal care: Requires minimal to moderate assistance Baseline functional status- driving: Independent Baseline functional status- grocery shopping: Dependent Functional status-baseline housekeeping: Dependent Functional status-baseline meal prep: Other Other meal preparation: they order out Current functional status same as prior: Yes Do you have a PCP?: Yes Name of PCP: Dr Joaquín Pardo Home [facility] Care Agency: No Provider Services: No DME Company: No Equipment: Cane;Other Other equipment: shower stool, blood pressure cuff, Hemodialysis: Yes Dialysis Schedule: [facility] Dialysis Time: 0500 Mode of Transportation: Self(or Sharmin Mendoza will take him) Last Dialysis date at Dialysis Center: 12/21/19 Community resources utilized: None Funding Resources: Medicare A & B Prescription coverage plan: [facility]: Other Other pharmacy: [facility] Anticipated services prior to disharge: Dialysis;Continue Medical Eval;EGD;Lab Values;PT/OT/ST;Reassess prior to discharge Expected mode of discharge transportation: Same as support system Additional Recommendations for DC: rom Sharmin mack Abilio [phone] Additional info required for discharge planning: No needs identified Recommended discharge plan: Home SFA Complete: Social Functional Assessment complete: Yes Alcohol Use Screening (AUDIT-C) How often do you have a drink containing alcohol?: Never SCORE: 0 Any issues or concerns with obtaining/affording your medications at home: no. Are you or your support system able to pick up truck driver medications at discharge: yes. Describe: .sig other,Sharmin Knox [phone] Role of Care Management explained. Pt states Sharmin Mendoza will around to assist. Pt states they have ahousekeeper that comes every other week and they order out their meals. SW requested a copy of MPOA. Pt states Sharmin Knox is his MPOA. Dialysis Center: [facility] [address] [facility] [address] and phone [phone] USHA Mayes Client Relations Specialist/Care Management Office [phone] Jada Alejo MD - 12/24/2019 12:36 AM CDT MICU Progress Note Date of Service: 12/24/2019 00:36 Reason for ICU admission: lower GIB ICU Day: 1 Intubation Day: n/a Code Status: Full Last 24 hour events (major events): - s/p HD with 2L removed - IR found no acute bleeding - Hgb stable Subjective: Patient continues to report left sided abdominal pain. Pain resolves with norco. He otherwise deniessymptoms and is tired of being bothered. Intake/Output Summary (Last 24 hours) at 12/24/2019 0036 Last data filed at 12/23/2019 2100 Gross per 24 hour Intake 1286 ml Output 2000 ml Net -714 ml Physical Exam: Temp: [35.6 C (96 F)-36.8 C (98.2 F)] Heart Rate (monitor): [64-82] Pulse: [54-93] Resp: [8-34] BP: (100-184)/(33-108) MAP (mmHg): [56-115] Constitutional: alert and oriented x 4; no apparent distress HEENT: normocephalic atraumatic Resp: clear to auscultation bilaterally Cardio: regular rate and rhythm; systolic murmur appreciated GI: soft; TTP in left abdomen; non-distended; normoactive bowel sounds MSK: no clubbing, cyanosis, or edema Integ: no rashes Neuro: no focal deficits Labs (pertinent only)/Imaging: Reviewed Microbiology: Bcx pending Assessment/Plan: Rosales Sandoval is a 74 year old male admitted with Neuro No Acute Problem Patient has not had a change in mental status. Will monitor. Pulmonary No Acute Problem Patient is saturating. Will monitor vitals and O2 saturation. -O2 per protocol Cardiovascular/Hematological: Normocytic Anemia Afib CAD PVD HTN After multiple episodes ofhematochezia, patient was transfused.Patient's Hb chung from 7.6 to 8, inappropriate response.Patienthas significant ASCVD history and had active bleed. Heis currentlyhemodynamically stable without signs of shock. Patient had Hgb drop from 8.0 > 6.9 overnight. IR embolization 12/22 showed no areas of active bleeding. -monitor for bleeds. -hold antiHTN meds -f/u repeat HH GI/Nutrition: Active GIB at Splenic Flexure Evolving Perotinitis? SMA Stenosis s/p Stent Patient hadmultiple episodes of hematochezia prior to admission and an episode ofmaroon stool/current jelly stool. CT shows active bleed at the splenic flexure. IR and GI consulted. IR embolization 12/22 showed no areas of active bleeding. - NPO - Follow-up with IR - Follow-up with GI - Pantoprazole BID Renal/Electrolytes/Fluids: ESRD MWF Fistula s/p Stenting LUE Steal Syndrome s/p Bnading Nephrology consulted to initiate HD -Follow-up with Nephrology consult for HD scheduling Last HD 12/23/19: UF -2L Infectious Diseases: AbdomenPain Leukocytosis Physical exam significant for tense abdomen. Patient has tenderness to deep palpation in the ULQ. His WBC is elevated at 13.26. CT was significant for a small amount of free fluid in the abdomen and around the liver, but no valentina air/perforation.Will monitor vitals,WBC trend, and overall clinical p icture.Will start the patient on broad spectrum antibiotics to target gram negative rods and anaerobes. -[id number] QD - Metronidazole 500mg Q8H - Follow-up with blood cultures Endocrine: No active issues Jada Morgan MD Internal Medicine, PGY2 Preemption Team Pager#[phone] Hospital Course Rosales Sandoval is a 74 year old malewith a PMH ofAfib (not on anticoagulants),ESRD (HD MWF, last session yesterday), SMA stenosis s/p stent placement, AVF banding for steal syndrome(05/2019),HTN,CAD, and PVD,[place]. Hgb 7.6 > 8.0 after [address] showed active GI bleeding site confirmed in the splenic flexure region. Patient has remained hemodynamically stable. Hgb dropped to 6.9 overnightwith no overt bleeding, remaining hemodynamically stable.S/p IR 12/22 but no areas of active bleeding found. Associated attestation - Vinicius Angel DO - 12/24/2019 11:03 AM CDTI personally examined the patient on 12/24/[address] Morgan's resident note as written . I actively participated in the decision-making process. Please see the resident's note for additional details. Acute lower GI bleed stable. Possible microperforation. ESRD. C/w antibiotics C/w HD Transfer to floor Vinicius Angel DO Interventional Pulmonology Tiki Butcher LBSW - 12/23/2019 3:03 PM CDTSocial Work Note 12/23/2019 3:03 PM SW attempted to do Social Functional Assessment. Pt not available. SW to re- attempt at later time. USHA Mayes Client Relations Specialist/Care Management Office [phone] Cheng Snider MD - 12/23/2019 1:06 PM CDT Brief MICU Note Date: 12/23/2019 13:06 ICU day: 2 Intubation Day: N/a Code Status: Full 12 Hour Events (should include: major events throughout the day, patient status, significant labs, radiology, consult updates): - IR found no active site of bleeding - Hb 8.2 s/p 1 unit pRBC overnight - Gen surg consulted - will follow closely - HD today Plan for next 12 hours (should include: anticipated events, complications to watch for, pending labs/radiology/consults): - go back to IR for new episodes of bleeding - monitor H/H, transfuse for Hb<7 - F/u gen surg recs Leena Klaus Roxanne [facility] MS4 I personally examined the patient on 12/23/19 and have verified the medical student's documentation and/or findings, including the history, physical exam, and medical decision making. Additionally, I have personally performed or re- performed the physical exam and medical decision making activities of this patient's evaluation and management service. Cheng Snider MD Internal Medicine PGY-1 Preemption Team #[id number] [email or web address] signed by Cheng Snider MD at 12/23/2019 6:52 PM CDTSCaio arellano MD - 12/23/2019 12:22 PM CDT TAC Chief Note Date 12/23/2019 S: Rosales Sandoval is a 74 year old /white male with past medical historyof COPD, CAD, PVD with SMA stenosis s/p stent placement as well as aortobifemoral bypass, ESRD on HD, who presents with complaints ofbloody diarrhea that began early in the morning and persisted throughout the morning so he went to the ER in [facility]. He has had months of intermittent abdominal cramping and diarrhea. Since Saturday he has had worsening abdominal pain, and increasing amounts of blood in his stools. CT scan showed active extravasation in the splenic flexure and possible microperforation of the colon. History reviewed. No pertinent past medical history. History reviewed. No pertinent surgical history. Social History O: Vitals: 12/23/19 1020 12/23/19 1025 12/23/19 1030 12/23/19 1100 BP: (!) 154/65 (!) 147/64 (!) 157/62 (!) 181/69 Pulse: 82 79 78 80 Resp: 15 11 16 Temp: 36.8 C (98.2 F) TempSrc: Tympanic SpO2: 96% 96% 100% 100% Weight: Height: PE: Gen: GCS 15, NAD Abdomen: soft, mildly distended, moderate tenderness to palpation on deep palpation in all four quadrants, no signs of peritonitis or involuntary guarding A/P: Rosales Sandoval is a 74 year old male with ischemic colitis causing lower GI bleed and possible microperforation of the splenic flexure of the colon; bowel wall thickening throughout - Has chronic thrombotic mesenteric ischemia and must avoid low flow states, Maintain blood pressure>140 systolic if possible - Monitor dialysis closely and should not drop below systolic of 130 - arterial boluses as needed - Maintain hemoglobin at 9, epogen - Discussed in detail with the patient regarding surgery, he initially was reluctant but after speaking with his they would proceed with operation in emergent setting. Patient not showing signs of peritonitis and therefore we will do serial abdominal exams to assess for improvement. Caio Laws MD, [facility] General Surgery Resident Personal Pager: [phone] Trauma/Acute Care Pager: Associated attestation - Jm Holloway MD - 12/23/2019 2:39 PM CDTJoMD Hussein Butler Alexis, MD - 12/23/2019 12:00 PM CDT BRIEF VASCULAR SURGERY PROGRESS NOTE DOA: 12/22/2019 Date of Service: 12/23/2019 Assessment/Plan: Rosales Sandoval is a 74 year old malewith a PMH ofAfib (not on anticoagulants),ESRD (HD MWF, last session yesterday), SMA stenosis s/p stent placement about 10 years ago, AVF banding for steal syndrome(05/2019),HTN,CAD s/p PCI in 2018, and 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 CTA of abdomen today was significant for active extravasation on arterial and venous phases and ischemic colitis at the splenic flexure. Vascular was consulted to evaluate for embolization. He has been hemodynamically stable throughout the night with SBP ranging from 122-168 mmHg and MAPs ranging from 65-76, HR range from 71-80. S/p 2U pRBCs with Hgb 8.2. IR took him for mesenteric angiogram this morning with no findings of active extravasation. Vascular will be available if needed, but all questions regarding his procedure and management should be directed to IR and his primary team. LABORATORY/ IMAGING: Temp: [36.2 C (97.2 F)-37.6 C (99.7 F)] Heart Rate (monitor): [68-84] Pulse: [54-93] Resp: [10-34] BP: (74-184)/(33-89) MAP (mmHg): [55-98] Recent Labs 12/22/19 1110 12/22/19 1625 12/22/19 2225 12/23/19 0433 WBC 13.26* 13.45* 10.21 10. HGB 7.6* 8.0* 6.9* 8.2* HCT 23.2* 25.1* 21.3* 24.9* PLT 150 137* 130* 129* Recent Labs 12/22/19 1110 12/23/19 0734 NA 132* 132* K 4.3 5.2* CL 88* 91* TCO2 35* 32* BUN 34* 47* CREAT 8.09* 8.47* GLU 99 54* CA 9.4 8.1* Recent Labs 12/22/19 1111 PTPAT 15.6* PTINR 1.3 APTTPAT [address] Joseph on 12/23/2019. Mati Savage MD PGY-1, Vascular Surgery 12/23/2019 Vascular Pager: [phone] Associated attestation - Kathy Joseph MD - 12/23/2019 1:09 PM CDTI discussed the patient with Dr. Savage on 12/23/2019. I agree with the note as detailed by Dr. Savage. I actively participated in the decision-making process regarding the assessment and plan of care.Please see the resident's note for additional details. Kathy Joseph MD, [facility] Vascular Surgery Dayah, Liane Greco MD - 12/23/2019 8:16 AM CDTGI Service Progress Note Date of Service: 12/23/2019 SUBJECTIVE: Patient states he has a history of pancreatic pseudocyst s/p ?drainage years ago undergoing IR angio and possible embolization this morning - showed significant vascular disease andstenosis of Lt renal artery. SMA angiography patient. No active extravasation noted. CURRENT MEDICATIONS - reviewed. PHYSICAL EXAM: PE: BP (!) 155/45 | Pulse 78 | Temp 36.7 C (98.1 F) (Tympanic) | Resp 11 | Ht 1.727 m (5' 8") |Wt 75 kg (165 lb 5.5 oz) | SpO2 93% | BMI 25.14 kg/m General: awake and alert, NAD HEENT/Eye: pupils equal, EOMI Neck: supple, no JVD Cardiovascular: RRR Respiratory: non-labored Gastrointestinal: soft, tender LLQ, ND, BS present Ext: no edema Skin: no lesions Neurologic: grossly non-focal Psychiatric: appropriate LABS/IMAGING - reviewed, pertinent results as below: Hgb 7.6-->1u-->8.0-->6.9-->1u-->8.2 WBC 10.2, Hct 24.9, MCV 86.8, Plt 129 ASSESSMENT/PLAN Rosales Sandoval is a 74 year old male with PMH CAD, PVD, SMA stenosis s/p stent placement, ESRD on HD, AVF banding for steal syndrome (05/2019x 2), presented with bloody diarrhea and abdominal pain. Patient underwent IR angiography with no extravasation or bleeding source identified. Remains HDS with stable hemoglobin. There is concern of possible contained perforation on imaging therefore will hold off on performing colonoscopy at this time. Hematochezia Ischemic colitis vs. Diverticular bleed. No evidence of active extravasation on CT angio. - 2 large bore IV lines - monitor Hgb q6-8h, transfuse to maintain Hgb >7 - will hold off on colonoscopy given concern for contained perforation - monitor pace and character of BM. If patient rebleeds or develops hemodynamic instability contact GI fellow and IR legislative correspondent. May require repeat CT angio Case discussed with faculty Dr. Hernández GI service will continue to follow Liane Lopez MD Gastroenterology and Hepatology Fellow Pager #[phone] Romario Anguiano MD - 12/23/2019 1:19 AM CDT MICU Progress Note Date of Service: 12/23/2019 01:20 Reason for ICU admission: lower GIB ICU Day: 1 Intubation Day: n/a Code Status: Full Last 24 hour events (major events): - Hgb 8.0 >6.9 overnight. No overt bleeds since 4pm. -GI requesting IR to perform embolization overnight given concern for active extravasation seen on CT scan at noon. Discussed with IR who said that given patient is hemodynamically stable no need for urgent intervention overnight. Also discussed with vascular surgery who agree with IR. Subjective: Patient says he has left sided abdominal pain. Got x1 morphine IV however c/o localized itching afterwards. No bloody BMs since 4pm. Intake/Output Summary (Last 24 hours) at 12/23/2019 0120 Last data filed at 12/22/2019 1336 Gross per 24 hour Intake 566 ml Output Net 566 ml Physical Exam: Temp: [36.2 C (97.2 F)-37.6 C (99.7 F)] Heart Rate (monitor): [68-77] Pulse: [71-87] Resp: [10-23] BP: (74-135)/(31-85) MAP (mmHg): [55-94] Constitutional: alert and oriented x 4; no apparent distress HEENT: normocephalic atraumatic Resp: clear to auscultation bilaterally Cardio: regular rate and rhythm GI: soft; TTP in left abdomen; non-distended; normoactive bowel sounds MSK: no clubbing, cyanosis, or edema Integ: no rashes Neuro: no focal deficits Labs (pertinent only)/Imaging: Reviewed Microbiology: Bcx pending Assessment/Plan: Rosales Sandoval is a 74 year old male admitted with Neuro No Acute Problem Patient has not had a change in mental status. Will monitor. Pulmonary No Acute Problem Patient is saturating. Will monitor vitals and O2 saturation. -O2 per protocol Cardiovascular/Hematological: Normocytic Anemia Afib CAD PVD HTN After multiple episodes ofhematochezia, patient was transfused.Patient's Hb chung from 7.6 to 8, inappropriate response.Patienthas significant ASCVD history and had active bleed. Heis currentlyhemodynamically stable without signs of shock. Patient had Hgb drop from 8.0 > 6.9 overnight. GI contacted MICU team concerned about CT findings done at noon showing active extravasation near splenic flexure. They requested IR perform embolization overnight and if they could not to discuss with vascular surgery. Discussed with IR resident on- call who says that given patient has remained hemodynamically stable there is no need for urgent intervention overnight. Discussed with vascular surgery on-call who agrees with IR assessment. Provided another 1u pRBCs overnight. -monitor for bleeds. -hold antiHTN meds -f/u repeat HH GI/Nutrition: Active GIB at Splenic Flexure Evolving Perotinitis? SMA Stenosis s/p Stent Patient hadmultiple episodes of hematochezia prior to admission and an episode ofmaroon stool/current jelly stool. CT shows active bleed at the splenic flexure. IR and GI consulted. Plan for IR is CTA in the AM unless hemodynamic compromise develops, in which case IR is to be paged STAT for emergent CTA. Patient had Hgb drop from 8.0 > 6.9. GI contacted MICU team concerned about CT findings done at noon showing active extravasation. They requested IR perform embolization overnight. Discussed with IR resident on-call who says that given patient has remained hemodynamically stable there is no need for urgent intervention overnight. Discussed with vascular surgery on-call who agrees with IR assessment. Provided another 1u pRBCs overnight. In addition, GI concerned for possible contained perforation, therefore will hold on bowel prep and planned colonoscopy in AM. - NPO - Follow-up with IR - Follow-up with GI - Pantoprazole BID Renal/Electrolytes/Fluids: ESRD MWF Fistula s/p Stenting LUE Steal Syndrome s/p Bnading Nephrology consulted to initiate HD -Follow-up with Nephrology consult for HD scheduling Infectious Diseases: AbdomenPain Leukocytosis Physical exam significant for tense abdomen. Patient has tenderness to deep palpation in the ULQ. His WBC is elevated at 13.26. CT was significant for a small amount of free fluid in the abdomen and around the liver, but no valentina air/perforation.Will monitor vitals,WBC trend, and overall clinical p icture.Will start the patient on broad spectrum antibiotics to target gram negative rods and anaerobes. -[id number] QD - Metronidazole 500mg Q8H - Follow-up with blood cultures Endocrine: No active issues Romario Anguiano MD Internal Medicine, PGY-3 Pager: [phone] # [phone] Hospital Course Rosales Sandoval is a 74 year old malewith a PMH ofAfib (not on anticoagulants),ESRD (HD MWF, last session yesterday), SMA stenosis s/p stent placement, AVF banding for steal syndrome(05/2019),HTN,CAD, and PVD,[place] rectum. Hgb 7.6 > 8.0 after [address] showed active GI bleeding site confirmed in the splenic flexure region. Patient has remained hemodynamically stable. Hgb dropped to 6.9 overnightwith no overt bleeding, remaining hemodynamically stable.IR planning for embolization on 12/22. Associated attestation - Rudy Billings MD - 12/23/2019 10:49 AM CDTI personally examined the patient on 12/23/[address] Anguiano's resident note and Dr. Shaikh H/PE from 12/22/19. I actively participated in the decision-making process. Please see theresident's note for additional details. 1. Acute GIB due to lower GIB (splenic flexure CTA+) 2. Symptomatic N/N anemia due to #1 3. Hyponatremia, hyperkalemia 4. Hypoalbuminemia Plan: -maintain 2 large bore PIV (16g or larger) or cordis -Monitor H/H -PRBC for goal Hgb >7 -IR embolization this am Kt Hayes MD - 12/22/2019 8:25 PM CDTBrief GI note Discussed case with Dr. Hernández and Dr. Rader. The patient has imaging showing active extravasation near the splenic flexure. There is also concern for possible contained perforation on our read. Presented with Hgb 7.6 from baseline ~10 and most recent BP was 85/57. Given these findings he will need frequent transfusions and source control with IR. Preparation for colonoscopy is not advisable if there is possible perforation. Will not plan on endoscopic evaluation in the AM at this time. Recommendations - please contact interventional radiology for embolization NAVYA, vascular surgery consult can be an alternative if IR is unable to intervene - discontinue bowel preparation - monitor CBC q6h and transfuse to maintain Hgb >7.0 - please contact GI fellow legislative correspondent with questions Addendum: primary team discussed case with IR, per IR embolization is not indicated as this time as patient is stable. Please consult vascular surgery for their input. Kt Hayes Gastroenterology Fellow, PGY-4 Division of Gastroenterology and Hepatology Bill West DO - 12/22/2019 5:44 PM CDTBRIEF IR NOTE: IR consult for active lower GI bleeding. Transfer from [facility]. The image and case reviewed by Dr. Muse. H/H at 1625 is 11/09. Hemodynamically stable. Plan: IR embolization planned following morning (12/23/19). Serial H/H and blood transfusion as necessary. If the patient decompensates overnight, please inform IR at any time. Above plan was discussed with Dr. Urban from MICU at approximately 5pm 12/22/19. Bill Johnson DO Associated attestation - Coleman Muse MD - 12/23/2019 9:18 AM CDT Agree with the resident note. Coleman Muse MD 9:18 AM documented in this encounter H&P Notes Cheng Snider MD - 12/22/2019 6:07 PM CDT MICU H&P Date of Service: 12/22/2019 18:07 CC/Reason for ICU Admission: LGIB HISTORY OF PRESENT ILLNESS Rosales Sandoval is a 74 year old male with a PMH of Afib (not on anticoagulants), ESRD (HD MWF, last session yesterday), SMA stenosis s/p stent placement, AVF banding for steal syndrome (05/2019), HTN, CAD, and PVD, who presented as a transfer from [place] for 1 day of bright red blood per rectum. Patient reports he has been having watery diarrhea for 6 months, but noticed an acute change this morning with gross blood per rectum. Reports having "non-stop" episodes today. Denies ever having similar symptoms previously. Patient reports he began to have the development of abdominal pain after he began having bloody BMs. Patient reports he has been taking lomatium 4-5x per day for diarrhea symptoms. At the [facility] vitals were significant for BP of 105/31. Patient received 1 unit pRBC. Pre transfusion Hb 7.6, post transfusion Hb 8.0. Abdominal CT showed active GI bleeding site confirmed in the splenic flexure region. Active extravasation of contrast medium during arterial and venous phases. PAST MEDICAL HISTORY: Patient has a past medical history of ESRD (end stage renal disease) on dialysis and Peripheral vascular disease. PAST SURGICAL HISTORY: Patient has a past surgical history that includes arteriovenous fistula creation. FAMILY HISTORY: Patient's family history includes No Significant Medical Problems in his brother, father, mother, and sister. SOCIAL HISTORY: Patient reports that he has been smoking. He has a 136.00 pack-year smoking history. He has never used smokeless tobacco. He reports that he does not use drugs. ALLERGIES: Allergen Reactions Eliquis [Apixaban] Rash Plavix [Clopidogrel Bisulfate] Rash Terramycin [Oxytetracycline] Unknown - See comments Pt states he blacks out Warfarin Rash Xarelto [Rivaroxaban] Rash REVIEW OF SYSTEMS: (-)=Negative,(+)=Positive General: (-) fever, (-) chills, (-) weight loss, (-) weight gain, (-) fatigue, (-) malaise Skin: (-) rash, (-) lesion HEENT: (-) headache, (-) change in hearing, (-) change in vision, (-) nasal discharge, (-) sore throat Neck: (-) pain, (-) difficulty swallowing, (-) mass Heme: (-) bleeding disorder Resp: (-) cough, (-) shortness of breath, (-) dyspnea on exertion, (-) missing Cardio: (-) chest pain, (-) palpitations, (-) syncope GI: (+) abdominal pain, (+) diarrhea, (+) hematochezia, (+) hematemesis : (-) dysuria, (-) hematuria, (-) increased frequency, (-) difficulty urinating, (-) difficulty initiating Endo: (-) heat intolerance, (-) diabetes, (-) cold intolerance, (-) polyuria, (- ) polydipsia, (-) renal insufficiency, (-) thyroid disease Neuro: (-) numbness, (-) tingling, (-) weakness Back: (-) pain, (-) spasms PHILLIP: (-) muscle pain, (-) joint pain, (-) claudication Psych: (-) anxiety, (-) depression, (-) psychiatric disorder PHYSICAL EXAMINATION: Vitals: 12/22/19 1700 12/22/19 1715 12/22/19 1800 12/22/19 1804 BP: 100/54 106/62 (!) 85/57 Pulse: 80 75 72 78 Resp: 16 21 22 15 Temp: TempSrc: SpO2: 91% 92% 96% 94% Weight: Height: Constitutional: alert and oriented x 4 (person, place, date/time and situation); no apparent distress HEENT: pupils equal, round, reactive to light; extraocular movements intact; oropharynx clear; moistmucous membranes Neck: supple, no lymphadenopathy, no bruits, no JVD Resp: clear to auscultation bilaterally Cardio: Telemetry significant for atrial fibrillation GI: tender, distended, guarding : not examined Rectal: not examined MSK: edema Integ: no rashes Neuro: no focal deficits Labs (pertinent only) CBC: Recent Labs 12/22/19 1110 12/22/19 1625 WBC 13.26* 13.45* HGB 7.6* 8.0* MCV 94.3 92.6 PLT 150 137* BMP: Recent Labs 12/22/19 1110 NA 132* K 4.3 CA 9.4 CL 88* BUN 34* CREAT 8.09* GLU 99 TCO2 35* LFTs: Recent Labs 12/22/19 1110 ALB 3.0* TPRO 5.6* BILIT 0.7 ALT 6 AST 14 ALKPHOS 101 Coagulation Panel: Recent Labs 12/22/19 1111 PTINR 1.3 PTPAT 15.6* APTTPAT 37 Microbiology: Blood Cultures (12/21): pending Imaging: CT Abdomen and Pelvis (12/22/19): 1. Active GI bleeding site confirmed in the splenic flexure region. Active extravasation of contrastmedium is seen during arterial as well as venous phases. There is congestion of the surrounding fat.Findings are consistent with ischemic colitis with questionable focal extraluminal air accumulation in the congested fat surrounding the splenic flexure. No free intraperitoneal air detected.. Small amount of free fluid noted in the lower abdomen and surrounding the liver. 2. Evidence of previous abdominal surgeries including bowel resection and aortobifemoral bypass. 3. S/P right nephrectomy. Severe atrophy of left kidney with numerous cystic lesions. 4. Thrombosed inferior vena cava. S/P cholecystectomy. 5. Small bilateral pleural effusion and atelectatic changes in the left lower lung. 6. Pigtail catheter is seen in the gastric lumen lumen extending into the retrogastric region. Assessment/Plan: Rosales Sandoval is a 74 year old male admitted with LGIB: Neurological/Psychiatric: No Acute Problem Patient has not had a change in mental status. Will monitor. Pulmonary: No Acute Problem Patient is saturating. Will monitor vitals and O2 saturation. - O2 per protocol Cardiovascular/Hematological: Normocytic Anemia in the setting of active hemorrhage s/p 1u pRBC Afib CAD PVD HTN After multiple episodes of hematochezia, patient was transfused. Patient's Hb chung from 7.6 to 8. Patient has significant ASCVD history and had active bleed. He is currently hemodynamically stable without signs of shock. Will monitor vitals closely for instability with STAT IR consult if develops. - Nifedipine ER held on admission given active bleed - Consented for pRBC GI/Nutrition: Active GIB at Splenic Flexure Evolving Perotinitis? SMA Stenosis s/p Stent Patient had multiple episodes of hematochezia prior to admission and an episode of maroon stool/current jelly stool. CT shows active bleed at the splenic flexure. IR and GI consulted. Plan for IR is CTA in the AM unless hemodynamic compromise develops, in which case IR is to be paged STAT for emergentCTA. GI to scope tomorrow morning - NPO - CTA in the AM - Endoscopy in the AM - 551 protocol - Follow-up with IR - Follow-up with GI - Pantoprazole BID Renal/Electrolytes/Fluids: ESRD MWF Fistula s/p Stenting LUE Steal Syndrome s/p Bnading Nephrology consulted to initiate HD - Follow-up with Nephrology consult for HD scheduling Infectious Diseases: Abdomen Pain Leukocytosis Physical exam significant for tense abdomen. Patient has tenderness to deep palpation in the ULQ. His WBC is elevated at 13.26. CT was significant for a small amount of free fluid in the abdomen and around the liver, but no valentina air/perforation. Will monitor vitals, WBC trend, and overall clinical picture. Will start the patient on broad spectrum antibiotics to target gram negative rods and anaerobes. - Meropenem 500mg QD - Metronidazole 500mg Q8H - Follow-up with blood cultures Endocrine: No Acute Problem Patient doses not have a history or signs of T2DM or hypothyroidism. Will monitor bG and vitals. Prognosis: Guarded Leena Klaus Oliveira, MS4 I personally examined the patient on 12/22/19 and have verified the medical student's documentation and/or findings, including the history, physical exam, and medical decision making. Additionally, I have personally performed or re- performed the physical exam and medical decision making activities of this patient's evaluation and management service. Cheng Snider MD Internal Medicine PGY-1 Preemption Team #[id number] Associated attestation - Rudy Billings MD - 12/23/2019 10:49 AM CDTdocumented in this encounter Procedure Notes Eva Hall MD - 12/23/2019 11:59 AM CDTVASCULAR AND INTERVENTIONAL RADIOLOGY PROCEDURE NOTE Pre-procedure diagnosis: LGIB Post-procedure diagnosis: Same Procedure: Mesenteric angiography Findings: Significant diffuse arterial disease with aortobiiliac bypass. Generally low flow detected throughout, possibly due to low cardiac output (EF). *Multiple attempts to angio Celiac artery failed due to complete occlusion. *Lt. Renal artery angiography showed significant vascular disease and stenosis. *Multiple SMA angiographies showed widely patent vessel with anatomical branches. *FELICITY reconstituted by SMA artery. *No active extravasation noted in any of the performed angiographies. Complications: None Condition: Stable/unchanged Estimated blood loss: Less than 30 mL. Full dictated note to follow in PACS. Eva Hall MD Associated attestation - Coleman Muse MD - 12/23/2019 12:17 PM CDT Agree with the resident note. The SMA and multiple branches of the SMA including the middle colic artery were extensively interrogated with no evidence of active extravasation or pseudoaneurysm. The FELICITY is no longer present due to the patient's prior aortobiiliac stent. The entire colon is supplied by the SMA. There is generally slow antegrade arterial flow in the SMA and its branches so any further/repeat bleeding is likely to stop on its own and repeat angiography is therefore unlikely to be helpful and not indicated in case of a rebleed. Coleman Muse MD IR Faculty 12:15 PM documented in this encounter Consult Notes Carola Carmona - 12/23/2019 2:35 PM CDT MEDICAL NUTRITION THERAPY NOTE Chief Complaint: Lower GIB Reason for encounter: bisque brusher for positive initial nutrition screen: disease severity, age NUTRITION ASSESSMENT: I have reviewed the comprehensive progress notes dated today as well as additional physician and allied health provider notes and EPIC information for an understanding of the patient's current medical condition and plans for further treatment and care. Rosales Sandoval is a 74 year old male with a PMH ofAfib (not on anticoagulants),ESRD (HD MWF,last session 12/20), SMA stenosis s/p stent placement, AVF banding for steal syndrome(05/2019),HTN,CAD, and P[facility]. Hgb 7.6 > 8.0 after [address] showed active GI bleeding site confirmed in the splenic flexure region. Patient has remained hemodynamically stable. Hgb dropped to 6.9 overnight with no overt bleeding, remaining hemodynamically stable.IR planning for embolization on 12/[address] Anguiano's note 12/22. Food/Nutrition-Related History: Patient reported feeling very hungry and wanting food but knows he cant have anything right now. RN reported patient had nausea yesterday but none today and he has generalized abdominal pain (mostly on the left side) due to his condition. RN explained he was admitted due to loose bloody stools. Patient said that he enjoys drinking Ensure drinks but his dialysis center said he is not able to have any. GI and Nutrition Related Findings: Nausea (+) Vomiting (-) Constipation (-) Diarrhea (+) Abdominal Pain (+) Difficulty: Chewing (-) Swallowing (-) GI tract alteration (-) (e.g., h/o bariatric surgery, ostomy, resection, etc.) Alternative means of nutrition (-) (e.g., PEG/PEJ, TPN, DHT, etc.) PO intake: NPO +BM 12/22/19 UOP Anuric Last HD prior to admission General: Edema (2+ right and left leg) Ascites (-) Para or Quadriplegia (-) Amputation (-) Wounds (-) Trauma/Surgical Incisions (-) Diabetes (-) Food Assistance (-) Home Provider (-) Pertinent Medications: Noted. Includes: Xanax, IV Zofran (PRN- 12/22), Protonix, Tramadol (PRN) Labs and Medical Test Results: FSBS: 64 mg/dL Results for MAURADEVI ROSALES GODINEZ ( ) as of 12/23/2019 11:55 12/22/2019 11:10 12/23/2019 07:34 NA 132 (L) 132 (L) K 4.3 5.2 (H) CL 88 (L) 91 (L) CO2 TOTAL 35 (H) 32 (H) AGAP 9 9 BUN 34 (H) 47 (H) GLUCOSE 99 54 (L) CREATININE 8.09 (H) 8.47 (H) eGFR CALCULATION (non ) 6.5 6.2 TOTAL BILI 0.7 CALCIUM 9.4 8.1 (L) T PROTEIN 5.6 (L) Corrected Calcium: 8.9 (WNL) ALBUMIN (g/dL) Date Value 12/22/2019 3.0 (L) Current Diet Order(s): (12/21) NPO Documented Food Allergies/Intolerance/Cultural Preferences: None Anthropometrics: Height: 5' 8" Weight: 165 lbs (74.8 kg) Body mass index is 25.09 kg/m. IBW: 154 lbs (70 kg) at BMI 24.9 kg/m^2 %IBW: 107% UBW: 165 lbs (74.8 kg) Admit Weight: 165 lbs (74.8 kg) Wt Readings from Last 6 Encounters: 12/23/19 74.8 kg (165 lb) Estimated Needs: based on IBW Calories: 1750 - 2100 kcals/day (25 - 30 kcal/kg) Protein: 70 - 85 g protein/day (1.0 - 1.2 g protein/kg) Fluids: ~1000 mL/day or per MD discretion (for hydration maintenance when euvolemic, adjust rec'd goal per pt acute needs) NUTRITION DIAGNOSIS: 1) Inadequate oral intake related to lower GI bleed as evidenced by NPO status. NUTRITION INTERVENTIONS: 1) When patient is appropriate for PO intake, recommend advancing diet as tolerated to clear liquid then full liquid then GI Soft diet to promote PO intake. 2) Once diet is advanced, recommend Nepro ONS TID (provides 425 kcal, 19 grams protein, 250 mg K per8 oz bottle) to promote adequate PO intake. Goal(s): 1) The patient will be able to consume 75% of all meals without any intolerances during this admission. MONITORING/EVALUATION: - RD to continue following with Nephrology team to review pt's progress, report nutrition related information, and to revise the recommended nutrition intervention(s) if necessary; please call with questions or concerns - Discharge planning in process Anticipated Discharge Needs: None identified at this time. Carola Carmona Sales Representative [employer] Associated attestation - Keysha Luu - 12/23/2019 4:44 PM CDTI have reviewed the nutrition care plan for Rosales Sandoval, and I agree with Carola Carmona's note as written. I actively participated in the plan of care. Keysha Luu, MS, RD, SEARCH ENGINE MARKETING SPECIALIST, LD Nephrology Dietitian Pager: [phone] Horton MD - 12/23/2019 1:00 PM CDTAssociated Order(s): CONSULT GENERAL SURGERY General Surgery Consult Note Chief Complaint/Reason for Consult: concern for bowel perforation Active Problems: Lower GI bleed Gastrointestinal hemorrhage, unspecified gastrointestinal hemorrhage type Acute blood loss anemia Ischemic colitis PVD (peripheral vascular disease) HPI: Rosales Sandoval is a 74 year old male with extensive medical history including PVD s/p aortobifemoral bypass, SMA stenosis s/p distant stent placement presenting with chronic diarrhea and abdominal pain and a week of hematochezia, worsened abdominal pain, and n/v without hematemesis after dialy sis session last Thursday 12/14. Now s/p attempted IR embolization, seen to be generally low flow, but no new stenting or embolization performed. ACS consulted after free air seen on CT indicating concernfor bowel perforation. Patient expressed hesitancy about possible need for ostomy, but also he and expressed wish to proceed with urgent/emergent surgery if it becomes necessary. ASSESSMENT: Rosales Sandoval is a 74 year old male with extensive medical history including PVD s/p aortobifembypass and distant SMA stenting, now with concern for bowel perforation at splenic flexure due to ischemic colitis. Stable, no sign of peritonitis on exam. Possible free air on CT A/P, active extravasation into bowel lumen RECS: - no surgical intervention at this time as patient is high risk - recommend against GI endoscopy - we will perform serial abdominal exams - continue IV abx - ok for sips of clear liquids, otherwise recommend NPO - avoid sbp < 140 to avoid further bowel ischemia, recommend arterial boluses during dialysis prnto keep sbp > 130 - maintain Hgb > 9 - rec scheduled epogen Discussed with Dr. Holloway who agrees with the above assessment and plan. Past Medical History: Diagnosis Date CAD (coronary artery disease) ESRD (end stage renal disease) on dialysis Ischemic colitis Peripheral vascular disease Past Surgical History: Procedure Laterality Date ARTERIOVENOUS FISTULA CREATION NEPHRECTOMY 2009 [place] BYPASS GRAFT OTHR,AORTOBIFEMORAL Bilateral 2004 Social History Socioeconomic History Marital status: Single Spouse name: Not on file Number of children: Not on file Years of education: Not on file Highest education level: Not on file Occupational History Not on file Social Needs Financial resource strain: Not hard at all Food insecurity Worry: Patient refused Inability: Patient refused Transportation needs Medical: Patient refused Non-medical: Patient refused Tobacco Use Smoking status: Current Every Day Smoker Packs/day: 2.00 Years: 68.00 Pack years: 136.00 Smokeless tobacco: Never Used Substance and Sexual Activity Alcohol use: Not on file Drug use: Never Sexual activity: Not on file Lifestyle Physical activity Days per week: Not on file Minutes per session: Not on file Stress: Not on file Relationships Social connections Talks on phone: Not on file Gets together: Not on file Attends spiritism service: Not on file Active member of club or organization: Not on file Attends meetings of clubs or organizations: Not on file Relationship status: Not on file Intimate partner violence Fear of current or ex partner: Not on file Emotionally abused: Not on file Physically abused: Not on file Forced sexual activity: Not on file Other Topics Concern Not on file Social History Narrative Not on file Family History Problem Relation Age of Onset No Significant Medical Problems Mother No Significant Medical Problems Father No Significant Medical Problems Sister No Significant Medical Problems Brother Non-contributory to current complaints and symptoms Allergies: Allergies Allergen Reactions Fentanyl Itching and Shortness of Breath Iv Contrast [Iodine And Iodide Containing Products] Itching and Shortness of Breath Eliquis [Apixaban] Rash Morphine Itching Plavix [Clopidogrel Bisulfate] Rash Terramycin [Oxytetracycline] Unknown - See comments Pt states he blacks out Warfarin Rash Xarelto [Rivaroxaban] Rash No current facility-administered medications on file prior to encounter. Current Outpatient Medications on File Prior to Encounter Medication Sig Dispense Refill acetaminophen 325 mg tablet Take 325 mg by mouth every 4 (four) hours as needed. ALPRAZolam (XANAX) 0.5 mg tablet Take 0.5 mg by mouth 2 (two) times daily. loperamide HCl (IMODIUM ORAL) Take by mouth 4 (four) times daily. metoprolol succinate XL 100 mg 24 hr tablet Take 150 mg by mouth 2 (two) times daily. NIFEdipine ER 30 mg tablet Take 30 mg by mouth 2 (two) times daily. terazosin 5 mg capsule Take 5 mg by mouth daily. Indications: Non-dialysis days REVIEW OF SYSTEMS: Constitutional: Negative for fever and chills. Heent : Negative for congestion or sore throat Cardiovascular: Negative for chest pain and palpitations. Respiratory: Is not experiencing shortness of breath or cough. Gastrointestinal: +nausea and vomiting, +diarrhea, no GERD. Genitourinary: Negative for dysuria and hematuria. Neurological: Negative for dizziness, tingling, sensory change, speech change, focal weakness, seizures and loss of consciousness Hematologic: No easy bruising or bleeding Endocrine: No heat or cold intolerance Psychiatry: No suicidal or homicidal ideation PHYSICAL EXAM: BP (!) 181/69 | Pulse 80 | Temp 36.8 C (98.2 F) (Tympanic) | Resp 16 | Ht 1.727 m (5' 8") |Wt 74.8 kg (165 lb) | SpO2 100% | BMI 25.09 kg/m HEENT: NCAT, PERRLA/EOMI Neck: supple, FROM Lungs : Normal effort Heart : Regular rate and rhythm Abdomen: Diffusely tender L > R, soft, moderately distended, with no stephens's sign or rebound tenderness, no guarding Rectal: Not performed Genitalia: Not examined Extremities: Atraumatic, FROM Neurological: AA&O x3. No focal/motor deficits Skin: No rash or lesions DIAGNOSTIC STUDIES: No final results containing an impression from the past [address] A/P: 12/21 CONCLUSION: 1. Active GI bleeding site confirmed in the splenic flexure region. Active extravasation of contrast medium is seen during arterial as well as venous phases. There is congestion of the surrounding fat. Findings are consistent with ischemic colitis with questionable focal extraluminal air accumulation in the congested fat surrounding the splenic flexure. No free intraperitoneal air detected.. Small amount of free fluid noted in the lower abdomen and surrounding the liver. 2. Evidence of previous abdominal surgeries including bowel resection and aortobifemoral bypass. 3. S/P right nephrectomy. Severe atrophy of left kidney with numerous cystic lesions. 4. Thrombosed inferior vena cava. S/P cholecystectomy. 5. Small bilateral pleural effusion and atelectatic changes in the left lower lung. 6. Pigtail catheter is seen in the gastric lumen lumen extending into the retrogastric region. 12/22 4:33am WBC 4.20 - 10.70 10*3/L 10.20 RBC 4.26 - 5.52 10*6/L 2.87Low HGB 12.2 - 16.4 g/dL 8.2Low HCT 38.4 - 49.3 % 24.9Low MCH 26.1 - 32.7 pg 28.6 MCV 81.7 - 95.6 fL 86.8 MCHC 31.2 - 35.0 g/dL 32.9 PLT 150 - 328 10*3/L 129Low MPV 9.8 - 13.0 fL 11.1 RDW-CV 12.1 - 15.4 % 22.2High RDW-SD 38.5 - 51.6 fL 69.4High NRBC x10^3 10*3/L <0.01 NRBC/100 WBC 0.0 - 10.0 /100 WBCs 0.0 10/7 am: NA 135 - 145 mmol/L 132Low K 3.5 - 5.0 mmol/L 5.2High CL 98 - 108 mmol/L 91Low CO2 TOTAL 23 - 31 mmol/L 32High AGAP 2 - 16 9 BUN 7 - 23 mg/dL 47High GLUCOSE 70 - 110 mg/dL 54Low CREATININE 0.60 - 1.25 mg/dL 8.47High CALCIUM 8.6 - 10.6 mg/dL 8.1Low eGFR Calculation (Non-) mL/min/1.73m2 6.2 eGFR Calculation () mL/min/1.73m2 7.5 10 BC x2 NGTD Associated attestation - Jm Holloway MD - 12/23/2019 2:37 PM CDTI reviewed the patient's chart and examined the patient on 12/23/[address] Horton's note as written. I actively participated in the decision-making process. Please see the resident's note for additional details. 74 year old male vasculopath with multiple comorbidities presenting with rectal bleeding. IR angiogram with low flow state and no active extravasation CT with colonic thickening splenic flexure. No free air. WBC normal. Abdominal exam with tenderness to palpation L>R but no valentina peritonitis Likely some degree of ischemic colitis due to low flow state -Monitor serial abdominal exams -Avoid hypotension, especially with dialysis -Recommend ABX -Will follow MD Hussein Ridley Alexis, MD - 12/23/2019 12:03 AM CDT VASCULAR SURGERY - CONSULT NOTE Date of Admission: 12/22/2019 Date of Service: 12/22/2019 Reason for Consult: GI bleed with extrav on CTA, evaluate for embolization HPI Rosales Sandoval is a 74 year old malewith a PMH ofAfib (not on anticoagulants),ESRD (HD MWF, last session yesterday), SMA stenosis s/p stent placement about 10 years ago, AVF banding for steal syndrome(05/2019),HTN,CAD s/p PCI in 2019, and 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 CTA of abdomen today was significant for active extravasation on arterial and venous phases and ischemic colitis at the splenic flexure. Vascular was consulted to evaluate for embolization. Mr. Sandoval presented to the [facility] ED this morning after noting brisk bright red bleeding from his rectum early this morning that did not resolve. He reports he had dialysis yesterday that was completed successfully with no other noticeable changes yesterday. He reportshe began to have the development of left sided abdominal pain when he was smoking after having bloody diarrhea. He has a several month history of watery diarrhea and intermittent abdominal pain not associated with eating. He has never had bleeding from his rectum before. Patient reports he has been using imodium to control diarrhea. He has a history of polyps on his colonoscopy done 10 years ago that he hasn't followed up about since. He has a history of worsening GERD that seems to be continuous that he has not seen a provider for. He does not note any post-prandial pain or worsening of pain with eating. He has had several open abdominal procedures including nephrectomy, aortobifemoral bypass, and appendectomy. He hashad some lower extremity pain with walking since his open aortic procedure with loss of sensation along the plantar surface of his feet otherwise he is able to ambulate freely. At the [facility] vitals were significant for BP of 105/31. Patient received 1 unit pRBC. Pre transfusion Hb 7.6, post transfusion Hb 8.0. 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 Pancreatitis Renal disorder PAST SURGICAL HISTORY Past Surgical History: Procedure Laterality Date ARTERIOVENOUS FISTULA CREATION APPENDECTOMY CARDIAC CATHETERIZATION Right 11/28/2018 CARDIAC CATHETERIZATION N/A 11/28/2018 CARDIAC CATHETERIZATION N/A 11/28/2018 CARDIAC CATHETERIZATION N/A 11/28/2018 CARDIAC CATHETERIZATION N/A 11/28/2018 CREATION, AV FISTULA Left 03/31/2019 FISTULOGRAPHY, DIALYSIS SHUNT, AND DECLOTTING Left 04/21/2019 REVISION, ARTERIOVENOUS GRAFT, WITH ANGIOGRAPHY Left 05/22/2019 VENOGRAM, EXTREMITY Bilateral 03/24/2019 MEDICATIONS No current facility-administered medications on file prior to encounter. Current Outpatient Medications on File Prior to Encounter Medication Sig Dispense Refill acetaminophen 325 mg tablet Take 325 mg by mouth every 4 (four) hours as needed. ALPRAZolam (XANAX) 0.5 mg tablet Take 0.5 mg by mouth 2 (two) times daily. loperamide HCl (IMODIUM ORAL) Take by mouth 4 (four) times daily. metoprolol succinate XL 100 mg 24 hr tablet Take 150 mg by mouth 2 (two) times daily. NIFEdipine ER 30 mg tablet Take 30 mg by mouth 2 (two) times daily. terazosin 5 mg capsule Take 5 mg by mouth daily. Indications: Non-dialysis days SOCIAL HISTORY Rosales Sandoval reports that he has been smoking. He has a 136.00 pack-year smoking history. He has never used smokeless tobacco. He reports that he does not use drugs. FAMILY HISTORY family history includes No Significant Medical Problems in his brother, father, mother, and sister. ALLERGIES Allergies Allergen Reactions Eliquis [Apixaban] Rash Plavix [Clopidogrel Bisulfate] Rash Terramycin [Oxytetracycline] Unknown - See comments Pt states he blacks out Warfarin Rash Xarelto [Rivaroxaban] Rash PHYSICAL EXAM Temp: [36.5 C (97.7 F)-37.6 C (99.7 F)] Heart Rate (monitor): [68-77] Pulse: [72-87] Resp: [12-23] BP: (74-135)/(31-85) MAP (mmHg): [55-94] BP range from 18:00: (106-135)/ (46-63), MAP [71-77] Constitutional: AOx3, NAD - resting comfortably, mild jaundice Facial Droop: No Ears, Nose, Mouth, Throat: dry mucous membranes Neck: supple Respiratory: normal effort, symmetrical chest rise Abdomen: soft, ND, non-rigid, no guarding, LUQ tenderness on deep palpation, no TTP of other quadrants, midline incision scar, mild TTP of suprapubic region (says this has been for several months) Extremities: motor intact, sensation intact, warm and well perfused, ambulates freely but notes decreased sensation along plantar surface Vascular: palpable femoral pulses bilaterally, palpable DP/PT bilaterally Neurologic: No focal deficits Psychiatric: appropriate insight, affect, and judgment Labs: Recent Labs 12/22/19 1110 12/22/19 1625 12/22/19 2225 WBC 13.26* 13.45* 10.21 HGB 7.6* 8.0* 6.9* HCT 23.2* 25.1* 21.3* PLT 150 137* 130* Recent Labs 12/22/19 1110 NA 132* K 4.3 CL 88* TCO2 35* BUN 34* CREAT 8.09* GLU 99 CA 9.4 Recent Labs 12/22/19 1111 PTPAT 15.6* PTINR 1.3 APTTPAT 37 Imaging: CT Abdomen and Pelvis without and with intravenous contrast.12/22/19 12:04 Vessels: Extensive atherosclerosis is noted with aortobifemoral bypass, metallic stent probably in the right renal artery. Inferior vena cava is completely thrombosed. Bowel: Active bleeding site is visualized in the splenic flexure region of large bowel with active extravasation of contrast medium noted in the arterial as well as delayed venous phases. There is congestion in the surrounding fat. A small amount of air suspected accumulated in the extraluminal space at within the congested fat without valentina perforation/free intraperitoneal air. CONCLUSION: 1. Active GI bleeding site confirmed in the splenic flexure region. Active extravasation of contrast medium is seen during arterial as well as venous phases. There is congestion of the surrounding fat. Findings are consistent with ischemic colitis with questionable focal extraluminal air accumulation in the congested fat surrounding the splenic flexure. No free intraperitoneal air detected.. Small amount of free fluid noted in the lower abdomen and surrounding the liver. 2. Evidence of previous abdominal surgeries including bowel resection and aortobifemoral bypass. 3. S/P right nephrectomy. Severe atrophy of left kidney with numerous cystic lesions. 4. Thrombosed inferior vena cava. S/P cholecystectomy. 5. Small bilateral pleural effusion and atelectatic changes in the left lower lung. 6. Pigtail catheter is seen in the gastric lumen lumen extending into the retrogastric region. Vascular Labs: No recent vascular studies. Assessment/Plan: Rosales Sandoval is a 74 year old male with HPI as above who has findings of an acute lower GI bleed. His abdominal exam is not concerning for peritonitis, and he has been hemodynamically stable withMAPs ranging from 71-77 and heart rate within normal limits. Active bleeding per rectum has resolvedand is now decreased in amount, dark maroon and current jelly in characteristic. His Hgb trend was 7.6 at 1100, 1U pRBCs transfused then 8.0 at 1625, now 6.9 at 2225 and 1U pRBCs are being transfused. As he is an ESRD patient chronic anemia can be expected. CTA findings of active extravasation were completed at 12p today, now about 12 hours after with stable clinical presentation without volume resusc itation, the brisk bleeding has most likely stopped. We agree with IR to not intervene emergently with embolization as he is hemodynamically and clinically stable with no signs of peritonitis at this time. - No acute vascular intervention at this time - Trend H/H, transfuse pRBCs as needed -- s/p 2U pRBCs - Continue serial abdominal exams - Vascular will be available for urgent embolization, if he decompensates - Rest of care per primary Patient discussed with Dr. Joseph on 12/23/2019. Mati Savage MD PGY-1, Vascular Surgery 12/22/2019 Vascular Pager: [phone] Associated attestation - Kathy Joseph MD - 12/23/2019 1:09 PM CDTI discussed the patient with Dr. Savage on 12/22/2019. I agree with the note as detailed by Dr. Savage. I actively participated in the decision-making process regarding the assessment and plan of care.Please see the resident's note for additional details. Kathy Joseph MD, [facility] Vascular Surgery Raul Guzman MBBS - 12/22/2019 4:45 PM CDTAssociated Order(s): CONSULT NEPHROLOGY NEPHROLOGY CONSULT NOTE 12/22/2019 16:46 Reason For consult: please give recommendation or opinion on: Rosales Sandoval is a 74 year old male with ESRD on HD MWF who presents with acute lower GI bleed. Please be aware of patient to hopefully schedule HD for tomorrow. Thank you. Consulted By: Liza Fournier MD CC: ESRS-on HD-MWF HPI: Rosales Sandoval is a 74 year old /White male with past medical history CAD, PVD, SMA stenosis s/p stent placement, ESRD on HD, AVF banding for steal syndrome (05/2019x 2), who presents with complaints of bloody diarrhea that began early in the morning and persisted throughout the morning sohe went to the ER in [facility]. Reports left sided abdominal pain that is sharp in nature. No previous GIB. Was being worked up for chronic diarrhea by a customer sales distributor and scheduled for EGD/colonoscopy but cancelled due to COVID. Patient has Angiography of SMA by IR and Vascular team. Patient was uncomfortable today he wanted to have two three hours of dialysis instead of 4. Patient denies nausea vomiting or tremors History reviewed. No pertinent past medical history. History reviewed. No pertinent surgical history. Social History Tobacco Use Smoking status: Current Every Day Smoker Smokeless tobacco: Never Used Substance Use Topics Alcohol use: Not on file Drug use: Not on file No family history on file. Allergies Allergen Reactions Eliquis [Apixaban] Rash Plavix [Clopidogrel Bisulfate] Rash Terramycin [Oxytetracycline] Unknown - See comments Pt states he blacks out Warfarin Rash Xarelto [Rivaroxaban] Rash ROS A 12 point ROS was done pertinent positives have been discussed in HPI ,other review of system is negative. Medications: Current Facility-Administered Medications Medication Dose Route Frequency Last Rate Last Dose dextrose 50 % in water (D50W) injection 25 mL 25 mL Slow IV Push PRN glucagon (GLUCAGEN DIAGNOSTIC KIT) injection 1 mg 1 mg Intramuscular PRN pantoprazole (PROTONIX) 40 mg in NaCl 0.9% (NS) 100 mL MINI-BAG 40 mg IV Piggyback Q12H Physical Exam BP: (87-135)/(31-85) Temp: [36.5 C (97.7 F)-37.6 C (99.7 F)] Temp source: Tympanic (12/21 1600) Pulse: [74-87] Resp: [12-23] SpO2: [94 %-100 %] Height: [172.7 cm (5' 8")] Weight: [74.8 kg (165 lb)-75 kg (165 lb 5.5 oz)] BMI (calculated): [0-25.14] Wt Readings from Last 3 Encounters: 12/22/19 75 kg (165 lb 5.5 oz) General: no acute distress and alert HEENT: NC/AT Cardiovascular: Heart regular, rate, rhythm, no murmurs; +1 bipedal edema Respiratory: clear to auscultation, no respiratory distress GI: abd soft, non-tender, non-distended, +BS, no HSM Access: AVF Intake/Output Summary (Last 24 hours) at 12/22/2019 1646 Last data filed at 12/22/2019 1336 Gross per 24 hour Intake 566 ml Output Net 566 ml Assessment and Plan: 74 year old male with PMHx SMA stenosis s/p stent placement, CAD, HLD, HTN and ESRD -on HD-MWF # ESRD 2/2 HTN Will do HD today for solute and volume removal without using heparin he has active bleeding for GI. # Hypertension: BP 155/45- -High side C/w home medication will observe Goal BP inESRD <= 130/80 # Anemia of chronic disease, Hgb 8.2 g/dl Plan: Iron study is not available, Please iron studies Epogen 8000 Units during HD # Uremia -Currently appearing asymptomatic -Will dialysis today, we will evaluate on a daily basis # Mtabolic bone disease, Continue binders with meals Repeat PTH, phosphorous and calcium Thanks for allowing us to participated in the patient care, please contact me or nephrology dept. for any question or concern Patient seen, examined and discussed with attending hand gluer and slicer OSCAR Mccauley, Nephrology and Hypertension fellow Pager: [phone] signed by Tom Seo MBBS at 12/24/2019 12:53 PM CDT Associated attestation - Tom Seo MBBS - 12/24/2019 12:53 PM CDTI personally examined the patient on 12/22/[address] Guzman's note as written I activelyparticipated in the decision-making process. Please see the fellow's note for additional details. Tom Seo MD Doctor # [id number] Pager # [phone], Liane Greco MD - 12/22/2019 4:06 PM CDTAssociated Order(s): CONSULT GASTROENTEROLOGY Department of Gastroenterology & Hepatology Consult Note Requesting Physician: Rudy Billings MD Service: MICU Reason for Consultation: please give recommendation or opinion on: Rosales Sandoval is a 74 year old male with PMH of SMA stenosis s/p stent and ESRD on HD MWF who presents with acute LGIB from the splenic flexure. Please evaluate and give recommendations on management. Date of Service: 12/22/2019 CHIEF COMPLAINT: Bloody diarrhea History of Present Illness Rosales Sandoval is a 74 year old /White male with past medical history CAD, PVD, SMA stenosis s/p stent placement, ESRD on HD, AVF banding for steal syndrome (05/2019x 2), who presents with complaints of bloody diarrhea that began early in the morning and persisted throughout the morning sohe went to the ER in [facility]. Reports left sided abdominal pain that is sharp in nature. No previous GIB. Was being worked up for chronic diarrhea by a customer sales distributor and scheduled for EGD/colonoscopy but cancelled due to COVID. Does not take NSAIDs, takes Tylenol for pain. No FH CRC, stomach cancer. Not on blood thinners, says he is allergic to Plavix (itching and hives). In addition to hematochezia has some LLQ abdominal pain that began after bloody BM occurred. No f/c,n/v, hematemesis, melena. At [facility] ER, presented hemodynamically stable, Hgb there as 7.6, received 1u pRBC, Hgb here is 8.0. CTwith IV contrast showed active bleeding at splenic flexure. PAST MEDICAL HISTORY Past Medical History: Diagnosis Date ESRD (end stage renal disease) on dialysis Peripheral vascular disease PAST SURGICAL HISTORY Past Surgical History: Procedure Laterality Date ARTERIOVENOUS FISTULA CREATION FAMILY HISTORY Family History Problem Relation Age of Onset No Significant Medical Problems Mother No Significant Medical Problems Father No Significant Medical Problems Sister No Significant Medical Problems Brother ALLERGIES Allergies Allergen Reactions Eliquis [Apixaban] Rash Plavix [Clopidogrel Bisulfate] Rash Terramycin [Oxytetracycline] Unknown - See comments Pt states he blacks out Warfarin Rash Xarelto [Rivaroxaban] Rash MEDICATIONS reviewed SOCIAL HISTORY Smoking 2-3ppd for 65 years Alcohol social Drugs never ROS: General: (-) fever, (-) chills, (-) weight change HEENT: (-) headache, (-) vision changes (-) sore throat Resp: (-) cough, (-) shortness of breath Cardio: (-) chest pain, (-) palpitations GI: per HPI : (-) dysuria, (-) increased urinary frequency Endo: (-) polyuria (-) polydipsia Neuro: (-) numbness, (-) weakness PHILLIP: (-) muscle pain, (-) joint pain Skin: (-) rash, (-) lesion Heme: (-) bleeding disorder Psych: (-) anxiety , (-) depression PE: BP 106/62 | Pulse 75 | Temp 37.1 C (98.8 F) (Tympanic) | Resp 21 | Ht 1.727 m (5' 8") | Wt 75 kg (165 lb 5.5 oz) | SpO2 92% | BMI 25.14 kg/m General: comfortable and in no acute distress HEENT: no scleral icterus, no conjunctival pallor Neck: no rigidity, supple Cardiovascular: RRR Respiratory: non-labored Gastrointestinal: Ext: no edema Skin: no rash Neurologic: grossly non-focal Psychiatric: normal affect LABORATORY: INR 1.3 WBC 13.25, Hgb 8.0, MCV 92.6, Plt 137 Na 132, K 4.3, BUN 34, Cr 8.09 Lipase <10 Albumin 3.0 Alk phos 101, ALT 6, AST 14, T. Bili 0.7 RADIOLOGY: CT A/P (12/21): 1. Active GI bleeding site confirmed in the splenic flexure region. Active extravasation of contrast medium is seen during arterial as well as venous phases. There is congestion of the surrounding fat. Findings are consistent with ischemic colitis with questionable focal extraluminal air accumulation in the congested fat surrounding the splenic flexure. No free intraperitoneal air detected.. Small amount of free fluid noted in the lower abdomen and surrounding the liver. 2. Evidence of previous abdominal surgeries including bowel resection and aortobifemoral bypass. 3. S/P right nephrectomy. Severe atrophy of left kidney with numerous cystic lesions. 4. Thrombosed inferior vena cava. S/P cholecystectomy. 5. Small bilateral pleural effusion and atelectatic changes in the left lower lung. 6. Pigtail catheter is seen in the gastric lumen lumen extending into the retrogastric region. CHART REVIEW: Previous Endoscopy: none ASSESSMENT and PLAN Rosales Sandoval is a 74 year old male with PMH as listed above, GI consulted for Bloody diarrhea with some abdominal pain. Patient with significant vascular disease and SMA stenosis in the past presentation is concerning for ischemic colitis vs bleeding diverticulosis. Hematochezia Abdominal pain, LLQ -2 large bore IV lines -Monitor Hgb q6-8h, transfuse to maintain Hgb > 7 -keep NPO - if patient actively bleeds overnight, notify IR. Contacted IR faculty and fellow and are aware of patient. - plan for colonoscopy tomorrow, use orderset 551 for bowel prep orders. - Monitor pace and character of BM. If patient rebleeds or develops hemodynamic instability, contactGI fellow legislative correspondent with any changes Patient was seen and discussed with Dr. Hernández Please call with any questions. Liane Lopez MD Gastroenterology and Hepatology Fellow Pager #[phone] Associated attestation - Antonio Hernández MD - 12/22/2019 7:30 PM CDTI personally examined the patient on 12/22/[address] Lopez's resident/fellow note as written . I actively participated in the decision- making process. Of note in CT angio is question of extraluminal air in fat surrounding splenic flexure. Will review with radiology before proceeding with colonoscopy. Please see the resident's note for additional details. documented in this encounter ED Notes Phyllis Hicks RN - 12/22/2019 10:50 AM CDT74 year old male coming to the ER for GI bleeding. Patient report bright red stool . Patient has bilateral fistula with 20 G IV placed 20 WEIGHT CALCULATOR. documented in this encounter Miscellaneous Notes Care Plan - Latisha Tay RN - 12/26/2019 2:23 PM CDTDischarge instr ursing Note - Araceli Mcclain RN - 12/26/2019 11:55 AM CDTHEMODIALYSIS NURSING NOTE Number Hours: 3.0 hours Bath: Dialysate: 2K 3Ca+ (standard dialysate) Heparin: zero Access: right Catheter permanent IJ Current Access Type: Tunneled (permanent) Weight: Net Ultrafiltrate - Post Treatment Net ultrafiltrate (mL) post dialysis treatment: 2000 mL Post BP 159/77, Post P 81 Antibiotics/Medications Given: Epogen 8000 units IV Complications/Events of Treatment: na Written handoff report completed and attached to the patient chart. Mode of Transport Back to Unit: bed See hemodialysis flowsheet for details of treatment. are Plan - Araceli Mcclain RN - 12/26/2019 8:28 AM CDTHemodialysis: consent verification, pt identified by name & UH number by 2 staff members, call light in reach. Education: HD UF time & goal, s/s to report to healthcare team during and post treatment: Nausea/vomiting Muscle cramping Headache Low blood pressure Weakness Dizziness Blurred vision Bleeding at access site are Plan - Tom Castaneda RN - 12/25/2019 5:21 PM CDT Problem: Bleeding, Risk of Goal: Absence of impaired coagulation signs and symptoms Outcome: Progressing as expected Goal: Absence of active bleeding Outcome: Progressing as expected Problem: Procedure Routine Goal: Knowledge of procedure Outcome: Progressing as expected are Rosalba - Benjie Guaman RN - 12/25/2019 3:15 AM CDT Problem: Bleeding, Risk of Goal: Absence of impaired coagulation signs and symptoms Outcome: Progressing as expected Goal: Absence of active bleeding Outcome: Progressing as expected Problem: Procedure Routine Goal: Knowledge of procedure Outcome: Progressing as expected are Plan - Jada Gallegos RN - 12/24/2019 6:18 PM CDTPatient progressing as expected on all points. ursing Note - Marcelle Lawson RN - 12/23/2019 8:48 PM CDTHEMODIALYSIS NURSING NOTE Number Hours: 3.0 hours Bath: 2K 3 Calcium (standard dialysate) Heparin: zero Access: right Catheter permanent IJ -- port reversed for tx Net UF: 2.0 L Weight: pre 76 kg, post 74.0 kg (per patient's bed scale; may be inaccurate) EDW per patient: 72 kg Post BP 174/71 Post Pulse 75 Antibiotics/Medications Given: Epogen 8000 units IV Complications/Events of Treatment: none. Patient tolerated treatment well. Verbal report to: KATY Thomas Mode of Transport Back to Unit: NA - patient done at bedside, [id number] See hemodialysis flowsheet for details of treatment. are Plan - Hlaey Crews RN - 12/23/2019 6:22 PM CDTHemodialysis Plan of care reviewed r/t treatment time & UF goal. Also reviewed possible side effects of HD tx, such as s/s of hypotension, cramping (during tx and at rare times after tx), N/V, CP or any other concerns. Patient acknowledge understanding of treatment plan. Care Plan - Atif Marion RN - 12/23/2019 9:07 AM CDT Problem: Bleeding, Risk of Goal: Absence of impaired coagulation signs and symptoms 12/23/2019906 by Atif Marion, RN Outcome: Progressing as expected 12/22/2019 194 by Atif Marion, RN Outcome: Progressing as expected Goal: Absence of active bleeding 12/23/2019906 by Atif Marion, RN Outcome: Progressing as expected 12/22/20191947 by Atif Marion RN Outcome: Progressing as expected are Plan - Atif Marion RN - 12/22/2019 7:48 PM CDT Problem: Bleeding, Risk of Goal: Absence of impaired coagulation signs and symptoms Outcome: Progressing as expected Goal: Absence of active bleeding Outcome: Progressing as expected D Nurse Note - Phyllis Hicks RN - 12/22/2019 2:27 PM CDTReport Given to Katy Srivastava. Patient going to [place]. D Nurse Note - Jessie Cheek RN - 12/22/2019 2:03 PM [facility] report given to macroeconomics professor. D Nurse Note - Phyllis Hicks RN - 12/22/2019 1:53 PM CDTPatient being continuously monitor without incident. D Nurse Note - Phyllis Hicks RN - 12/22/2019 1:45 PM CDTBlood transfusion started at 1340, consent obtain. Patient verified with two nurses. Patient being continuously monitored. D Nurse Note - Jessie Cheek RN - 12/22/2019 1:44 PM CDTContacted [facility]. D Nurse Note - Phyllis Hicks RN - 12/22/2019 1:27 PM CDTCalled Blood Bank Waiting for Blood. D Nurse Note - Gabby Quesada RN - 12/22/2019 11:11 AM CDTSignificant other: Sharmin Knox Contact info: [phone] Passcode: Beer documented in this encounter Plan of Treatment Name Type Priority Associated Diagnoses Date/Ti me BLOOD CULTURE SCREEN LAB NAVYA 020 11:02 PM CDT BLOOD CULTURE SCREEN LAB NAVYA 020 10:26 PM CDT Name Type Priority Associated Diagnoses Order S chedule URINALYSIS LAB Routine Gastrointestinal ONCE for 1 Occurrences hemorrhage, unspecified star ting 12/22/2019 gastrointestinal hemorrhage until 12/22/2019 type CBC WITHOUT DIFF LAB NAVYA EVERY 8 JAYA RS (START TIME ADJUSTABLE ) for 1 Days starting 12/24/2019 unti l 12/25/2019, 2 completed CBC WITHOUT DIFF LAB Routine EVERY MORNI NG AT 0400 for 1 Weeks sta rting 12/26/2019 unti l 01/01/2020, 1 completed BASIC METABOLIC PANEL LAB Routine EVERY MORNING AT 0400 (NA, K, CL, CO2, for 1 Weeks starting GLUCOSE, BUN, 12/26/2019 unt il CREATININE, CA) 01/01/2020, 1 completed Health Maintenance Due Date Last Done Comments [...] of this encounter Implants Implanted Type Area Hat Blocking Operator Device Shelf Model / Identifier Expiration Serial / Lot Date Right Groin Closure Device Insert Right: Zamora 03/2020 [employer] SE 6FR / Implanted: Qty: 1 on 12/23/2019 at [facility] [employer] [facility] [id number] / [id number] documented as of this encounter Procedures Procedure Name Priority Date/Time Associated Diagnosis Comme nts CBC WITHOUT DIFF Routine 12/26/2019 6:20 Results for this AM CDT procedure are i n the results section. BASIC METABOLIC PANEL Routine 12/26/2019 6:19 Re sults for this (NA, K, CL, CO2, AM CDT procedure a re in GLUCOSE, BUN, the results CREATININE, CA) section. CBC WITHOUT DIFF Routine 12/25/2019 5:30 Results for this AM CDT procedure are i n the results section. BASIC METABOLIC PANEL Routine 12/25/2019 5:30 Re sults for this (NA, K, CL, CO2, AM CDT procedure a re in GLUCOSE, BUN, the results CREATININE, CA) section. CBC WITHOUT DIFF NAVYA 12/24/2019 8:31 Results for this PM CDT procedure are i n the results section. TRANSFUSE PACKED RBC Routine 12/24/2019 2:37 PM CDT PREPARE PACKED RBC Routine 12/24/2019 12:24 Resul ts for this PM CDT procedure are i n the results section. CBC WITHOUT DIFF NAVYA 12/24/2019 11:33 Results for this AM CDT procedure are i n the results section. ECHO ROUTINE Routine 12/24/2019 10:00 Murmur W/DOPPLER COLOR AM CDT FIBRINOGEN STAT 12/24/2019 6:41 Results for this AM CDT procedure are i n the results section. ACTIVATED PARTIAL STAT 12/24/2019 6:41 Result s for this THRMPLAS DEMARCO AM CDT procedure are i n the results section. PROTHROMBIN TIME / STAT 12/24/2019 6:41 Resul ts for this INR AM CDT procedure are i n the results section. POCT GLUCOSE Routine 12/24/2019 3:58 Results for this (AUTOMATED) AM CDT procedure are i n the results section. CBC WITHOUT DIFF NAVYA 12/24/2019 3:49 Results for this AM CDT procedure are i n the results section. BASIC METABOLIC PANEL NAVYA 12/24/2019 3:49 Re sults for this (NA, K, CL, CO2, AM CDT procedure a re in GLUCOSE, BUN, the results CREATININE, CA) section. FERRITIN SERUM Add-on 12/24/2019 3:49 Results f or this AM CDT procedure are i n the results section. POCT GLUCOSE Routine 12/23/2019 10:52 Results for this (AUTOMATED) PM CDT procedure are i n the results section. POCT GLUCOSE Routine 12/23/2019 10:21 Results for this (AUTOMATED) PM CDT procedure are i n the results section. CBC WITHOUT DIFF NAVYA 12/23/2019 9:44 Results for this PM CDT procedure are i n the results section. HEPATITIS B SURFACE NAVYA 12/23/2019 5:54 Resu lts for this ANTIBODY PM CDT procedure are i n the results section. IRON PANEL NAVYA 12/23/2019 5:54 Results for this PM CDT procedure are i n the results section. POCT GLUCOSE Routine 12/23/2019 1:45 Results for this (AUTOMATED) PM CDT procedure are i n the results section. CBC WITHOUT DIFF NAVYA 12/23/2019 1:25 Results for this PM CDT procedure are i n the results section. POCT GLUCOSE Routine 12/23/2019 11:54 Results for this (AUTOMATED) AM CDT procedure are i n the results section. POCT GLUCOSE Routine 12/23/2019 11:26 Results for this (AUTOMATED) AM CDT procedure are i n the results section. IR ANGIOGRAM VISCERAL NAVYA 12/23/2019 10:31 Lower GI bleed Results for this AM CDT procedure are i n the results section. HEPATITIS B SURFACE Add-on 12/23/2019 7:34 Resu lts for this ANTIGEN AM CDT procedure are i n the results section. BASIC METABOLIC PANEL STAT 12/23/2019 7:34 Re sults for this (NA, K, CL, CO2, AM CDT procedure a re in GLUCOSE, BUN, the results CREATININE, CA) section. CBC WITHOUT DIFF NAVYA 12/23/2019 4:33 Results for this AM CDT procedure are i n the results section. TRANSFUSE PACKED RBC Routine 12/23/2019 2:43 AM CDT DISCLOSURE AND Routine 12/23/2019 12:01 CONSENT, MEDICAL AND AM CDT SURGICAL PROCEDURES PREPARE PACKED RBC Routine 12/22/2019 11:25 Resul ts for this PM CDT procedure are i n the results section. BLOOD CULTURE SCREEN NAVYA 12/22/2019 11:02 PM CDT BLOOD CULTURE SCREEN NAVYA 12/22/2019 10:26 PM CDT CBC WITHOUT DIFF NAVYA 12/22/2019 10:25 Results for this PM CDT procedure are i n the results section. HB ABO GROUPING STAT 12/22/2019 4:35 Results for this PM CDT procedure are i n the results section. CBC WITHOUT DIFF NAVYA 12/22/2019 4:25 Results for this PM CDT procedure are i n the results section. MRSA / MSSA SCREEN BY NAVYA 12/22/2019 4:20 Re sults for this PCR, NARES PM CDT procedure are i n the results section. PREPARE PACKED RBC Routine 12/22/2019 1:35 Gastrointestinal R esults for this PM CDT hemorrhage, unspecified proc edure are in gastrointestinal the results hemorrhage type section. Acute blood loss anemia ABORH CONFIRMATION Routine 12/22/2019 12:21 Resul ts for this PM CDT procedure are i n the results section. COVID-19 (ID NOW STAT 12/22/2019 12:18 Gastrointestinal Res ults for this RAPID TESTING) PM CDT hemorrhage, unspecified pr ocedure are in gastrointestinal the results hemorrhage type section. CT ABDOMEN PELVIS W STAT 12/22/2019 12:04 Gastrointestinal Results for this WO CONTRAST PM CDT hemorrhage, unspecified proc edure are in gastrointestinal the results hemorrhage type section. HB ABO GROUPING Routine 12/22/2019 11:22 Gastrointestinal Resu lts for this AM CDT hemorrhage, unspecified proc edure are in gastrointestinal the results hemorrhage type section. ACTIVATED PARTIAL STAT 12/22/2019 11:11 Gastrointestinal Re sults for this THRMPLAS DEMARCO AM CDT hemorrhage, unspecified proc edure are in gastrointestinal the results hemorrhage type section. PROTHROMBIN TIME / STAT 12/22/2019 11:11 Gastrointestinal R esults for this INR AM CDT hemorrhage, unspecified proc edure are in gastrointestinal the results hemorrhage type section. CBC WITH DIFF STAT 12/22/2019 11:10 Gastrointestinal Result s for this AM CDT hemorrhage, unspecified proc edure are in gastrointestinal the results hemorrhage type section. COMP. METABOLIC PANEL STAT 12/22/2019 11:10 Gastrointestina l Results for this (27948) AM CDT hemorrhage, unspecified proc edure are in gastrointestinal the results hemorrhage type section. LIPASE STAT 12/22/2019 11:10 Gastrointestinal Results for this AM CDT hemorrhage, unspecified proc edure are in gastrointestinal the results hemorrhage type section. NOTICE OF PRIVACY Routine 12/22/2019 11:00 PRACTICES AM CDT CONSENT/REFUSAL FOR Routine 12/22/2019 10:59 DIAGNOSIS AND AM CDT TREATMENT AGREEMENTS Routine 12/22/2019 12:01 AUTHORIZATIONS AND AM CDT IRREVOCABLE ASSIGNMENTS (FORM 2001) CONSENT/REFUSAL FOR Routine 12/22/2019 12:01 DIAGNOSIS AND AM CDT TREATMENT documented in this encounter Results CBC WITHOUT DIFF (12/26/2019 6:20 AM CDT) Pathologist Sig nature WBC 6.16 4.20 - 10.70 [facility] 10*3/L SERVICES RBC 3.06 (L) 4.26 - 5.52 [facility] 10*6/L SERVICES HGB 9.0 (L) 12.2 - 16.4 g/dL [facility] HCT 27.0 (L) 38.4 - 49.3 % [facility] MCH 29.4 26.1 - 32.7 pg [facility] MCV 88.2 81.7 - 95.6 fL [facility] MCHC 33.3 31.2 - 35.0 g/dL [facility] PLT 167 150 - 328 10*3/L [facility] MPV 10.4 9.8 - 13.0 fL [facility] RDW-CV 20.1 (H) 12.1 - 15.4 % [facility] RDW-SD 65.1 (H) 38.5 - 51.6 fL [facility] NRBC x10^3 <0.01 10*3/L [facility] NRBC/100 WBC 0.0 0.0 - 10.0 /100 [facility] WBCs SERVICES IPF % [facility] Specimen Blood - VENOUS Performing Organization Address City/State/Zipcode Phone Number [facility] CLIA: [id number] [place] [address] [place] [address] BASIC METABOLIC PANEL (NA, K, CL, CO2, GLUCOSE, BUN, CREATININE, CA) (12/26/2019 6:19 AM CDT) NA 133 (L) 135 - 145 [facility] LABORATORY mmol/L SERVICES K 4.5 3.5 - 5.0 [facility] LABORATORY mmol/L SERVICES CL 96 (L) 98 - 108 mmol/L [facility]ORAT[facility] SERVICES CO2 TOTAL 25 23 - 31 mmol/L [facility] SERVICES AGAP 12 2 - 16 [facility] SERVICES BUN 43 (H) 7 - 23 mg/dL [facility] SERVICES GLUCOSE 69 (L) 70 - 110 mg/dL [facility] SERVICES CREATININE 9.65 (H) 0.60 - 1.25 [facility] LABORATORY mg/dL SERVICES CALCIUM 8.2 (L) 8.6 - 10.6 [facility] LABORATORY mg/dL SERVICES eGFR Calculation 5.3 mL/min/1.73m2 [facility] LABORATORY (Non- SERVICES Russian) eGFR Calculation 6.5 mL/min/1.73m2 [facility] LABORATORY () SERVICES Specimen Blood - VENOUS Narrative Performed At Association of Glomerular Filtration Rate (GFR) and St aging [facility] LABORATORY SERVICES of Kidney Disease* + + +------- ------ + | GFR (mL/min/1.73 m2) | With Kidney Damage | Wi thout Kidney Damage + + +------- ------ + | >90 | Stage one | Normal + + +------- ------ + | 60-89 | Stage two | Decreased GFR + + +------- ------ + | 30-59 | Stage three | Stage three + + +------- ------ + | 15-29 | Stage four | Stage four + + +------- ------ + | <15 (or dialysis) | Stage five | Stage five + + +------- ------ + *Each stage assumes the associated GFR level has been in effect for at least three months. Stages 1 to 5, wit h or without kidney disease, indicate chronic kidney disease. Notes: Determination of stages one and two (with eGFR >59mL/min/1.73 m2) requires estimation of kidney damag e for at least three months as defined by structural or func tional abnormalities of the kidney, manifested by either: Pathological abnormalities or Markers of kidney damage (including abnormalities in the composition of the blo od or urine or abnormalities in imaging tests) . Performing Organization Address City/State/Zipcode Phone Number [facility] LABORATORY SERVICES CLIA: [id number] [place] [address] [place] [address] BASIC METABOLIC PANEL (NA, K, CL, CO2, GLUCOSE, BUN, CREATININE, CA) (12/25/2019 5:30 AM CDT) NA 132 (L) 135 - 145 [facility] LABORATORY mmol/L SERVICES K 4.5 3.5 - 5.0 [facility] LABORATORY mmol/L SERVICES CL 96 (L) 98 - 108 mmol/L [facility]ORAT[facility] SERVICES CO2 TOTAL 25 23 - 31 mmol/L [facility]ORAT[facility] SERVICES AGAP 11 2 - 16 [facility] SERVICES BUN 37 (H) 7 - 23 mg/dL [facility] SERVICES GLUCOSE 72 70 - 110 mg/dL [facility] SERVICES CREATININE 7.79 (H) 0.60 - 1.25 [facility] mg/dL SERVICES CALCIUM 8.0 (L) 8.6 - 10.6 [facility] mg/dL SERVICES eGFR Calculation 6.8 mL/min/1.73m2 [facility] LABORATORY (Non- SERVICES Russian) eGFR Calculation 8.3 mL/min/1.73m2 [facility] () SERVICES Specimen Blood - VENOUS Narrative Performed At Association of Glomerular Filtration Rate (GFR) and St aging [facility] LABORAT[facility] SERVICES of Kidney Disease* + + +------- ------ + | GFR (mL/min/1.73 m2) | With Kidney Damage | Wi thout Kidney Damage + + +------- ------ + | >90 | Stage one | Normal + + +------- ------ + | 60-89 | Stage two | Decreased GFR + + +------- ------ + | 30-59 | Stage three | Stage three + + +------- ------ + | 15-29 | Stage four | Stage four + + +------- ------ + | <15 (or dialysis) | Stage five | Stage five + + +------- ------ + *Each stage assumes the associated GFR level has been in effect for at least three months. Stages 1 to 5, wit h or without kidney disease, indicate chronic kidney disease. Notes: Determination of stages one and two (with eGFR >59mL/min/1.73 m2) requires estimation of kidney damag e for at least three months as defined by structural or func tional abnormalities of the kidney, manifested by either: Pathological abnormalities or Markers of kidney damage (including abnormalities in the composition of the blo od or urine or abnormalities in imaging tests) . Performing Organization Address City/State/Zipcode Phone Number [facility]AT[facility] SERVICES CLIA: [id number] [place] [address] [place] [address] CBC WITHOUT DIFF (12/25/2019 5:30 AM CDT) Pathologist Sig nature WBC 6.71 4.20 - 10.70 [facility] LAB[facility]ATORY 10*3/L SERVICES RBC 3.14 (L) 4.26 - 5.52 [facility] 10*6/L SERVICES HGB 9.0 (L) 12.2 - 16.4 g/dL [facility] SERVICES HCT 27.3 (L) 38.4 - 49.3 % [facility] SERVICES MCH 28.7 26.1 - 32.7 pg [facility] MCV 86.9 81.7 - 95.6 fL [facility] MCHC 33.0 31.2 - 35.0 g/dL [facility] PLT 165 150 - 328 10*3/L [facility] MPV 10.1 9.8 - 13.0 fL [facility] RDW-CV 20.4 (H) 12.1 - 15.4 % [facility] RDW-SD 63.9 (H) 38.5 - 51.6 fL [facility] NRBC x10^3 <0.01 10*3/L [facility] NRBC/100 WBC 0.0 0.0 - 10.0 /100 [facility] WBCs SERVICES IPF % [facility] SERVICES Specimen Blood - VENOUS Performing Organization Address City/State/Zipcode Phone Number [facility] SERVICES CLIA: [id number] [place] [address] [place] [address] CBC WITHOUT DIFF (12/24/2019 8:31 PM CDT) Pathologist Sig nature WBC 7.02 4.20 - 10.70 [facility] 10*3/L SERVICES RBC 3.09 (L) 4.26 - 5.52 [facility] 10*6/L SERVICES HGB 8.9 (L) 12.2 - 16.4 g/dL [facility] HCT 27.1 (L) 38.4 - 49.3 % [facility] MCH 28.8 26.1 - 32.7 pg [facility] MCV 87.7 81.7 - 95.6 fL [facility] MCHC 32.8 31.2 - 35.0 g/dL [facility] PLT 156 150 - 328 10*3/L [facility] MPV 10.3 9.8 - 13.0 fL [facility] RDW-CV 20.3 (H) 12.1 - 15.4 % [facility] RDW-SD 64.7 (H) 38.5 - 51.6 fL [facility] NRBC x10^3 <0.01 10*3/L [facility] NRBC/100 WBC 0.0 0.0 - 10.0 /100 [facility] WBCs SERVICES IPF % [facility] Specimen Blood - VENOUS Performing Organization Address City/State/Zipcode Phone Number [facility] SERVICES CLIA: [id number] [place] [address] [place] [address] Prepare Packed RBC (in units), 1 Units (12/24/2019 12:24 PM CDT) Cross Match Result Compatible LAB ISBT Blood Type Code 5100 LAB Unit Blood Type O Pos LAB Unit Number [id number] LAB Blood Expiration Date & LAB Time Status Information Issued LAB Product Identification Red Blood Cells LAB Product Code [id number] LAB Comment: Performed at [facility] Laboratory Services - [facility] Blood Bank [address] [place] [address] Toll Free: [phone] CLIA No. [id number] Specimen Performing Organization Address [facility] Phone Number D LAB CBC WITHOUT DIFF (12/24/2019 11:33 AM CDT) Pathologist Sig nature WBC 7.33 4.20 - 10.70 [facility]ORAT[facility] 10*3/L SERVICES RBC 2.79 (L) 4.26 - 5.52 [facility] 10*6/L SERVICES HGB 8.0 (L) 12.2 - 16.4 g/dL [facility] SERVICES HCT 24.3 (L) 38.4 - 49.3 % [facility] SERVICES MCH 28.7 26.1 - 32.7 pg [facility] SERVICES MCV 87.1 81.7 - 95.6 fL [facility] SERVICES MCHC 32.9 31.2 - 35.0 g/dL [facility] SERVICES PLT 161 150 - 328 10*3/L [facility] SERVICES MPV 10.1 9.8 - 13.0 fL [facility] SERVICES RDW-CV 21.3 (H) 12.1 - 15.4 % [facility] SERVICES RDW-SD 67.8 (H) 38.5 - 51.6 fL [facility] SERVICES NRBC x10^3 <0.01 10*3/L [facility] NRBC/100 WBC 0.0 0.0 - 10.0 /100 [facility] WBCs SERVICES IPF % [facility] SERVICES Specimen Blood - VENOUS Performing Organization Address City/State/Zipcode Phone Number [facility] SERVICES CLIA: [id number] [place] [address] [phone] 301 [facility] FIBRINOGEN (12/24/2019 6:41 AM CDT) Pathologist Sig nature Fibrinogen 369 167 - 453 mg/dL [facility]ORAT[facility] SERVICES Specimen Blood - ARTERIAL Performing Organization Address City/[facility]/Zipcode Phone Number [facility] SERVICES CLIA: [id number] [place] [address] [phone] 301 [facility] aPTT (12/24/2019 6:41 AM CDT) Pathologist Sig nature APTT Patient 31 26 - 36 Seconds [facility] SERVICES Specimen Blood - ARTERIAL Performing Organization Address [facility]/Zipcode Phone Number [facility] SERVICES CLIA: [id number] [place] [address] [phone] 301 [facility] PROTHROMBIN TIME / INR (12/24/2019 6:41 AM CDT) PROTIME PATIENT 12.2 10.1 - 12.6 [facility] Seconds SERVICES INR 1.1Comment: Normal [facility] INR <1.1; Warfarin SERVICES Therapeutic range 2.0 to 3.0 or 2.5 to 3.5, depending upon the indications. Specimen Blood - ARTERIAL Performing Organization Address [facility] Cent[facility] Phone Number [facility] SERVICES CLIA: [id number] [place] [address] [phone] 301 [facility] POCT GLUCOSE (AUTOMATED) (12/24/2019 3:58 AM CDT) Pathologist Sig [facility] POCT GLU 72 70 - 110 mg/dL [facility] Specimen Blood Performing Organization Address City/[facility]/Zipcode Phone Number [facility] CLIA: [id number] [place] [address] [phone] [facility] Ferritin Serum (12/24/2019 3:49 AM CDT) Pathologist Sig nature FERRITIN 859.0 (H) 18.0 - 464.0 ng/mL [facility] LABORATORY SERVIC ES Specimen Blood - ARTERIAL Narrative Performed At Biotin has been reported to cause a negative bias, int erpret [facility] SERVICES results relative to patient's use of biotin. Performing Organization Address City/State/Zipcode Phone Number [facility] SERVICES CLIA: [id number] [place] [address] [place] [address] CBC WITHOUT DIFF (12/24/2019 3:49 AM CDT) Pathologist Sig nature WBC 6.89 4.20 - 10.70 [facility] 10*3/L SERVICES RBC 2.69 (L) 4.26 - 5.52 [facility] 10*6/L SERVICES HGB 7.7 (L) 12.2 - 16.4 g/dL [facility] SERVICES HCT 23.3 (L) 38.4 - 49.3 % [facility] SERVICES MCH 28.6 26.1 - 32.7 pg [facility] SERVICES MCV 86.6 81.7 - 95.6 fL [facility] SERVICES MCHC 33.0 31.2 - 35.0 g/dL [facility] SERVICES PLT 138 (L) 150 - 328 10*3/L [facility] SERVICES MPV 11.0 9.8 - 13.0 fL [facility] SERVICES RDW-CV 21.7 (H) 12.1 - 15.4 % [facility] SERVICES RDW-SD 68.5 (H) 38.5 - 51.6 fL [facility] SERVICES NRBC x10^3 <0.01 10*3/L [facility] SERVICES NRBC/100 WBC 0.0 0.0 - 10.0 /100 [facility] WBCs SERVICES IPF % [facility] SERVICES Specimen Blood - ARTERIAL Performing Organization Address City/State/Zipcode Phone Number [facility] SERVICES CLIA: [id number] [place] [address] [place] [address] BASIC METABOLIC PANEL (NA, K, CL, CO2, GLUCOSE, BUN, CREATININE, CA) (12/24/2019 3:49 AM CDT) NA 131 (L) 135 - 145 [facility] mmol/L SERVICES K 4.2 3.5 - 5.0 [facility] mmol/L SERVICES CL 95 (L) 98 - 108 mmol/L [facility] SERVICES CO2 TOTAL 30 23 - 31 mmol/L [facility] SERVICES AGAP 6 2 - 16 [facility] SERVICES BUN 29 (H) 7 - 23 mg/dL [facility] SERVICES GLUCOSE 67 (L) 70 - 110 mg/dL [facility] SERVICES CREATININE 6.00 (H) 0.60 - 1.25 [facility] mg/dL SERVICES CALCIUM 8.0 (L) 8.6 - 10.6 [facility] mg/dL SERVICES eGFR Calculation 9.2 mL/min/1.73m2 [facility] (Non- SERVICES Russian) eGFR Calculation 11.2 mL/min/1.73m2 [facility] () SERVICES Specimen Blood - ARTERIAL Narrative Performed At Association of Glomerular Filtration Rate (GFR) and St aging [facility] SERVICES of Kidney Disease* + + +------- ------ + | GFR (mL/min/1.73 m2) | With Kidney Damage | Wi thout Kidney Damage + + +------- ------ + | >90 | Stage one | Normal + + +------- ------ + | 60-89 | Stage two | Decreased GFR + + +------- ------ + | 30-59 | Stage three | Stage three + + +------- ------ + | 15-29 | Stage four | Stage four + + +------- ------ + | <15 (or dialysis) | Stage five | Stage five + + +------- ------ + *Each stage assumes the associated GFR level has been in effect for at least three months. Stages 1 to 5, wit h or without kidney disease, indicate chronic kidney disease. Notes: Determination of stages one and two (with eGFR >59mL/min/1.73 m2) requires estimation of kidney damag e for at least three months as defined by structural or func tional abnormalities of the kidney, manifested by either: Pathological abnormalities or Markers of kidney damage (including abnormalities in the composition of the blo od or urine or abnormalities in imaging tests) . Performing Organization Address City/[facility] Cent[facility]ode Phone Number [facility] CLIA: [id number] [place] [address] [place] [address] POCT GLUCOSE (AUTOMATED) (12/23/2019 10:52 PM CDT) Pathologist [facility] POCT GLU 107 70 - 110 mg/dL [facility] Specimen Blood Performing Organization Address [facility] Cent[facility]ode Phone Number [facility] CLIA: [id number] [place] [address] [place] [address] POCT GLUCOSE (AUTOMATED) (12/23/2019 10:21 PM CDT) Pathologist [facility] nature POCT GLU 56 (L) 70 - 110 mg/dL [facility] Specimen Blood Performing Organization Address City/[facility]/Zipcode Phone Number [facility] CLIA: [id number] [place], [place] [address] [address] [place] [address] CBC WITHOUT DIFF (12/23/2019 9:44 PM CDT) Pathologist Sig nature WBC 8.04 4.20 - 10.70 [facility] 10*3/L SERVICES RBC 2.87 (L) 4.26 - 5.52 [facility] 10*6/L SERVICES HGB 8.4 (L) 12.2 - 16.4 g/dL [facility] SERVICES HCT 25.0 (L) 38.4 - 49.3 % [facility] SERVICES MCH 29.3 26.1 - 32.7 pg [facility] SERVICES MCV 87.1 81.7 - 95.6 fL [facility] SERVICES MCHC 33.6 31.2 - 35.0 g/dL [facility] SERVICES PLT 142 (L) 150 - 328 10*3/L [facility] SERVICES MPV 11.2 9.8 - 13.0 fL [facility] SERVICES RDW-CV 21.7 (H) 12.1 - 15.4 % [facility] SERVICES RDW-SD 69.5 (H) 38.5 - 51.6 fL [facility] SERVICES NRBC x10^3 <0.01 10*3/L [facility] SERVICES NRBC/100 WBC 0.0 0.0 - 10.0 /100 [facility] WBCs SERVICES IPF % [facility] SERVICES Specimen Blood - ARTERIAL Performing Organization Address City/[facility]/Zipcode Phone Number [facility] SERVICES CLIA: [id number] [place] [address] [place] [address] Hepatitis B Surface Antibody (HBsAb) (12/23/2019 5:54 PM CDT) Pathologist Sig nature HBsAB Positive [facility] SERVICES HBsAb 122.00 mIU/mL [facility] Semi-Quantitative SERVICES Specimen Blood - LINE, ARTERIAL Narrative Performed At Interpretation: Hepatitis B Surface An tibody [facility] SERVICES Negative - Patient is considered to be not immu ne to infection with HBV. Positive - Anti-HBs detected at greater than or equal to 12 mIU/mL. Patient is considered to be immune to infection with HBV. Performing Organization Address City/[facility]/Zipcode Phone Number [facility] SERVICES CLIA: [id number] [place] [address] [place] [address] IRON PANEL (12/23/2019 5:54 PM CDT) Pathologist Sig nature IRON 34 (L) 50 - 160 ug/dL [facility] SERVICES TIBC 210 (L) 250 - 410 ug/dL [facility] SERVICES % FE SAT 16 (L) 20 - 50 % [facility] SERVICES Specimen Blood - LINE, ARTERIAL Performing Organization Address [facility] Phone Number [facility] CLIA: [id number] [place] [address] [place] [address] POCT GLUCOSE (AUTOMATED) (12/23/2019 1:45 PM CDT) Pathologist Sig [facility] POCT GLU 72 70 - 110 mg/dL [facility] Specimen Blood Performing Organization Address [facility] Phone Number [facility] CLIA: [id number] [place] [address] [place] [address] CBC WITHOUT DIFF (12/23/2019 1:25 PM CDT) Pathologist Sig nature WBC 9.06 4.20 - 10.70 [facility] 10*3/L SERVICES RBC 3.01 (L) 4.26 - 5.52 [facility] 10*6/L SERVICES HGB 8.7 (L) 12.2 - 16.4 g/dL [facility] SERVICES HCT 26.3 (L) 38.4 - 49.3 % [facility] SERVICES MCH 28.9 26.1 - 32.7 pg [facility] SERVICES MCV 87.4 81.7 - 95.6 fL [facility] SERVICES MCHC 33.1 31.2 - 35.0 g/dL [facility] SERVICES PLT 142 (L) 150 - 328 10*3/L [facility] SERVICES MPV 10.8 9.8 - 13.0 fL [facility] SERVICES RDW-CV 22.4 (H) 12.1 - 15.4 % [facility] SERVICES RDW-SD 71.2 (H) 38.5 - 51.6 fL [facility] SERVICES NRBC x10^3 <0.01 10*3/L [facility] SERVICES NRBC/100 WBC 0.0 0.0 - 10.0 /100 [facility] WBCs SERVICES IPF % [facility] SERVICES Specimen Blood - VENOUS Performing Organization Address City/State/Zipcode Phone Number [facility] CLIA: [id number] [place] [address] [place] [address] POCT GLUCOSE (AUTOMATED) (12/23/2019 11:54 AM CDT) Pathologist Sig nature POCT GLU 104 70 - 110 mg/dL [facility] Specimen Blood Performing Organization Address City/[facility] Phone Number [facility] CLIA: [id number] [place] [address] [place] [address] POCT GLUCOSE (AUTOMATED) (12/23/2019 11:26 AM CDT) Pathologist Sig nature POCT GLU 64 (L) 70 - 110 mg/dL [facility] Specimen Blood Performing Organization Address City/[facility] Phone Number [facility] CLIA: [id number] [place] [address] [place] [address] IR ANGIOGRAM VISCERAL (12/23/2019 10:31 AM CDT) Specimen Impressions Performed At PACS/VR/DOSE * No active contrast extravasation or pseudoaneurysm identified. 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 * Widely patent and unremarkable class ic branch vessel anatomy of the superior mesenteric artery with widely p atent superior mesenteric artery stent and without active contrast extrav asation or pseudoaneurysm. * Widely patent superior mesenteric artery branches, including the middle colic artery, without evidence of active extravasation or pseudoaneurysm. * Widely patent left colic artery and marginal artery of Debby. * The FELICITY is no longer present due to the patient's prior aortobiiliac stent. The entire colon is supplied by t he SMA. * There is generally slow antegrade ar terial flow in the SMA and its branches so any further/repeat bleeding is likely to stop on its own and repeat angiography is therefore unlikely to be helpful and not indicated in case of a rebleed. * Changes of severe peripheral vascula r disease including multifocal tandem moderate stenoses of the right ex ternal iliac artery and right common femoral artery and severe stenosi s of the origin of the right superficial femoral artery. Consider a s eparate interventional radiology consultation for further evaluation and possible inter vention if there is clinically symptomatic peripheral vascul ar disease. According to Executive Order [place] 09 and e mergency rule 22 [place] Administrative Code (TAC) ?187.57(c), this procedure w as deemed medically necessary to address a medical condition (lower GI bleed at the splenic flexure) which places this patient at [facility] for serious adverse medical consequences or . Preliminary Report Dictated by Resident: Lowell Brock. As the attending radiologist, I, Dr. Marian Muse, actively participated and was present in the room during the entire procedure. I, Coleman Muse MD., have reviewed this st udy and agree with the above report. Narrative Performed At EXAMINATION: VISCERAL ANGIOGRAPHY / IR A NGIOGRAM VISCERAL PACS/VR/DOSE HISTORY/INDICATION: 74 years year-old pa tient with lower GI bleed at the splenic flexure on CTA , now stable over night. ATTENDING : Dr. Coleman Muse. RESIDENT: Lowell Brock MD; Eva Hall MD; Sofia Johnson DO. PROCEDURES: 1. Ultrasound-guided access of the rig ht common femoral artery. Images were obtained and saved to PACS for inte rpretation. 2. Selective Celiac artery catheteriza tion with diagnostic angiogram (first order, with interpretation). 3. Selective Superior mesenteric artery catheterizat ion with diagnostic angiogram (first order, with interpretat ion). 4. Selective Distal jejunal arterial branch of super ior mesenteric artery catheterization with diagnostic angiogra m (third order, with interpretation). 5. Selective Proximal jejunal arterial branch of superior mesenteric artery catheterization with diagnostic a ngiogram (third order, with interpretation). 6. Selective middle colic artery catheterization wit h diagnostic angiogram (third order, with interpretation). 7. Selective distal middle colic artery catheterizat ion with diagnostic angiogram (additional third, with interp retation). 8. Right external iliac arteriogram (w ith interpretation). 9. Removal of right common femoral artery access she ath with deployment of StarClose closure device. SEDATION: Moderate sedation was administ ered under the attending physician's direction and continuous mon itoring by a trained nurse specialist who was independent from thos e actually performing the procedure. Please refer to the nursing n otes for total sedation time in [facility]. TECHNIQUE: The risks, benefits and alternatives were d iscussed and informed consent was obtained. Prior to beginning the procedure , [place] Protocol was performed to confirm the patient's identity and th e planned procedure. The fluoroscopy time has been recorded i n the electronic medical record. Maximum sterile barriers including cap, mask, hand hyg iene, sterile gloves, sterile gown, large sterile drape and 2% chlorhexidine for cutaneous antisepsis were used. After sterile prep, the skin over the [facility] common femoral artery was infiltrated with 1% Lidocaine and the vessel was acces sed using Seldinger technique. A 6 Armenian sheath was placed and connected to a heparinized saline drip. Using fluoroscopic guidance, the celiac artery was selected using a 5 Armenian catheter and selective digital tanner btraction arteriography was performed (with interpretation). Then, u sing the 5 Armenian catheter, the superior mesenteric artery was selected and selective digital subtraction arteriography was performed (with interpretation). The n, using a Progreat microcatheter and Fathom microwire, the proximal jejun al arterial branch of the superior mesenteric artery was selec akbar and selective digital subtraction arteriography was performed (with interpre tation). Then, using the microcatheter and microwire, the distal jejunal ar terial branch of the superior mesenteric artery was selected and selective digital subtraction arteriography was performed (with interp retation). Then, using the microcatheter and microwire, the middle colic artery was selected and selective digital subtraction arteriogra phy was performed (with interpretation). Then, the microcatheter was advanced over the microwire further into the middle colic artery and used to selec t the distal middle colic artery. Selective digital subtract ion arteriography was performed (with interpretation). No embolization was performed, given the fact that no active contrast extravasation or pseudoaneurysm was note d. The catheters were removed. A right external iliac arteriogram was per formed through the sheath, demonstrating the arteriotomy to lie within the right common femoral artery above the bifurcation, deemed suitable f or closure device placement. A StarClose closure device was deployed to accomplish tanner ccessful closure of the arteriotomy, with hemostasis achieved. A sterile d ressing was applied. The patient tolerated the procedure well without immediate complication. COMPLICATIONS: None immediate. ESTIMATED BLOOD LOSS: Less than 30 cc. CONDITION: Stable. DISCHARGE TO: Patient care division. FINDINGS: * Moderate tandem atherosclerotic calcifications and plaquing within the right common femoral artery and its bran ches with classic branch vessel anatomy. 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 * Widely patent superior mesenteric ar ed stent with classic branch vessel anatomy and prominent backflow/reconstitution o f the common hepatic artery/proper hepatic artery via pancrea ticoduodenal arcade/GDA anastomosis. No active contrast extravasation or pseud oaneurysm was noted. * Widely patent distal jejunal arterial branches of superior mesenteric artery with classic branch vessel anatom y and without active contrast extravasation. * Widely patent proximal jejunal arterial branches o f superior mesenteric artery with classic branch vessel anatom y and without active contrast extravasation. * Widely patent and unremarkable middle colic artery with classic branch vessel anatomy including the marginal co lonic artery (marginal artery of Debby) supplying the mid transverse colon to distal descending colon. No active contrast extravasation was noted. The left coli c artery is supplied from the SMA and is widely patent. * Right external iliac arteriogram through the right common femoral artery sheath demonstrates multifocal moderate tandem stenoses of the right external iliac artery and right common femoral artery and severe stenosis of the origin of the right superficial femoral artery. Moderate multifocal tandem stenoses of the proximal right superficial femo ral artery were also noted with slow flow. * Successful deployment of StarClose c losure device assisted with less than 5 minutes of manual pressure with successful hemo stasis of the access site. Procedure Note Ut, Radiant Results Inft User - 2019 2:46 PM CDT EXAMINATION: VISCERAL ANGIOGRAPHY / IR ANGIOGRAM VISCERAL HISTORY/INDICATION: 74 years year-old pa tient with lower GI bleed at the splenic flexure on CTA , now stable over night. ATTENDING : Dr. Coleman Muse. RESIDENT: Lowell Brock MD; Eva briceno MD; Bill Johnson DO. PROCEDURES: 1. Ultrasound-guided access of the [facility] t common femoral artery. Images were obtained and saved to PACS for inte rpretation. 2. Selective Celiac artery catheterizat ion with diagnostic angiogram (first order, with interpretation). 3. Selective Superior mesenteric artery catheterization with diagnostic angiogram (first order, with interpretat ion). 4. Selective Distal jejunal arterial br anch of superior mesenteric artery catheterization with diagnostic angiogra m (third order, with interpretation). 5. Selective Proximal jejunal arterial branch of superior mesenteric artery catheterization with diagnostic a ngiogram (third order, with interpretation). 6. Selective middle colic artery cathet erization with diagnostic angiogram (third order, with interpretation). 7. Selective distal middle colic artery catheterization with diagnostic angiogram (additional third, with interp retation). 8. Right external iliac arteriogram (wi th interpretation). 9. Removal of right common femoral zechariah ry access sheath with deployment of StarClose closure device. SEDATION: Moderate sedation was administ ered under the attending physician's direction and continuous mon itoring by a trained nurse specialist who was independent from thos e actually performing the procedure. Please refer to the nursing n otes for total sedation time in [facility]. TECHNIQUE: The risks, benefits and alter natives were discussed and informed consent was obtained. Prior to beginning the procedure, [place] Protocol was performed to confirm the patient's i dentity and the planned procedure. The fluoroscopy time has been recorded i n the electronic medical record. Maximum sterile barriers including cap, mask, hand hygiene, sterile gloves, sterile gown, large sterile drape and 2% chlorhexidine for cutaneous antisepsis were used. After sterile prep, the skin over the [facility] common femoral artery was infiltrated with 1% Lidocaine and the ve ssel was accessed using Seldinger technique. A 6 Armenian sheath was placed and connected to a heparinized saline drip. Using fluoroscopic guidance, the celiac artery was selected using a 5 Armenian catheter and selective digital tanner btraction arteriography was performed (with interpretation). Then, u sing the 5 Armenian catheter, the superior mesenteric artery was selected and selective digital subtraction arteriography was performed (with interp retation). Then, using a Progreat microcatheter and Fathom microwire, the proximal jejunal arterial branch of the superior mesenteric artery was selec akbar and selective digital subtraction arteriography was performed (with interpretation). Then, using the microcatheter and microwire, the dis ashkan jejunal arterial branch of the superior mesenteric artery was selected and selective digital subtraction arteriography was performed (with interp retation). Then, using the microcatheter and microwire, the middle colic artery was selected and selective digital subtraction arteriogra phy was performed (with interpretation). Then, the microcatheter was advanced over the microwire further into the middle colic artery and used to select the distal middle colic artery. Selective digital subtract ion arteriography was performed (with interpretation). No embolization was performed, given the fact that no active contrast extravasation or pseudoaneurysm was note d. The catheters were removed. A right external iliac arteriogram was per formed through the sheath, demonstrating the arteriotomy to lie wit hin the right common femoral artery above the bifurcation, deemed suitable f or closure device placement. A StarClose closure device was deployed to accomplish successful closure of the arteriotomy, with hemostasis achieve d. A sterile dressing was applied. The patient tolerated the procedure well without immediate complication. COMPLICATIONS: None immediate. ESTIMATED BLOOD LOSS: Less than 30 cc. CONDITION: Stable. DISCHARGE TO: Patient care division. FINDINGS: * Moderate tandem atherosclerotic calci fications and plaquing within the right common femoral artery and its bran ches with classic branch vessel anatomy. 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 * Widely patent superior mesenteric art marty stent with classic branch vessel anatomy and prominent backflow/re constitution of the common hepatic artery/proper hepatic artery via pancrea ticoduodenal arcade/GDA anastomosis. No active contrast extravas ation or pseudoaneurysm was noted. * Widely patent distal jejunal arterial branches of superior mesenteric artery with classic branch vessel anatom y and without active contrast extravasation. * Widely patent proximal jejunal arteri al branches of superior mesenteric artery with classic branch vessel anatom y and without active contrast extravasation. * Widely patent and unremarkable middle colic artery with classic branch vessel anatomy including the marginal co lonic artery (marginal artery of Debby) supplying the mid transverse c olon to distal descending colon. No active contrast extravasation was noted. The left colic artery is supplied from the SMA and is widely patent. * Right external iliac arteriogram thro ugh the right common femoral artery sheath demonstrates multifocal moderate tandem stenoses of the right external iliac artery and right common f emoral artery and severe stenosis of the origin of the right superficial f emoral artery. Moderate multifocal tandem stenoses of the proximal right tanner perficial femoral artery were also noted with slow flow. * Successful deployment of StarClose cl osure device assisted with less than 5 minutes of manual pressure with s uccessful hemostasis of the access site. IMPRESSION * No active contrast extravasation or p seudoaneurysm identified. 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 * Widely patent and unremarkable classi c branch vessel anatomy of the superior mesenteric artery with widely p atent superior mesenteric artery stent and without active contrast extrav asation or pseudoaneurysm. * Widely patent superior mesenteric art marty branches, including the middle colic artery, without evidence of active extravasation or pseudoaneurysm. * Widely patent left colic artery and m arginal artery of Debby. * The FELICITY is no longer present due to t he patient's prior aortobiiliac stent. The entire colon is supplied by t he SMA. * There is generally slow antegrade art erial flow in the SMA and its branches so any further/repeat bleeding is likely to stop on its own and repeat angiography is therefore unlikely to be helpful and not indicated in case of a rebleed. * Changes of severe peripheral vascular disease including multifocal tandem moderate stenoses of the right ex ternal iliac artery and right common femoral artery and severe stenosi s of the origin of the right superficial femoral artery. Consider a s eparate interventional radiology consultation for further evaluation and possible intervention if there is clinically symptomatic peripheral vascul ar disease. According to Executive Order [place] 09 and e mergency rule 22 [place] Administrative Code (TAC) ?187.57(c), th is procedure was deemed medically necessary to address a medical condition (lower GI bleed at the splenic flexure) which places this patient at [facility] for serious adverse medical consequences or . Preliminary Report Dictated by Resident: Lowell Brock. As the attending radiologist, Dr. Marian King, actively participated and was present in the room during the entire procedure. IColeman MD., have rev iewed this study and agree with the above report. Performing Organization Address City/State/Zipcode Phone Number PACS/VR/DOSE Hepatitis B Surface Antigen (HBsAg) (12/23/2019 7:34 AM CDT) Pathologist Sig nature HBsAg Negative Negative [facility] HBsAg 0.05 [facility] Semi-Quantitative SERVICES Specimen Blood - VENOUS Performing Organization Address City/State/Zipcode Phone Number [facility] CLIA: [id number] [place], [place] [id number] [address] [place] [address] BASIC METABOLIC PANEL (NA, K, CL, CO2, GLUCOSE, BUN, CREATININE, CA) (12/23/2019 7:34 AM CDT) NA 132 (L) 135 - 145 [facility] mmol/L SERVICES K 5.2 (H) 3.5 - 5.0 [facility] mmol/L SERVICES CL 91 (L) 98 - 108 mmol/L [facility] CO2 TOTAL 32 (H) 23 - 31 mmol/L [facility] AGAP 9 2 - 16 [facility] BUN 47 (H) 7 - 23 mg/dL [facility] GLUCOSE 54 (L) 70 - 110 mg/dL [facility] CREATININE 8.47 (H) 0.60 - 1.25 [facility] mg/dL SERVICES CALCIUM 8.1 (L) 8.6 - 10.6 [facility] mg/dL SERVICES eGFR Calculation 6.2 mL/min/1.73m2 [facility] (Non- SERVICES Russian) eGFR Calculation 7.5 mL/min/1.73m2 [facility] () SERVICES Specimen Blood - VENOUS Narrative Performed At Association of Glomerular Filtration Rate (GFR) and St aging [facility] of Kidney Disease* + + +------- ------ + | GFR (mL/min/1.73 m2) | With Kidney Damage | Wi thout Kidney Damage + + +------- ------ + | >90 | Stage one | Normal + + +------- ------ + | 60-89 | Stage two | Decreased GFR + + +------- ------ + | 30-59 | Stage three | Stage three + + +------- ------ + | 15-29 | Stage four | Stage four + + +------- ------ + | <15 (or dialysis) | Stage five | Stage five + + +------- ------ + *Each stage assumes the associated GFR level has been in effect for at least three months. Stages 1 to 5, wit h or without kidney disease, indicate chronic kidney disease. Notes: Determination of stages one and two (with eGFR >59mL/min/1.73 m2) requires estimation of kidney damag e for at least three months as defined by structural or func tional abnormalities of the kidney, manifested by either: Pathological abnormalities or Markers of kidney damage (including abnormalities in the composition of the blo od or urine or abnormalities in imaging tests) . Performing Organization Address City/[facility]/Zipcode Phone Number [facility] CLIA: [id number] [place] [address] [place] [address] CBC WITHOUT DIFF (12/23/2019 4:33 AM CDT) Pathologist Sig nature WBC 10.20 4.20 - 10.70 [facility] 10*3/L SERVICES RBC 2.87 (L) 4.26 - 5.52 [facility] 10*6/L SERVICES HGB 8.2 (L) 12.2 - 16.4 g/dL [facility] HCT 24.9 (L) 38.4 - 49.3 % [facility] MCH 28.6 26.1 - 32.7 pg [facility] MCV 86.8 81.7 - 95.6 fL [facility] MCHC 32.9 31.2 - 35.0 g/dL [facility] PLT 129 (L) 150 - 328 10*3/L [facility] MPV 11.1 9.8 - 13.0 fL [facility] RDW-CV 22.2 (H) 12.1 - 15.4 % [facility] RDW-SD 69.4 (H) 38.5 - 51.6 fL [facility] NRBC x10^3 <0.01 10*3/L [facility] NRBC/100 WBC 0.0 0.0 - 10.0 /100 [facility] WBCs SERVICES IPF % [facility] Specimen Blood - VENOUS Performing Organization Address City/[facility]/Zipcode Phone Number [facility] CLIA: [id number] [place] [address] [place] [address] Prepare Packed RBC (in units), 1 Units (12/22/2019 11:25 PM CDT) Cross Match Result Compatible LAB ISBT Blood Type Code 5100 LAB Unit Blood Type O Pos LAB Unit Number [id number] LAB Blood Expiration Date & [id number] LAB Time Status Information Issued LAB Product Identification Red Blood Cells LAB Product Code [id number] LAB Comment: Performed at [facility] Laboratory Services - [facility] Blood [place] [address] Toll Free: [phone] CLIA No. [id number] Specimen Performing Organization Address City/[facility]/Zipcode Phone Number [facility] LAB CBC WITHOUT DIFF (12/22/2019 10:25 PM CDT) Pathologist Sig nature WBC 10.21 4.20 - 10.70 [facility] 10*3/L SERVICES RBC 2.36 (L) 4.26 - 5.52 [facility] 10*6/L SERVICES HGB 6.9 (L) 12.2 - 16.4 g/dL [facility] HCT 21.3 (L) 38.4 - 49.3 % [facility] MCH 29.2 26.1 - 32.7 pg [facility] MCV 90.3 81.7 - 95.6 fL [facility] MCHC 32.4 31.2 - 35.0 g/dL [facility] PLT 130 (L) 150 - 328 10*3/L [facility] MPV 11.4 9.8 - 13.0 fL [facility] RDW-CV 20.3 (H) 12.1 - 15.4 % [facility] RDW-SD 66.9 (H) 38.5 - 51.6 fL [facility] NRBC x10^3 <0.01 10*3/L [facility] NRBC/100 WBC 0.0 0.0 - 10.0 /100 [facility] WBCs SERVICES IPF % [facility] Specimen Blood - VENOUS Performing Organization Address City/State/Zipcode Phone Number [facility] CLIA: [id number] [place] [address] [place] [address] Type and Screen - ONCE STAT (12/22/2019 4:35 PM CDT) Pathologist Sig nature ABO & RH O POSITIVE LAB Comment: Performed at [facility] Laboratory Services - [facility] Blood [place] [address] Toll Free: [phone] CLIA No. [id number] IAT Negative LAB Comment: Performed at [facility] Laboratory Services - [facility] Blood Bank [address] [place] [address], [place], [place] [address] Toll Free: [phone] CLIA No. [id number] Specimen VENOUS Performing Organization Address City/[facility]/Zipcode Phone Number [facility] LAB CBC WITHOUT DIFF (12/22/2019 4:25 PM CDT) Pathologist Sig nature WBC 13.45 (H) 4.20 - 10.70 [facility] 10*3/L SERVICES RBC 2.71 (L) 4.26 - 5.52 [facility] 10*6/L SERVICES HGB 8.0 (L) 12.2 - 16.4 g/dL [facility] HCT 25.1 (L) 38.4 - 49.3 % [facility] MCH 29.5 26.1 - 32.7 pg [facility] MCV 92.6 81.7 - 95.6 fL [facility] MCHC 31.9 31.2 - 35.0 g/dL [facility] PLT 137 (L) 150 - 328 10*3/L [facility] MPV 10.9 9.8 - 13.0 fL [facility] RDW-CV 19.9 (H) 12.1 - 15.4 % [facility] RDW-SD 66.8 (H) 38.5 - 51.6 fL [facility] NRBC x10^3 <0.01 10*3/L [facility] NRBC/100 WBC 0.0 0.0 - 10.0 /100 [facility] WBCs SERVICES IPF % [facility] Specimen Blood - VENOUS Performing Organization Address City/State/Zipcode Phone Number [facility] CLIA: [id number] [place] [address] [place] [address] MRSA / MSSA Screen by PCR, Nares (12/22/2019 4:20 PM CDT) Pathologist Sig nature MRSA Screen by PCR, Negative Negative [facility] Nares SERVICES MSSA Screen by PCR, Positive (A) Negative [facility] Nares SERVICES MRSA/MSSA Positive? Yes (A) No [facility] Specimen Swab - NARES, BOTH SIDES Narrative Performed At A positive test result does not necessarily indicate t he [facility] presence of viable organism. Performing Organization Address City/State/Zipcode Phone Number [facility] CLIA: [id number] [place] [address] [place] [address] Prepare Packed RBC (in units), 1 Units (12/22/2019 1:35 PM CDT) Pathologist Khadijah Cross Match Result Compatible LAB ISBT Blood Type Code 5100 LAB Unit Blood Type O Pos LAB Unit Number [id number] LAB Blood Expiration Date & [id number] LAB Time Status Information Issued LAB Product Identification Red Blood Cells LAB Product Code [id number] LAB Comment: Performed at [facility] Laboratory [facility] Blood Bank [address] [place] [id number] Toll Free: [phone] CLIA No. [id number] Specimen Performing Organization Address City/State/Zipcode Phone Number [facility] ABORH CONFIRMATION (12/22/2019 12:21 PM CDT) Pathologist [facility] nature ABO & RH O Positive LAB Comment: Performed at [facility] Blood Bank [address] [place] [id number] Toll Free: [phone] CLIA No. [id number] Specimen Performing Organization Address City/[facility] Phone Number [facility] COVID-19 (ID NOW RAPID TESTING) (12/22/2019 12:18 PM CDT) Jakob Lucio SARS-CoV-2 Rapid ID Not Detected Not Detected [facility] Specimen Swab - NASOPHARYNGEAL SWAB Narrative Performed At NE NOW COVID-19 Assay is an isothermal nucleic [facility] acid amplification test intended for the qualitative detection of nucleic acid from SARS-CoV-2 viral RNA in nasopharyngeal ([employer]) specimens. It is used under Emergency Use Authorization (EUA) by FDA. The limit of detection (LOD) of the assay is 125 Genome Equivalents/mL. A positive result is indicative of the presence of SARS-CoV-2 RNA. Clinical correlation with patient history and other diagnostic information is necessary to determine patient infection status. A negative (Not Detected) result does not preclude SARS-CoV-2 infection. In patients with clinical symptoms and other tests that are consistent with SARS-CoV-2 infection, negative results should be treated as presumptive negative and a new specimen should be tested with alternative PCR molecular test. Invalid: Please collect a new specimen for repeat patient testing if clinically indicated. Performing Organization Address City/State/Zipcode Phone Number [facility] CLIA: [id number] [place] [address] ABDOMEN PELVIS W WO CONTRAST (12/22/2019 12:04 PM CDT) Specimen Narrative Performed At CT Abdomen and Pelvis without and with i ntravenous contrast. PACS/VR/DOSE CLINICAL HISTORY: GI bleeding. DOSE: Up-to-date CT equipment and radiation dose reduc tion techniques were employed. CTDIvol: 6.35+6.41+6.41+6.45 mGy. DLP: 3 64+323+323+325 mGy-cm. TECHNIQUE : Contiguous axial imaging fro m the level of the lung bases through the pubic symphysis were performed initially w ithout contrast and subsequently after the uncomplicated administration of Omnipaque contrast material. 2 additional delayed venous phase studies we re also obtained (GI bleed protocol). Coronal and sagittal reconstructions were obtained. Auto mA and/or iterative reconstruction were used to reduce radiation dose. FINDINGS: Lower lungs: Small bilateral pleural effusion, atelect asis of portions of left lower lung, calcification in the ri ght posterior pleural lining and small calcified granulomas in both lower lungs. Cardiomegaly. No pericardial effusion. Liver, Gallbladder and Spleen: Periportal edema noted. There is very poor enhancement of the portions of caudate lobe and adjace nt central portion of the liver which could be secondary to thrombosed infer ior vena cava. Portal vein is patent. Loculated fluid collection is seen along the dorsomedi al subcapsular liver which could be secondary to remote traum a. Peritoneum: Small amount of free fluid is seen surroun ding bowel loops in the lower abdomen. No lymphadenopathy. Pancreas and Adrenals: Unremarkable pancreas and rig ht adrenal gland. Left adrenal gland showed hypertrophy. Kidneys and Ureters: Right kidney is abs ent. Left kidney showed severe atrophy.. Vessels: Extensive atherosclerosis is no akbar with aortobifemoral bypass, metallic stent probably in the right myrna al artery. Inferior vena cava is completely thrombo sed. Retroperitoneum: No abnormal fluid or ly mphadenopathy. Bowel: Active bleeding site is visualized in the splen ic flexure region of large bowel with active extravasation of contrast medium noted in the arterial as well as delayed venous phase s. There is congestion in the surrounding fat. A small amount of air s uspected accumulated in the extraluminal space at within the congest ed fat without valentina perforation/free intraperitoneal air. Intense venous blush noted in the upper rectum which could be within the internal hemorrhoids. There is evidence of prior bowel surgery with resection of portions of small bowel. Pigtail catheter noted in the gastric lum en extending into the retrogastric space, from uncertain prior intervention. Bladder and Reproductive Organs: Diffuse bladder wall thickening noted which could be secondary to chronic cyst itis. Prostate gland is slightly enlarged. Bones: Soft tissues: 15 mm mass like density in the right ant erior abdominal wall subcutaneous tissue at the level of umbi licus could be scar tissue or a chronic sebaceous cyst. CONCLUSION: 1. Active GI bleeding site confirmed in the splenic fl exure region. Active extravasation of contrast medium is seen during arteri al as well as venous phases. There is congestion of the surrounding fat. Fi ndings are consistent with ischemic colitis with questionable focal extralum inal air accumulation in the congested fat surrounding the spl enic flexure. No free intraperitoneal air detected.. Small eli unt of free fluid noted in the lower abdomen and surrounding the liver. 2. Evidence of previous abdominal surgeries including bowel resection and aortobifemoral bypass. 3. S/P right nephrectomy. Severe atrophy of left kidney with numerous cystic lesions. 4. Thrombosed inferior vena cava. S/P ch olecystectomy. 5. Small bilateral pleural effusion and atelectatic changes in the left lower lung. 6. Pigtail catheter is seen in the gastric lumen lumen extending into the retrogastric region. Note: Findings of active GI bleeding were discussed wi Dr. Quintana in the emergency room at 12:15 PM. Procedure Note [facility], Radiant Results Inft User - 2019 12:[address] Abdomen and Pelvis without and with intravenous contrast. CLINICAL HISTORY: GI bleeding. DOSE: Up-to-date CT equipment and radiat ion dose reduction techniques were employed. CTDIvol: 6.35+6.41+6.41+6.45 mGy. DLP: 3 64+323+323+325 mGy-cm. TECHNIQUE : Contiguous axial imaging fro m the level of the lung bases through the pubic symphysis were perform ed initially without contrast and subsequently after the uncomplicated adm inistration of Omnipaque contrast material. 2 additional delayed venous ph ase studies were also obtained (GI bleed protocol). Coronal and sagittal re constructions were obtained. Auto mA and/or iterative reconstruction were used to reduce radiation dose. FINDINGS: Lower lungs: Small bilateral pleural eff usion, atelectasis of portions of left lower lung, calcification in the ri ght posterior pleural lining and small calcified granulomas in both lower lungs. Cardiomegaly. No pericardial effusion. Liver, Gallbladder and Spleen: Periporta l edema noted. There is very poor enhancement of the portions of caudate l obe and adjacent central portion of the liver which could be secondary to th rombosed inferior vena cava. Portal vein is patent. Loculated fluid collection is seen along the dorsomedial subcapsular liver which could be secondary to remote traum a. Peritoneum: Small amount of free fluid i s seen surrounding bowel loops in the lower abdomen. No lymphadenopathy. Pancreas and Adrenals: Unremarkable briscoe creas and right adrenal gland. Left adrenal gland showed hypertrophy. Kidneys and Ureters: Right kidney is abs ent. Left kidney showed severe atrophy.. Vessels: Extensive atherosclerosis is no akbar with aortobifemoral bypass, metallic stent probably in the right ymrna al artery. Inferior vena cava is completely thrombo sed. Retroperitoneum: No abnormal fluid or ly mphadenopathy. Bowel: Active bleeding site is visualize d in the splenic flexure region of large bowel with active extravasation of contrast medium noted in the arterial as well as delayed venous phase s. There is congestion in the surrounding fat. A small amount of air s uspected accumulated in the extraluminal space at within the congest ed fat without valentina perforation/free intraperitoneal air. Intense venous blush noted in the upper rectum which could be within the internal hemorrhoids. There is evidence of prior bowel surgery with resection of portions of small bowel. Pigtail catheter noted in t he gastric lumen extending into the retrogastric space, from uncertain prior intervention. Bladder and Reproductive Organs: Diffuse bladder wall thickening noted which could be secondary to chronic cyst itis. Prostate gland is slightly enlarged. Bones: Soft tissues: 15 mm mass like density in the right anterior abdominal wall subcutaneous tissue at the level of umbi licus could be scar tissue or a chronic sebaceous cyst. CONCLUSION: 1. Active GI bleeding site confirmed in the splenic flexure region. Active extravasation of contrast medium is seen during arterial as well as venous phases. There is congestion of the surro unding fat. Findings are consistent with ischemic colitis with questionable focal extraluminal air accumulation in the congested fat surrounding the spl enic flexure. No free intraperitoneal air detected.. Small eli unt of free fluid noted in the lower abdomen and surrounding the liver. 2. Evidence of previous abdominal surger ies including bowel resection and aortobifemoral bypass. 3. S/P right nephrectomy. Severe atrophy of left kidney with numerous cystic lesions. 4. Thrombosed inferior vena cava. S/P ch olecystectomy. 5. Small bilateral pleural effusion and atelectatic changes in the left lower lung. 6. Pigtail catheter is seen in the gastr ic lumen lumen extending into the retrogastric region. Note: Findings of active GI bleeding wer e discussed with Dr. Quintana in the emergency room at 12:15 PM. Performing Organization Address City/[facility]/Zipcode Phone Number PACS/VR/DOSE Type and Screen - ONCE Routine (12/22/2019 11:22 AM CDT) Pathologist Sig nature ABO & RH O Positive LAB Comment: Performed at [facility] Laboratory Services - [facility] Blood Bank [address] [place] [phone] Toll Free: [phone] CLIA No. [id number] IAT Negative LAB Comment: Performed at [facility] Laboratory Services - [facility] Blood Bank [address] [place] [phone] Toll Free: [phone] CLIA No. [id number] Specimen Blood Performing Organization Address City/[facility]/Zipcode Phone Number BLD LAB PROTHROMBIN TIME / INR (12/22/2019 11:11 AM CDT) PROTIME PATIENT 15.6 (H) 12.0 - 14.7 [facility] LABORATORY INR 1.3Comment: Normal [facility] INR <1.1; Warfarin [facility] Therapeutic range LABORATORY 2.0 to 3.0 or 2.5 to 3.5, depending upon the indications. Specimen Blood - VENOUS Performing Organization Address City/[facility]/Zipcode Phone Number [facility] CLIA: [id number] [place] [address] aPTT (12/22/2019 11:11 AM CDT) Pathologist Sig nature APTT Patient 37 23 - 38 Seconds [facility] Specimen Blood - VENOUS Narrative Performed At The [facility] patient population mean normal value [facility] for aPTT is 30 seconds. Performing Organization Address City/[facility] Phone Number [facility] CLIA: [id number] [place] [address] LIPASE (12/22/2019 11:10 AM CDT) Pathologist Sig nature LIPASE <10 0 - 220 U/L [facility] Specimen Blood - VENOUS Performing Organization Address [facility] Center[facility] Phone Number [facility] CLIA: [id number] [place] [address] COMP. METABOLIC PANEL (17106) (12/22/2019 11:10 AM CDT) NA 132 (L) 135 - 145 [facility] mmol/L [facility] K 4.3 3.5 - 5.0 [facility] mmol/L [facility] LAB[facility] CL 88 (L) 98 - 108 mmol/L [facility] CO2 TOTAL 35 (H) 23 - 31 mmol/L [facility] AGAP 9 2 - 16 [facility] BUN 34 (H) 7 - 23 mg/dL [facility] GLUCOSE 99 70 - 110 mg/dL [facility] CREATININE 8.09 (H) 0.60 - 1.25 [facility] mg/dL [facility] LAB[facility] TOTAL BILI 0.7 0.1 - 1.1 mg/dL [facility] CALCIUM 9.4 8.6 - 10.6 [facility] mg/dL [facility] LAB[facility] T PROTEIN 5.6 (L) 6.3 - 8.2 g/dL [facility] ALBUMIN 3.0 (L) 3.5 - 5.0 g/dL [facility] ALK PHOS 101 34 - 122 U/L [facility] ALTv 6 5 - 50 U/L [facility] AST(SGOT) 14 13 - 40 U/L [facility] eGFR Calculation 6.5 mL/min/1.73m2 [facility] ([facility] [place]) eGFR Calculation 7.9 mL/min/1.73m2 [facility] () [facility] Specimen Blood - VENOUS Narrative Performed At Association of Glomerular Filtration Rate (GFR) [facility] LAB[facility] and Staging of Kidney Disease* + + +- + | GFR (mL/min/1.73 m2) | With Kidney Damage | Without Kidney Damage + + +- + | >90 | Stage one | Normal + + +- + | 60-89 | Stage two | Decreased GFR + + +- + | 30-59 | Stage three | Stage three + + +- + | 15-29 | Stage four | Stage four + + +- + | <15 (or dialysis) | Stage five | Stage five + + +- + *Each stage assumes the associated GFR level has been in effect for at least three months. Stages 1 to 5, with or without kidney disease, indicate chronic kidney disease. Notes: Determination of stages one and two (with eGFR >59mL/min/1.73 m2) requires estimation of kidney damage for at least three months as defined by structural or functional abnormalities of the kidney, manifested by either: Pathological abnormalities or Markers of kidney damage (including abnormalities in the composition of the blood or urine or abnormalities in imaging tests). Performing Organization Address City/State/Zipcode Phone Number [facility] CLIA: [id number] [place] [address] CBC WITH DIFF (12/22/2019 11:10 AM CDT) Pathologist [facility] nature WBC 13.26 (H) 4.20 - 10.70 [facility] 10*3/L [facility] RBC 2.46 (L) 4.26 - 5.52 [facility] 10*6/L [facility] HGB 7.6 (L) 12.2 - 16.4 [facility] g/dL [facility] HCT 23.2 (L) 38.4 - 49.3 % [facility] MCV 94.3 81.7 - 95.6 fL [facility] MCH 30.9 26.1 - 32.7 pg [facility] MCHC 32.8 31.2 - 35.0 [facility] g/dL [facility] RDW-SD 55.8 (H) 38.5 - 51.6 fL [facility] RDW-CV 16.2 (H) 12.1 - 15.4 % [facility] PLT 150 150 - 328 [facility] 10*3/L [facility] MPV 11.0 9.8 - 13.0 fL [facility] NRBC/100 WBC 0.0 0.0 - 10.0 /100 [facility] WBCs [facility] NRBC x10^3 <0.01 10*3/L [facility] GRAN MAT (NEUT) % 84.9 % [facility] IMM GRAN % 1.00 % [facility] LYMPH % 7.2 % [facility] MONO % 6.3 % [facility] EOS % 0.1 % [facility] BASO % 0.5 % [facility] GRAN MAT x10^3(ANC) 11.27 (H) 1.99 - 6.95 [facility] 10*3/uL [facility] IMM GRAN x10^3 0.13 (H) 0.00 - 0.06 [facility] 10*3/uL [facility] LYMPH x10^3 0.96 (L) 1.09 - 3.23 [facility] 10*3/uL [facility] MONO x10^3 0.83 0.36 - 1.02 [facility] 10*3/uL [facility] EOS x10^3 <0.03 (L) 0.06 - 0.53 [facility] 103/uL [facility] BASO x10^3 0.06 0.01 - 0.[address]/uL [facility] Specimen Blood - VENOUS Performing Organization Address City/State/Zipcode Phone Number [facility] CLIA: [id number] [place], [place] [id number] LABORATORY [address] documented in this encounter Visit Diagnoses Diagnosis Gastrointestinal hemorrhage, unspecified gastrointestinal hemorrhage type - Primary Acute blood loss anemia Acute posthemorrhagic anemia Lower GI bleed Hemorrhage of gastrointestinal tract, un specified Murmur Undiagnosed cardiac murmurs Ischemic colitis Unspecified vascular insufficiency of in testine PVD (peripheral vascular disease) Peripheral vascular disease, unspecified documented in this encounter Administered Medications Medication Order MAR Action Action Date Dose Rate Site acetaminophen-codeine (TYLENOL Given 12/25/2019 12:05 PM CDT 2 t ablets #3) 300-30 mg tablet 2 tablet 2 tablet, Oral, Q4HPRN, Starting Sat12/23/19 at 1203, Until Discontinued, Routine, Pain (scale 4-6) Given 12/24/2019 1:07 PM CDT 2 tablets Given 12/24/2019 3:54 AM CDT 2 tablets ALPRAZolam (XANAX) tablet 0.5 mg Given 12/25/2019 8:58 PM CDT 0.5 mg 0.5 mg, Oral, QHS, First dose (after last modification) on Sat12/25/19 at 2100, Until Discontinued, Routine calcium carbonate (OSCAL-500) tablet 500 mg Given 12/25/2019 12:00 PM CDT 500 mg 500 mg, Oral, TID MEALS, First dose on Sat12/25/19 at 1200, Until Discontinued, Routine ciprofloxacin HCl (CIPRO) tablet 500 mg 500 mg, Oral, Q24H, First dose (after la st modification) on 12/26/19 at 1000, Until Discontinued, NAVYA, Reason for Ant i-Infective: Empiric Therapy for Suspected Infection, Empiric Therapy Site: Abdominal, Duration o f therapy: 7 days dextrose 50 % in water (D50W) injection 25 mL Given 12/23/2019 10:26 PM CDT 25 mL 25 mL, Slow IV Push, PRN, Starting Tu12/22/19 at 1601, Until Discontinued, NAVYA, Blood Glucose < or = 70 mg/dL and patient is unable to swallow or has mental status changes. Given 12/23/2019 11:28 AM CDT 25 mL heparin (PF) 1,000 unit/mL injection Given 12/26/2019 11:33 AM C DT 4,000 Units 2,000 Units 2,000 Units, Slow IV Push, SEE-INSTRUCTIONS, 2 doses, Starting 12/26/19 at 0658, Until Discontinued, Routine loperamide (IMODIUM A-D) capsule 2 mg Given 12/26/2019 4:40 AM CDT 2 mg 2 mg, Oral, Q4HPRN, Starting Sat12/25/19 at 1102, Until Discontinued, Routine, Diarrhea Given 12/25/2019 8:58 PM CDT 2 mg melatonin (MELATIN) tablet 3 mg Given 12/25/2019 8:59 PM CDT 3 mg 3 mg, Oral, QHS, First dose on Sat12/22/19 at 2100, Until Discontinued, Routine Given 12/24/2019 8:52 PM CDT 3 mg metoprolol succinate XL (TOPROL XL) tablet Given 12/25/2019 8:58 PM CDT 150 mg 150 mg 150 mg, Oral, BID, First dose on Sat12/25/19 at 2000, Until Discontinued, Routine metroNIDAZOLE (FLAGYL) tablet 500 mg Given 12/26/2019 4:40 AM CDT 500 mg 500 mg, Oral, Q8H, First dose on Sat12/25/19 at 1400, Until Discontinued, Routine, Reason for Anti-Infective: Empiric Therapy for Suspected Infection, Empiric Therapy Site: Abdominal, Duration of therapy: 7 days Given 12/25/2019 9:07 PM CDT 500 mg Given 12/25/2019 4:14 PM CDT 500 mg nicotine (NICODERM) 21 mg/24 hr patch 1 Applied 12/25/2019 8: 58 PM CDT 1 Patch Patch 1 Patch, Topical, Administer over 24 Hours, Q24H, First dose on Sat12/22/19 at 2230, Until Discontinued, Routine Given 12/24/2019 8:52 PM CDT 1 Patch Given 12/23/2019 9:13 PM CDT 1 Patch pantoprazole (PROTONIX) EC tablet 40 mg 40 mg, Oral, DAILY, First dose (after la st modification) on Sat12/26/19 at 0900, Until Discontinued, Routine simethicone (GAS RELIEF (SIMETHICONE)) Given 12/25/2019 8:58 PM CDT 160 mg chewable tablet 160 mg 160 mg, Oral, TID MEALS, First dose (after last modification) on Sat12/25/19 at 1200, Until Discontinued, Routine Given 12/25/2019 12:05 PM CDT 160 mg Medication Order MAR Action Action Date Dose Rate Site acetaminophen-codeine (TYLENOL Given 12/22/2019 6:04 PM CDT 1 t ablet #3) 300-30 mg tablet 1 tablet 1 tablet, Oral, Q4HPRN, Starting Sat12/22/19 at 1736, Until Sat12/22/19 at 1816, Routine, Pain (scale 4-6) ALPRAZolam (XANAX) tablet 0.25 mg Given 12/24/2019 8:52 PM CDT 0.25 mg 0.25 mg, Oral, BIDPRN, Starting Sat12/24/19 at 1445, Until Sat12/25/19 at 1102, Routine, Anxiety ALPRAZolam (XANAX) tablet 0.5 mg Given 12/22/2019 10:13 PM CDT 0.5 mg 0.5 mg, Oral, QHS, First dose (after last modification) on Sat12/22/19 at 2145, Until Discontinued, Routine ALPRAZolam (XANAX) tablet 0.5 mg Given 12/23/2019 9:10 PM CDT 0.5 mg 0.5 mg, Oral, BID, First dose on Sat12/23/19 at 0800, Until Discontinued, Routine Given 12/23/2019 7:16 AM CDT 0.5 mg ciprofloxacin in 5 % dextrose (CIPRO) Given 12/25/2019 6:03 AM CDT 200 mg piggyback 200 mg 200 mg, IV Piggyback, Administer over 60 Minutes, Q12H ABX, First dose (after last modification) on Sat12/25/19 at 0645, Until Discontinued, NAVYA, Reason for Anti-Infective: Empiric Therapy for Suspected Infection, Empiric Therapy Site: Abdominal, Duration of therapy: 7 days D5W IV infusion 1,000 mL New Bag 12/23/2019 10:34 PM CDT 1,000 mL 20 mL/hr at 20 mL/hr, IV Infusion, CONTINUOUS, Starting Sat12/23/19 at 2330, Until Sat12/24/19 at 2015, Routine D5W IV infusion 500 mL New Bag 12/23/2019 11:53 PM CDT 500 mL 999 mL/hr at 999 mL/hr, IV Infusion, ONCE, 1 dose, Sat12/24/19 at 0030, Routine D5W IV infusion 500 mL New Bag 12/24/2019 3:54 AM CDT 500 mL 999 mL/hr at 999 mL/hr, IV Infusion, ONCE, 1 dose, Sat12/24/19 at 0430, Routine diphenhydrAMINE (BENADRYL) injection Given 12/23/2019 9:40 AM CDT 25 mg Slow IV Push, PRN, Starting Sat12/23/19 at 0832, Until Sat12/23/19 at 0940, Routine Given 12/23/2019 8:32 AM CDT 50 mg epoetin wendi-epbx (RETACRIT) injection Given 0 7:25 PM CDT 8,000 Units 8,000 Units 8,000 Units, Slow IV Push, DIALYSIS ONCE - [facility], 1 dose, 12/23/19 at 1715, Routine, human geography faculty member approving Restricted medication: TOM SEO epoetin wendi-epbx (RETACRIT) injection Given 0 11:33 AM CDT 8,000 Units 8,000 Units 8,000 Units, Slow IV Push, DIALYSIS ONCE - [facility], 1 dose, 12/26/19 at 0700, Routine, human geography faculty member approving Restricted medication: NACHO HAGER FENTanyl PF (SUBLIMAZE (PF)) injection Given 12/23/2019 9:35 AM CDT 50 mcg Slow IV Push, PRN, Starting Sat12/23/19 at 0832, Until Sat12/23/19 at 0935, Routine Given 12/23/2019 8:32 AM CDT 50 mcg heparin (PF) 1,000 unit/mL injection Given 12/23/2019 8:41 PM C DT 4,100 Units 4,100 Units 4,100 Units, Slow IV Push, DIALYSIS ONCE - [facility], 1 dose, Sat12/23/19 at 1900, Routine heparin flush (PF) 2,000 units in 1000 mL Given 2019 8:43 AM CDT 3,000 mL NS RTU injection IV Push, PRN, Starting Sat12/23/19 at 0843, Until Sat12/23/19 at 0843, Routine iohexol (OMNIPAQUE 300-100 mL) Given by Provider 12/23/2019 9:32 A M CDT 400 mL injection 400 mL 400 mL, Injection, ONCE, 1 dose, Sat12/23/19 at 0945, Routine iohexol (OMNIPAQUE 350 BULK-150 mL) Given 12/22/2019 11:49 AM CD T 150 mL injection 150 mL 150 mL, Intravenous, ONCE, 1 dose, 12/22/19 at 1200, Routine lidocaine 1% (PF) (XYLOCAINE) Given 12/23/2019 8:42 AM CDT 10 m L Right Leg injection Subcutaneous, PRN, Starting Sat12/23/19 at 0842, Until Sat12/23/19 at 0842, Routine lidocaine 2% viscous (LIDOCAINE VISCOUS) 2 Given 12/23/2019 9:4 9 AM CDT 1 mL Face % solution Oral, PRN, Starting Sat12/23/19 at 0949, Until Sat12/23/19 at 0949, Routine loperamide (IMODIUM A-D) capsule 2 mg Given 12/25/2019 4:14 PM CDT 2 mg 2 mg, Oral, ONCE NOW, 1 dose, Sat12/25/19 at 1215, Routine meropenem (MERREM) 500 mg in NaCl 0.9% (NS) Given 10/2019 4:20 PM CDT 500 mg 100 mL MINI-BAG 500 mg, IV Piggyback, Administer over 60 Minutes, Q24H ABX, 6 doses, First dose (after last modification) on Sat12/23/19 at 1700, Last dose on Sat12/28/19 at 1700, NAVYA, Restricted use approved by: [address], Reason for Anti-Infective: Empiric Therapy for Suspected Infection, Empiric Therapy Site: Abdominal, Duration of therapy: 7 days Given 12/23/2019 9:30 PM CDT 500 mg metroNIDAZOLE in NaCl (iso-os) (FLAGYL I.V.) Given 11/2019 8:17 AM CDT 500 mg RTU IV infusion 500 mg 500 mg, IV Piggyback, Q8H ABX, 21 doses, First dose on Sat12/22/19 at 1700, Last dose on Sat12/29/19 at 0900, 100 mL, Reason for Anti-Infective: Empiric Therapy for Suspected Infection, Empiric Therapy Site: Abdominal, Duration of therapy: 7 days Given 12/25/2019 12:53 AM CDT 500 mg Given 12/24/2019 5:36 PM CDT 500 mg midazolam (VERSED) injection Given 12/23/2019 8:32 AM CDT 1 mg IV Push, PRN, Starting Sat12/23/19 at 0832, Until Sat12/23/19 at 0832, Routine morpHINE injection 2 mg Given 12/22/2019 8:07 PM CDT 1 mg 2 mg, Slow IV Push, Q6HPRN, Starting Sat12/22/19 at 1817, Until Sat12/22/19 at 2131, Routine, Pain (scale 7-10) NaCl 0.9% (NS) IV infusion New Bag 12/23/2019 8:43 AM CDT 500 mL IV Infusion, CONTINUOUS PRN, Starting Sat12/23/19 at 0843, Until Sat12/23/19 at 0843, Routine ondansetron (ZOFRAN (PF)) injection 4 mg Given 12/22/2019 11:05 AM CDT 4 mg 4 mg, Slow IV Push, ONCE, 1 dose, Sat12/22/19 at 1145, Routine ondansetron (ZOFRAN (PF)) injection 4 mg Given 12/22/2019 4:14 PM CDT 4 mg 4 mg, Slow IV Push, ONCE, 1 dose, Sat12/22/19 at 1715, Routine ondansetron (ZOFRAN (PF)) injection Given 12/23/2019 9:40 AM CDT 4 mg Slow IV Push, PRN, Starting Sat12/23/19 at 0940, Until Sat12/23/19 at 0940, Routine pantoprazole (PROTONIX) 40 mg in NaCl 0.9% Given 12/25/2019 8:1 8 AM CDT 40 mg (NS) 100 mL MINI-BAG 40 mg, IV Piggyback, Q12H, First dose on Sat12/22/19 at 2000, Until Discontinued, 100 mL Given 12/24/2019 7:38 PM CDT 40 mg Given 12/24/2019 9:09 AM CDT 40 mg simethicone (GAS RELIEF (SIMETHICONE)) Given 12/25/2019 9:07 AM CDT 160 mg chewable tablet 160 mg 160 mg, Oral, DAILY, First dose on Sat12/25/19 at 0900, Until Discontinued, Routine traMADoL (ULTRAM) tablet 50 mg Given 12/23/2019 4:39 AM CDT 50 mg 50 mg, Oral, Q6HPRN, Starting Sat12/22/19 at 2129, Until Sat12/23/19 at 1205, Routine, Pain (scale 7-10) Given 12/22/2019 9:46 PM CDT 50 mg documented in this encounter Additional Health Concerns Infection Onset Date Last Indicated Resolved Time COVID-19 Rule Out 12/22/2019 12/22/2019 12/22/2019 12: 51 PM CDT documented as of this encounter Insurance Payer Benefit Plan / Subscriber ID Effective Phone Address T ype Group Dates MEDICARE MEDICARE PART [id number] 2010-Pres [phone] Medicare A & B ent [id number] [place] [address] COMMERCIAL COMMERCIAL [id number] 2017-Pres HMO/ PPO/POS NON-CONTRACT NON-CONTRACT ent GENERIC GENERIC (Home) JIGNA [phone] [address] [place] ([place]) [place] [address] documented as of this encounter
[2020-01-27 00:05] LABS: Basophils % 0.1 % (0-1.3)
[2020-01-27 00:22] LABS: Lymphocytes % 14.9 % (15.3-44.8); RBC Red Blood Cell Count 3.63 M/uL (4.33-5.43)
[2020-01-27 00:25] LABS: Protime INR 0.98
[2020-01-27 00:37] LABS: Potassium 4.8 mmol/L (3.5-5.1)
[2020-01-27 00:39] LABS: Troponin (Emerg Dept Use Only) 0.58 ng/mL (0.0-0.045)
--- NOTE | 2020-01-27 00:51 | EDPHYS ---
Physician Documentation [facility] Name: Rosales Sandoval Age: 74 yrs Sex: Male : 1945 Arrival Date: 01/26/2020 Time: 23:46 Bed 8 Private MD: ED Physician Jey Vicente HPI: 01/26 00:00 This 74 yrs old Male presents to ER via EMS with complaints of AMS, right rn sided weakness. 00:00 The patient presents with decreased mental status, decreased responsiveness. Onset: The rn symptoms/episode began/occurred at an unknown time. Current symptoms: In the emergency department the patient's symptoms are unchanged from the initial presentation. It is unknown whether or not the patient has had similar symptoms in the past. Per EMS reports, last seen normal around [id number] prior to going to bed, called 911 after being found down on ground, possible fall, EMS reports aphasic and not moving right sided of body, told them normally ambulatory and clear speech. Is dialysis patient. EMS reports slight improvement now that is moaning and making effort to speak. MWF dialysis. . Historical: - Allergies: 00:02 blood thinners; rr5 00:02 teramycin; rr5 - Home Meds: 00:02 alprazolam 0.5 mg Oral tab 1 tab twice a day [Active]; metoprolol tartrate 25 mg Oral rr5 tab 3 tabs 2 times per day [Active]; nifedipine 30 mg Oral tr24 1 tab twice a day [Active]; terazosin 5 mg Oral cap 1 cap daily as needed [Active]; - PMHx: 00:02 ESRD; Hypertension; Pancreatitis; dialysis MWF; rr5 - PSHx: 00:02 dialysis port right side chest; rr5 - Immunization history:: Adult Immunizations unknown. - Social history:: Smoking status: unknown. - Unable to obtain history due to: altered mental status. ROS: 00:00 Unable to obtain ROS due to altered mental status. rn Exam: 00:00 Constitutional: Awake, moaning to pain but incomprehensible speech. Head/Face: rn Normocephalic, atraumatic. Eyes: No nystagmus, eyes deviated to left, do not cross midline to right ENT: dry MM Neck: in ccollar Cardiovascular: Irregular rhythm. Regular rate. No pulse deficits. Respiratory: No increased work of breathing, no retractions or nasal flaring. Abdomen/GI: soft, non-tender MS/ Extremity: Pulses equal, no cyanosis. Neuro: Awake but does not follow commands, GCS 10, does withdraw all extremities from painful stimuli, seems weaker on right side, unable to life arm or leg off bed, but can slide them away. Speech incomprehensible. Vital Signs: 01/25 23:51 BP 178 / 91; Pulse 77; Resp 16; Temp 96.7; Pulse Ox 98% ; rr5 01/26 00:32 BP 182 / 82; Pulse 86; Resp 19; Pulse Ox 99% ; rr5 00:54 Weight 79.38 kg; sg 01:15 BP 169 / 95; Pulse 80; Resp 17; Temp 97.1; Pulse Ox 98% on 3 lpm NC; rr5 NIH Stroke Scale Scores: 01/25 23:53 NIHSS Score: 15 rn 01/26 00:00 NIHSS Score: 24 rr5 [place] Coma Score: 01/25 23:53 Eye Response: spontaneous(4). Verbal Response: incomprehensible(2). Motor Response: rn withdraws from pain(4). Total: 10. 01/26 00:00 Eye Response: to pain(2). Verbal Response: none(1). Motor Response: localizes pain(5). rr5 Total: 8. 00:32 Eye Response: spontaneous(4). Verbal Response: incomprehensible(2). Motor Response: rr5 withdraws from pain(4). Total: 10. MDM: 01/25 23:49 Patient medically screened. rn 01/26 00:13 ED course: CT shows evidence of hyperdense left MCA sign with rios/white matter rn differentiation loss. Per report, out of window since last known normal around 1830. Initiated transfer to [facility] for ischemic stroke and possibility of intervention there since no TPA indicated. . 00:23 ED course: NO TPA ordered given outside of TPA window. . rn 00:28 ED course: [facility] declined, states at capacity. . ED course: Attempting to call sarah ortega. . 00:41 Differential Diagnosis: CVA. Data reviewed: vital signs, nurses notes, lab test rn result(s), EKG, radiologic studies, CT scan, and as a result, I will admit patient. Counseling: I had a detailed discussion with the patient and/or guardian regarding: the historical points, exam findings, and any diagnostic results supporting the discharge/admit diagnosis, lab results, radiology results, the need to transfer to another facility, for higher level of care. ED course: Spoke with , who arrived, confirms last known normal around [id number], was eating then fell asleep. Next saw him on floor. Is outside of TPA window. . 00:46 ED course: On phone with char ortega, [facility] orte[facility] ER on divert, they are making rn exception and accepting straight to neuro ICU for evaluation and treatment of MCA/LVO. Getting life flight for transfer. . 01/25 23:50 Order name: Troponin (emerg Dept Use Only); Complete Time: 00:46 01/25 23:50 Order name: Basic Metabolic Panel; Complete Time: 00:46 01/25 23:50 Order name: CBC with Diff; Complete Time: 00:46 01/25 23:50 Order name: Protime (+inr); Complete Time: 00:46 01/25 23:50 Order name: Ptt, Activated; Complete Time: 00:46 rn 01/26 00:07 Order name: Glucose, Ancillary Testing; Complete Time: 00:18 EDDE 01/25 23:50 Order name: CT Stroke Brain w/o Contrast rn 01/25 23:50 Order name: Stroke CXR 1 View rn 01/25 23:50 Order name: EKG; Complete Time: 23:51 rn 01/25 23:50 Order name: Accucheck; Complete Time: 00: rn 01/25 23:50 Order name: Cardiac monitoring; Complete Time: 00: rn 01/25 23:50 Order name: EKG - Nurse/Tech; Complete Time: 00: rn 01/25 23:50 Order name: IV Saline Lock; Complete Time: 00: rn 01/25 23:50 Order name: Labs collected and sent; Complete Time: 00: rn 01/25 23:50 Order name: NPO; Complete Time: 00: rn 01/25 23:50 Order name: O2 Per Protocol; Complete Time: 00: rn 01/25 23:50 Order name: O2 Sat Monitoring; Complete Time: 00: rn 01/25 23:50 Order name: Stroke Swallow Screen; Complete Time: 01:37 rn Administered Medications: 00:40 Drug: foLIC Acid 1 mg Route: IVPB; Site: Other; rr5 01:25 Follow up: Response: No adverse reaction; IV Status: Completed infusion rr5 00:45 Drug: Aspirin Suppository 300 mg Route: FL; rr5 01:25 Follow up: Response: No adverse reaction rr5 Point of Care Testing: Blood Glucose: 01/25 23:50 Blood Glucose: 128 mg/dL; rr5 Ranges: Critical Glucose Levels:Adult <50 mg/dl or >400 mg/dl <40 mg/dl or >180 mg/dl Disposition: 01/26 00:46 Critical Care:. rn Disposition: 01/27/20 00:50 Transfer ordered to [facility]. Diagnosis are Aphasia following cerebral infarction, Hemiplegia and hemiparesis following cerebral infarction. - Reason for transfer: Higher level of care. - Accepting physician is Dr. Ignacio. - Condition is Serious. - Problem is new. - Symptoms are unchanged. Critical care time excluding procedures: 00:46 Critical care time: Bedside Care: 25 minutes, Consultation: 5 minutes, Family rn Intervention: 5 minutes. Total time: 35 minutes NIH Stroke Scale - NIH Stroke Score Date: 01/26/2020 Time: 23:53 Total Score = 15 1a. Level of Consciousness (LOC) - 1(Not Alert) 1b. Level of Consciousness (LOC) (Year \T\ Age) - 2(Neither) 1c. LOC Commands (Open \T\ Closes Eyes/Lacquer Sprayer) - 2(Neither) 2. Best Gaze (Lateral Gaze Paresis) - 1(Partial gaze palsy) 3. Visual Field Loss - 0(No visual loss) 4. Facial Palsy - 0(Normal) 5a. Left Arm: Motor (10-second hold) - 0(No drift) 5b. Right Arm: Motor (10-second hold) - 2(Drift, some effort against gravity) 6a. Left Leg: Motor (5-second hold - always test supine) - 0(No drift) 6b. Right Leg: Motor (5-second hold - always test supine) - 2(Drift, some effort against gravity) 7. Limb Ataxia (finger/nose \T\ heel/tierney - test with eyes open) - 0(Absent) 8. Sensory Loss (pinprick arms/legs/face) - 1(Mild to moderate loss) 9. Best Language: Aphasia (description/naming/reading) - 2(Severe aphasia) 10. Dysarthria (speech clarity - read or repeat words) - 2(Severe) 11. Extinction and Inattention (visual/tactile/auditory/spatial/personal) - 0(No abnormality) Initials: sarah NIH Stroke Scale - NIH Stroke Score Date: 01/27/2020 Time: 00:00 Total Score = 24 1a. Level of Consciousness (LOC) - 1(Not Alert) 1b. Level of Consciousness (LOC) (Year \T\ Age) - 2(Neither) 1c. LOC Commands (Open \T\ Closes Eyes/Lacquer Sprayer) - 2(Neither) 2. Best Gaze (Lateral Gaze Paresis) - 1(Partial gaze palsy) 3. Visual Field Loss - 1(Partial hemianopia) 4. Facial Palsy - 0(Normal) 5a. Left Arm: Motor (10-second hold) - 2(Drift, some effort against gravity) 5b. Right Arm: Motor (10-second hold) - 3(No effort against gravity) 6a. Left Leg: Motor (5-second hold - always test supine) - 2(Drift, some effort against gravity) 6b. Right Leg: Motor (5-second hold - always test supine) - 3(No effort against gravity) 7. Limb Ataxia (finger/nose \T\ heel/tierney - test with eyes open) - 0(Absent) 8. Sensory Loss (pinprick arms/legs/face) - 1(Mild to moderate loss) 9. Best Language: Aphasia (description/naming/reading) - 2(Severe aphasia) 10. Dysarthria (speech clarity - read or repeat words) - 2(Severe) 11. Extinction and Inattention (visual/tactile/auditory/spatial/personal) - 2(Profound) Initials: rr5 Signatures: Dispatcher [employer] EDJey Jacobson MD MD rn Swanson, Donovan ds4 Luis Wells RN RN rr5 Corrections: (The following items were deleted from the chart) 00:18 00:00 Constitutional: Awake, moaning to pain but incomprehensible speech. rn Head/Face: Normocephalic, atraumatic. Eyes: No nystagmus, eyes deviated to left, do not cross midline to right ENT: dry MM Neck: in ccollar Cardiovascular: Regular rate and rhythm. No pulse deficits. Respiratory: No increased work of breathing, no retractions or nasal flaring. Abdomen/GI: soft, non-tender MS/ Extremity: Pulses equal, no cyanosis. Neuro: Awake but does not follow commands, GCS 10, does withdraw all extremities from painful stimuli, seems weaker on right side, unable to life arm or leg off bed, but can slide them away. Speech incomprehensible. rn 00:32 00:00 Constitutional: Awake, moaning to pain but incomprehensible speech. rn Head/Face: Normocephalic, atraumatic. Eyes: No nystagmus, eyes deviated to left, do not cross midline to right ENT: dry MM Neck: in ccollar Cardiovascular: Regular rate and rhythm. No pulse deficits. Respiratory: No increased work of breathing, no retractions or nasal flaring. Abdomen/GI: soft, non-tender MS/ Extremity: Pulses equal, no cyanosis. Neuro: Awake but does not follow commands, GCS 10, does withdraw all extremities from painful stimuli, seems weaker on right side, unable to life arm or leg off bed, but can slide them away. Speech incomprehensible. rn 00:38 00:18 CORONAVIRUS+MR.LAB.BRZ ordered. EDDE EDMS 01:27 00:50 01/27/2020 00:50 Transfer ordered to [facility]. Diagnosis ds4 is Aphasia following cerebral infarction; Hemiplegia and hemiparesis following cerebral infarction. Reason for transfer: Higher level of care. Accepting physician is Dr. Ignacio. Condition is Serious. Problem is new. Symptoms are unchanged. rn
--- NOTE | 2020-01-27 00:51 | ER ---
Nurse's Notes [facility] Name: Rosales Sandoval Age: 74 yrs Sex: Male : 1945 Arrival Date: 01/26/2020 Time: 23:46 Bed 8 Private MD: Diagnosis: Aphasia following cerebral infarction;Hemiplegia and hemiparesis following cerebral infarction Presentation: 01/25 23:51 Chief complaint: EMS states: patient found on the floor by his around 2315H. he rr5 cannot move his right side, aphasic. he was last seen normal 1830-1900H. Coronavirus screen: unable to obtain. Ebola Screen: Unable to complete the Ebola screening because:. An acute neurological deficit is present. The charge nurse has been notified. The patient has been moved to a treatment area. Initial Sepsis Screen: Does the patient meet any 2 criteria? No. Patient's initial sepsis screen is negative. Does the patient have a suspected source of infection? No. Patient's initial sepsis screen is negative. Risk Assessment: Do you want to hurt yourself or someone else? Unable to obtain. Onset of symptoms was January 26, 2020 at 18:30. 23:51 Method Of Arrival: EMS: [facility] rr5 23:51 Acuity: CASSIDY 2 rr5 Triage Assessment: 01/26 00:00 General: Appears in no apparent distress. Behavior is aphasic. rr5 00:00 The onset of the patients symptoms was more than three but less than six hours ago. rr5 00:00 The onset of the patients symptoms was January 26, 2020 at 18:30. rr5 00:00 Neuro: Reports stated last seen normal 1830-1900H. rr5 Stroke Activation: Symtpom onset >3 hours and < 6 hours Physician: Stroke Attending; Name: ; Notified At: ; Arrived At: Physician: Chief Stroke Resident; Name: ; Notified At: ; Arrived At: Physician: Stroke Resident; Name: ; Notified At: ; Arrived At: Physician: ED Attending; Name: jose; Notified At: 23:38; Arrived At: 23:38 Physician: ED Resident; Name: ; Notified At: ; Arrived At: Historical: - Allergies: 00:02 blood thinners; rr5 00:02 teramycin; rr5 - Home Meds: 00:02 alprazolam 0.5 mg Oral tab 1 tab twice a day [Active]; metoprolol tartrate 25 mg Oral rr5 tab 3 tabs 2 times per day [Active]; nifedipine 30 mg Oral tr24 1 tab twice a day [Active]; terazosin 5 mg Oral cap 1 cap daily as needed [Active]; - PMHx: 00:02 ESRD; Hypertension; Pancreatitis; dialysis MWF; rr5 - PSHx: 00:02 dialysis port right side chest; rr5 - Immunization history:: Adult Immunizations unknown. - Social history:: Smoking status: unknown. - Unable to obtain history due to: altered mental status. Screenin:00 VAN Screening: Arm Drift: Flaccid or no effort against gravity. Visual Disturbance: rr5 Aphasia: Expressive aphasia noted. Provider notified of +VAN scoring. Neglect: Patient is noted to be ignoring one side of their body. 00:04 Abuse screen: Denies threats or abuse. Denies injuries from another. Nutritional rr5 screening: No deficits noted. Tuberculosis screening: No symptoms or risk factors identified. Fall Risk Secondary diagnosis (15 points) CVA, IV access (20 points). Mental Status- Overestimates/Forgets Limitations (15 pts.). Total Roque Fall Scale indicates High Risk Score (45 or more points). Fall prevention measures have been instituted. Side Rails Up X 2 Placed Close to Nursing Station Frequent Obs/Assessments Occuring As available patient and family educated on Fall Prevention Program and Strategies. 00:05 Patient has been NPO before screening. The patient is not alert, or is unable to follow rr5 commands. Bedside swallow screening discontinued. Patient kept NPO until cleared by Speech Therapy or Physician. Assessment: 00:00 General: Appears in no apparent distress. Behavior is aphasic. Pain: Unable to use pain rr5 scale. Patient is disoriented. Neuro: Level of Consciousness is confused, Pupils are PERRLA, right sided weakness, respond to pain, aphasic. Cardiovascular: Capillary refill < 3 seconds Patient's skin is warm and dry. Rhythm is atrial fibrillation. Respiratory: Airway is patent Respiratory effort is even, unlabored, Respiratory pattern is regular, symmetrical. GI: No signs and/or symptoms were reported involving the gastrointestinal system. : No signs and/or symptoms were reported regarding the genitourinary system. EENT: No signs and/or symptoms were reported regarding the EENT system. Derm: Skin temperature is warm Wound noted dorsal aspect of left forearm Wound is skin peeled. Musculoskeletal: Capillary refill < 3 seconds. 00:00 VAN Scoring: Arm Drift: Flaccid/no antigravity Visual Disturbance: Field Cut: Abnormal rr5 visual rosa noted. Provider notified of +VAN scoring. Aphasia: Expressive aphasia noted. Provider notified of +VAN scoring. Neglect: Patient is noted to be ignoring one of side of their body. Provider notified of +VAN scoring. 00:05 Patient has been NPO before screening. The patient is not alert and/or unable to follow rr5 commands. Bedside swallow screen discontinued. Patient kept NPO until cleared by Speech Therapy or Physician. The patient failed the bedside swallow screening. The patient will be kept NPO until cleared by Speech Therapy or Physician. Provider notified of bedside swallow screening results: Jey Vicente MD. aphasic The patient is exhibiting difficulty speaking. aphasic The patient is exhibiting difficulty understanding words. unable to follow command not performed not performed. T-PA (Activase) Screening:. 00:30 Reassessment: Patient appears in no apparent distress at this time. awaiting for rr5 results. 00:50 Reassessment: creatinine 9.60 troponin 0.58 relayed by myriam epstein, ED rr5 provider aware. 01:25 Reassessment: rayna from [facility] report given and accepted the case. rr5 01:26 Reassessment: meagan gave report to [facility] vital signs hemodynamically stable. rr5 Vital Signs: 01/25 23:51 BP 178 / 91; Pulse 77; Resp 16; Temp 96.7; Pulse Ox 98% ; rr5 01/26 00:32 BP 182 / 82; Pulse 86; Resp 19; Pulse Ox 99% ; rr5 00:54 Weight 79.38 kg; sg 01:15 BP 169 / 95; Pulse 80; Resp 17; Temp 97.1; Pulse Ox 98% on 3 lpm NC; rr5 [place] Coma Score: 01/25 23:53 Eye Response: spontaneous(4). Verbal Response: incomprehensible(2). Motor Response: rn withdraws from pain(4). Total: . 01/26 00:00 Eye Response: to pain(2). Verbal Response: none(1). Motor Response: localizes pain(5). rr5 Total: 8. 00:32 Eye Response: spontaneous(4). Verbal Response: incomprehensible(2). Motor Response: rr5 withdraws from pain(4). Total: 10. NIH Stroke Scale Scores: 01/25 23:53 NIHSS Score: 15 rn 01/26 00:00 NIHSS Score: 24 rr5 ED Course: 01/25 23:46 Patient arrived in ED. bb 23:48 Jey Vicente MD is Attending Physician. rn 23:50 Luis Wells, ABHILASH is Primary Nurse. rr5 23:50 Initial lab(s) drawn, by me, sent to lab. Missed attempt(s): 20 gauge in left arm pit sg area. Bleeding controlled, band aid applied, catheter tip intact. 23:56 Triage completed. rr5 23:57 CT Stroke Brain w/o Contrast In Process Unspecified. EDMS 23:57 Inserted saline lock: 20 gauge in left ,using aseptic technique. Shoulder Blood sg collected. 01/26 00:03 Arm band placed on right wrist. rr5 00:03 Patient has correct armband on for positive identification. Bed in low position. Call rr5 light in reach. Side rails up X2. monitor car operator on. Pulse ox on. NIBP on. 00:05 EKG done, by ED staff, reviewed by Jey Vicente MD. rr5 00:13 Initiated transfer with Nena at [facility]. tt3 00:27 Nena called back and stated that the transfer request was denied due to capacity. tt3 00:28 Initiated transfer with Fabiana at [facility]. tt3 00:30 Stroke CXR 1 View In Process Unspecified. EDMS 00:32 covid. rr5 00:42 Fabiana called back with their stroke physician to speak with Dr. Vicente regarding the tt3 transfer request. 01:25 No provider procedures requiring assistance completed. Patient transferred, IV remains rr5 in place. intact, No redness/swelling at site. Administered Medications: 00:40 Drug: foLIC Acid 1 mg Route: IVPB; Site: Other; rr5 01:25 Follow up: Response: No adverse reaction; IV Status: Completed infusion rr5 00:45 Drug: Aspirin Suppository 300 mg Route: NE; rr5 01:25 Follow up: Response: No adverse reaction rr5 Point of Care Testing: Blood Glucose: 01/25 23:50 Blood Glucose: 128 mg/dL; rr5 Ranges: Outcome: 01/26 00:50 ER care complete, transfer ordered by . rn 01:25 Transferred by ground EMS to [facility], Transfer form completed. rr5 01:25 Condition: stable rr5 01:25 Instructed on the need for transfer. 01:27 Patient left the ED. ds4 NIH Stroke Scale - NIH Stroke Score Date: 01/26/2020 Time: 23:53 Total Score = 15 1a. Level of Consciousness (LOC) - 1(Not Alert) 1b. Level of Consciousness (LOC) (Year \T\ Age) - 2(Neither) 1c. LOC Commands (Open \T\ Closes Eyes/Layboy Operator) - 2(Neither) 2. Best Gaze (Lateral Gaze Paresis) - 1(Partial gaze palsy) 3. Visual Field Loss - 0(No visual loss) 4. Facial Palsy - 0(Normal) 5a. Left Arm: Motor (10-second hold) - 0(No drift) 5b. Right Arm: Motor (10-second hold) - 2(Drift, some effort against gravity) 6a. Left Leg: Motor (5-second hold - always test supine) - 0(No drift) 6b. Right Leg: Motor (5-second hold - always test supine) - 2(Drift, some effort against gravity) 7. Limb Ataxia (finger/nose \T\ heel/tierney - test with eyes open) - 0(Absent) 8. Sensory Loss (pinprick arms/legs/face) - 1(Mild to moderate loss) 9. Best Language: Aphasia (description/naming/reading) - 2(Severe aphasia) 10. Dysarthria (speech clarity - read or repeat words) - 2(Severe) 11. Extinction and Inattention (visual/tactile/auditory/spatial/personal) - 0(No abnormality) Initials: abhilash NIH Stroke Scale - NIH Stroke Score Date: 01/27/2020 Time: 00:00 Total Score = 24 1a. Level of Consciousness (LOC) - 1(Not Alert) 1b. Level of Consciousness (LOC) (Year \T\ Age) - 2(Neither) 1c. LOC Commands (Open \T\ Closes Eyes/Layboy Operator) - 2(Neither) 2. Best Gaze (Lateral Gaze Paresis) - 1(Partial gaze palsy) 3. Visual Field Loss - 1(Partial hemianopia) 4. Facial Palsy - 0(Normal) 5a. Left Arm: Motor (10-second hold) - 2(Drift, some effort against gravity) 5b. Right Arm: Motor (10-second hold) - 3(No effort against gravity) 6a. Left Leg: Motor (5-second hold - always test supine) - 2(Drift, some effort against gravity) 6b. Right Leg: Motor (5-second hold - always test supine) - 3(No effort against gravity) 7. Limb Ataxia (finger/nose \T\ heel/tierney - test with eyes open) - 0(Absent) 8. Sensory Loss (pinprick arms/legs/face) - 1(Mild to moderate loss) 9. Best Language: Aphasia (description/naming/reading) - 2(Severe aphasia) 10. Dysarthria (speech clarity - read or repeat words) - 2(Severe) 11. Extinction and Inattention (visual/tactile/auditory/spatial/personal) - 2(Profound) Initials: rr5 Signatures: Dispatcher [employer] EDMeagan Guadarrama RN RN sg Mei Prakash RN RN Jey Rose MD MD rn Swanson, Donovan ds4 Luis Wells RN RN rr5 Dilip Gerardo tt3 Corrections: (The following items were deleted from the chart) 02:54 00:00 NIHSS Score: 25 rr5 rr5
[2020-01-27] MEDS ORDERED: ASPIRIN 600 MG/SUPP PR ONE (00:58)
[2020-01-27] MEDS ORDERED: FOLIC ACID 5 MG/ML VIAL ONE (00:59)
--- NOTE | 2020-01-27 07:24 | EKG ---
Test Date: 2020-01-27 Test Time: 00:00:11 Car Washer: JOE MEASUREMENT RESULTS: Intervals: Rate: 84 NM: QRSD: 94 QT: 378 QTc: 446 [place]: P: NM: QRS: -50 T: 108 INTERPRETIVE STATEMENTS: Atrial fibrillation with premature ventricular or aberrantly conducted complexes Left axis deviation Inferior infarct, age undetermined ST & T wave abnormality, consider lateral ischemia or digitalis effect Abnormal ECG Compared to ECG 09/03/2019 21:31:10 Ventricular premature complex(es) now present ST (T wave) deviation now present Possible ischemia now present Sinus rhythm no longer present Atrial premature complex(es) no longer present First degree AV block no longer present Myocardial infarct finding still present Electronically Signed On 01-27-20 07:24:18 SONAR TECHNICIAN by Larry Murguia
[2020-01-27 08:54] VITALS: TEMP 96.7
[2020-01-27 08:55] VITALS: BP 182/82; O2SAT 99
--- NOTE | 2020-01-27 08:55 | RAD REPORT ---
EXAM DESCRIPTION: RAD - Chest Single View - 01/27/2020 12:30 am CLINICAL HISTORY: found down, AMS, right sided deficit Chest pain. COMPARISON: Chest Single View dated 09/03/2019; ABDOMEN 1 VIEW KUB dated 01/06/2013; ABDOMEN 1 VIEW K UB dated 12/10/2012 FINDINGS: Portable technique limits examination quality. Moderate bilateral pulmonary opacities are present which may represent pulmonary edema or pneumonia. The heart is mildly enlarged in size. Right-sided venous catheter its tip in the SVC.
--- NOTE | 2020-01-27 10:16 | RAD REPORT ---
EXAM DESCRIPTION: CT of the head without contrast CLINICAL HISTORY: Right sided deficits;Confused;Aphasia COMPARISON: None available TECHNIQUE: Axial CT of the head obtained from the skull apex to the skull base without contrast. FINDINGS: No acute intracranial hemorrhage identified. No mass, mass effect, shift of the midline, o r abnormal extra-axial fluid. The ventricular system and sulcal spaces are mildly enlarged compatible with mild cerebral atrophy. Scattered areas of hypodensity throughout the supratentorial white mat ter are nonspecific and may be related to chronic small vessel ischemic change. Castro-white matter dif ferentiation the left MCA distribution and questionable hyperdensity in the distal M1 segment of the left MCA. The visualized paranasal sinuses and mastoid air cells are well aerated. No skull fracture identifi ed. Visualized orbits and globes are unremarkable. Atherosclerotic calcification of the intracranial internal carotid arteries. IMPRESSION: 1. Loss of castro-white matter differentiation the left MCA with possible hyperdense lef t MCA sign. Findings suggest left MCA distribution infarction. No mass effect or hemorrhage at this t thaddeus. THIS REPORT CONTAINS FINDINGS THAT MAY BE CRITICAL TO PATIENT CARE: The findings were verbally discu ssed via telephone conference with Dr. Vicente by Dr. Erasto Harris on 01/27/2020 12:12 AM SWAGE TOOLSETTER. T he results were acknowledged and understood. This exam was performed according to our departmental dose-optimization program, which includes autom ated exposure control, adjustment of the mA and/or kV according to patient size and/or use of iterati ve reconstruction technique. Electronically signed by: Erasto Harris 01/27/2020 12:13 AM SWAGE TOOLSETTER Due to temporary technical issues with the PACS/Fluency reporting system, reports are being signed by the in house radiologist without review as a courtesy to ensure prompt reporting. The interpreting r adiologist is fully responsible for the content of the report.
== END 2020-01-27 01:27 | disposition short-term general hospital (02) ==
LOC: ER 23:42
DX: I63.9 Cerebral infarction, unspecified (principal); R47.01 Aphasia; I69.351 Hemiplegia and hemiparesis following cerebral infarction affecting right dominant side; R29.724 NIHSS score 24; I12.0 Hypertensive chronic kidney disease with stage 5 chronic kidney disease or end stage renal disease; N18.6 End stage renal disease; Z99.2 Dependence on renal dialysis; Z20.828 Contact with and (suspected) exposure to other viral communicable diseases; Z88.3 Allergy status to other anti-infective agents; Z88.8 Allergy status to other drugs, medicaments and biological substances
CPT/HCPCS: 96365; 93005; 85025; 80048; 36415; 85610; 82947; 85730; 84484; 70450; 71045; 99285; U0003